=== PATIENT | female | born 1950 | race Caucasian/White ===

== ENCOUNTER → 2018-03-30 08:50 | Outpatient (CLI) | payer MEDICARE, OTHER, SELFPAY ==
[2018-03-30 10:02] LABS: Alanine Aminotransferase 45 IU/L (9-52); Albumin 4.5 g/dL (3.5-5.0); Albumin Globulin Ratio 1.7 (1.0-2.8); Alkaline Phosphatase 70 U/L (38-126); Aspartate Aminotransferase 44 IU/L (14-36); BUN Creatinine Ratio 21.7 (6-22); Bilirubin Total 0.9 mg/dL (0.2-1.3); Blood Urea Nitrogen 13 mg/dL (7-17); Calcium 9.4 mg/dL (8.4-10.2); Carbon Dioxide 34 mmol/L (22-32); Chloride 98 mmol/L (98-107); Cholesterol 147 mg/dL (140-199); Estimated Glomerular Filt Rate > 60.0 mL/min (>60); Globulin 2.7 g/dL (1.7-4.1); Glucose 91 mg/dL (80-110); HDL Cholesterol 64 mg/dL (40-60); HEMOLYSIS < 15 (0-50); LDL Cholesterol Calculated 66 mg/dL (<100); Potassium 4.3 mmol/L (3.4-5.1); Sodium 140 mmol/L (137-145); Total Protein 7.2 g/dL (6.3-8.2); Triglycerides 85 mg/dL (35-150)
[2018-03-30 10:35] LABS: TSH w/ Reflex to FT4 1.98 uIU/mL (0.47-4.68)
== END ==
PROVIDERS: PCP Family Medicine; Visit Provider Family Medicine
DX: E78.5 Hyperlipidemia, unspecified (principal); I10 Essential (primary) hypertension; R41.3 Other amnesia
CPT/HCPCS: 36415; 80053; 80061; 84443

== ENCOUNTER → 2018-05-10 11:33 | Outpatient (CLI) | payer MEDICARE, OTHER, SELFPAY ==
[2018-05-10 17:51] LABS: Bilirubin Urine UA NEGATIVE (NEGATIVE); Color Urine UA RED; Glucose Urine UA NEGATIVE (Normal); Ketones Urine UA NEGATIVE (NEGATIVE); Leukocyte Esterase Urine UA 3+ (NEGATIVE); Nitrite Urine UA NEGATIVE (Negative); Occult Blood Urine UA 3+ (Negative); Protein Urine UA 1+ (Negative); Specific Gravity Urine UA 1.015 (1.000-1.035); Urobilinogen Urine UA 0.2 E.U./dL (0.2)
[2018-05-10 17:52] LABS: Appearance Urine UA OTHER
[2018-05-10 18:17] LABS: Amorphous Sediment Urine 2+; RBC Urine >100/HPF (0-5/HPF); Squamous Epithelial Cell Urine 0-1 /HPF; WBC Urine 10-30/HPF (0-5/HPF)
[2018-05-10 18:18] LABS: Bacteria Urine Few (2-10); Culture Indicated Urine Specimen Cultured; Mucus Urine 1+ (Negative)
== END ==
PROVIDERS: PCP Family Medicine; Visit Provider Registered Nurse
DX: N39.0 Urinary tract infection, site not specified (principal)
CPT/HCPCS: 81001; 87077; 87086; 87186

== ENCOUNTER → 2018-05-21 13:36 | Outpatient (CLI) | payer MEDICARE, OTHER, SELFPAY ==
--- NOTE | 2018-05-21 13:38 | DI.MG.S_ITS ---
BILATERAL DIGITAL SCREENING MAMMOGRAM 3D/2D WITH CAD: 05/21/2018 CLINICAL: Routine screening. Family history of breast cancer. Comparison is made to exams dated: 05/17/2017 mammogram, 05/16/2016 mammogram, and 05/13/2015 mammogram - [facility]. The tissue of both breasts is extremely dense, which lowers the sensitivity of mammography. Current study was also evaluated with a Computer Aided Detection (CAD) system. There are mole markers on the right breast. No significant masses, calcifications, or other findings are seen in either breast. There has been no significant interval change. IMPRESSION: NEGATIVE There is no mammographic evidence of malignancy. A 1 year screening mammogram is recommended. This exam was interpreted at Station ID: [id number]. NOTE: For mammograms, a report in lay terms will be sent to the patient. Approximately 15% of breast malignancies will not be visualized mammographically. In the management of a palpable breast mass, a negative mammogram must not discourage biopsy of a clinically suspicious lesion. Electronically Signed By: Mohan mcqueen/bartolo:05/21/2018 20:28:23 letter sent: Normal Exam ACR BI-RADS Category 1: Negative 3341F
== END ==
PROVIDERS: PCP Family Medicine; Visit Provider Family Medicine
DX: Z12.31 Encounter for screening mammogram for malignant neoplasm of breast (principal); Z80.3 Family history of malignant neoplasm of breast
CPT/HCPCS: 77063; 77067

== ENCOUNTER → 2018-09-24 12:29 | Outpatient (CLI) | payer MEDICARE, OTHER, SELFPAY ==
[2018-09-24 12:57] LABS: Add Manual Diff / Slide Review NO; Basophils Absolute Auto 200 /uL (0-100); Basophils Percent Auto 2.7 % (0-2); Eosinophils Absolute Auto 300 /uL (0-450); Eosinophils Percent Auto 3.3 % (2-4); Hematocrit 41.6 % (36-46); Hemoglobin 13.9 g/dL (12.0-16.0); Lymphocytes Absolute Auto 2200 /uL (1100-4500); Lymphocytes Percent Auto 27.5 % (25-40); Mean Corpuscular HGB Conc 33.5 % (30-36); Mean Corpuscular Hemoglobin 30.3 PG (26-34); Mean Corpuscular Volume 90.5 fL (80-100); Monocytes Absolute Auto 500 /uL (0-900); Monocytes Percent Auto 6.8 % (3-14); Neutrophils Absolute Auto 4800 /uL (1500-7000); Neutrophils Percent Auto 59.7 % (50-75); Platelet Count 475 X10^3/uL (150-400); Red Cell Distribution Width 13.3 % (11.6-14.8); White Blood Cell Count 8.1 X10^3/uL (4.5-11.0)
[2018-09-24 13:54] LABS: Alanine Aminotransferase 36 IU/L (9-52); Albumin 4.7 g/dL (3.5-5.0); Albumin Globulin Ratio 1.9 (1.0-2.8); Alkaline Phosphatase 58 U/L (38-126); Aspartate Aminotransferase 35 IU/L (14-36); Bilirubin Total 0.5 mg/dL (0.2-1.3); Blood Urea Nitrogen 12 mg/dL (7-17); Calcium 9.9 mg/dL (8.4-10.2); Carbon Dioxide 29 mmol/L (22-32); Chloride 93 mmol/L (98-107); Estimated Glomerular Filt Rate > 60.0 mL/min (>60); Globulin 2.5 g/dL (1.7-4.1); Glucose 78 mg/dL (80-110); HEMOLYSIS < 15 (0-50); Sodium 133 mmol/L (137-145); Total Protein 7.2 g/dL (6.3-8.2)
== END ==
PROVIDERS: PCP Family Medicine; Visit Provider Family Medicine
DX: D47.3 Essential (hemorrhagic) thrombocythemia (principal); R94.5 Abnormal results of liver function studies
CPT/HCPCS: 36415; 80053; 85025

== ENCOUNTER → 2018-11-26 10:07 | Outpatient (CLI) | payer MEDICARE, OTHER, SELFPAY ==
[2018-11-26 11:06] LABS: Cholesterol 161 mg/dL (140-199); HDL Cholesterol 62 mg/dL (40-60); LDL Cholesterol Calculated 82 mg/dL (<100); Triglycerides 86 mg/dL (35-150)
== END ==
PROVIDERS: PCP Family Medicine; Visit Provider Family Medicine
DX: E78.5 Hyperlipidemia, unspecified (principal); E78.2 Mixed hyperlipidemia
CPT/HCPCS: 36415; 80061

== ENCOUNTER 2019-03-18 09:35 | Day surgery (SDC) | payer MEDICARE, OTHER, SELFPAY ==
--- NOTE | 2019-03-18 08:46 | PM.HP.1 ---
History of Present Illness History of Present Illness Date Patient Seen: 03/18/19 Time Patient Seen: 08:46 Chief complaint: [id number] Narrative: Patient presents for colorectal screening. They had a previous screening 5 years ago demonstrated a tubular adenoma polyp. On further history denies any recent gastrointestinal symptoms. No nausea, vomiting, abdominal pain, loss of appetite, unexplained weight loss, change in bowel habits, diarrhea, constipation, melena, hematochezia, or bright red blood per rectum. Patient History Medical History (Updated 03/18/19 @ 08:47 by Shakeel Christianson MD) Allergic rhinitis (Chronic) Cataract (Chronic 2013) Chicken pox (Resolved) Concussion (Resolved) Finger fracture, left (Resolved 2007) Foot pain (Chronic 2009) Hayfever (Chronic) Hearing loss (Chronic 2012) Hyperlipidemia (Chronic 12/16/14) Measles (Resolved) Meniere's disease (Chronic 12/16/14) Meniere's disease (Chronic 1993) Tinnitus (Chronic 1993) Tubular adenoma of colon (Resolved) Vertigo (Chronic 1993) Surgical History Anesthesia complication (Resolved) History of orthopedic surgery (Resolved 2007) Status post hysterectomy (Resolved 1986) Family History (Updated 02/04/18 @ 21:23 by Alida Rodriguez DO) Father Colon cancer Brain tumor Pneumonia Mother Hypertension Stroke Sister Breast cancer Brother Alcoholism Alcoholic liver disease Social History household members: spouse Smoking Status: Never smoker Family & Social History Family History (Updated 02/04/18 @ 21:23 by Alida Rodriguez DO) Father Colon cancer Brain tumor Pneumonia Mother Hypertension Stroke Sister Breast cancer Brother Alcoholism Alcoholic liver disease Tobacco & Substance use: Smoking Status Never smoker Meds Home Medications and Allergies Home Medications Medication Instructions Recorded Confirmed Type cetirizine 10 mg PO QDAY #0 04/27/12 12/28/18 History meclizine 25 mg PO TIDP PRN #0 06/10/17 12/28/18 History atorvastatin 20 mg tablet 10 mg PO HS #90 tab 09/26/18 12/28/18 Rx diazepam 2 mg tablet 2 mg PO Q4-6H PRN #20 tab 09/26/18 12/28/18 Rx hydrochlorothiazide 25 mg tablet 12.5 mg PO QAM #45 tab 10/01/18 12/28/18 Rx ondansetron 4 mg disintegrating 4 mg PO Q6-8H PRN #20 tab 10/19/18 12/28/18 Rx tablet mupirocin 2 % topical ointment 1 applictn TOP BID #15 gram 12/28/18 Rx gabapentin 100 mg capsule See Rx Instructions PO BEDTIME PRN 03/13/19 Rx #30 cap Allergies Allergy/AdvReac Type Severity Reaction Status Date / Time amoxicillin [AMOXICILLIN] Allergy Mild Verified 01/18/19 13:25 azithromycin [AZITHROMYCIN] Allergy Mild Verified 01/18/19 13:25 clavulanic acid Allergy Mild Verified 01/18/19 13:25 [CLAVULANIC ACID] codeine [CODEINE] Allergy Mild Verified 01/18/19 13:25 erythromycin base Allergy Mild Verified 01/18/19 13:25 [ERYTHROMYCIN BASE] Penicillins [PENICILLINS] Allergy Mild Verified 01/18/19 13:25 Review of Systems Review of Systems ROS Unobtainable: All systems reviewed & are unremarkable except as noted in HPI and below Exam Narrative Exam Narrative: General-adult female no acute distress, well nourished HEENT-moist mucous membranes, no scleral icterus Neck-supple with full range of motion, no lymphadenopathy Chest- no labored respirations, clear to auscultation bilaterally Cardiac-regular rate and rhythm Abdomen-soft, nontender, non distended Extremities-no edema, warm well perfused Neurological-alert and oriented x 3. No focal deficits Skin-normal temperature and turgor, no rashes or ulcers Assessment & Plan Assessment and plan (1) Screening for colon cancer: Current visit: No Status: Acute Assessment & Plan narrative: Patient is requiring colorectal screening. Colonoscopy is recommended. Technical details were discussed. Risks, benefits, alternatives explained. Risks including but not limited to sedation, aspiration, bleeding, pain, missed lesion, incomplete examination, need for further radiographic studies, colonic perforation, need for major abdominal surgery, and all attendant risks major surgery were discussed at length. All questions were answered to their satisfaction, and they voiced understanding.
[2019-03-18] MEDS: SODIUM CHLORIDE 0.9% 1,000 ML 200 ML IV (09:50)
[2019-03-18 09:59] VITALS: BP 146/71; PULSE 93; RESP 20; TEMP 36.4; O2SAT 98; BMI 21.1
[2019-03-18] MEDS: GLUCAGON,HUMAN RECOMBINANT 1 MG/ML VIAL IV (10:31)
[2019-03-18] MEDS: MIDAZOLAM 5 MG/5 ML VIAL IV (10:51)
[2019-03-18] MEDS: fentaNYL 250 MCG/5 ML INJ IV (10:52)
--- NOTE | 2019-03-18 10:54 | PM.OP.ENDO ---
Operative Date/Time/Diagnoses Date of procedure: 03/18/19 Time of procedure: 10:54 Pre-op diagnosis: Screening colonoscopy Post-op diagnosis: same Procedure & Clinicians Study performed: Colonoscopy Same procedure as scheduled: Yes Indications: 69-year-old female with prior endoscopy 5 years ago demonstrated a tubular adenoma polyp which was removed. Presents today for routine screening Surgeon: Shakeel Christianson Procedure Notes SCOAP/Timeout: Performed Procedure in detail: Digital rectal exam was performed that demonstrated external hemorrhoids no internal masses. This scope was carefully inserted into the rectum and advanced through the colon. The ileocecal valve was reached this was the extent of the colonoscopy. The scope was then to carefully withdrawn. Colon was notable only for diverticulosis. There were no masses polyps. Scope withdrawal time: 7 Sedation minutes: 22 Findings: diverticulosis Specimen(s): none sent Complications: none Impression: Diverticulosis Post-procedure Recommendations: Colonscopy in 10 years Disposition: same day surgery
[2019-03-18 10:56] VITALS: BP 126/58; PULSE 86; RESP 15; TEMP 36.6; O2SAT 97
[2019-03-18 11:01] VITALS: BP 117/55; PULSE 82; RESP 14; O2SAT 98
[2019-03-18 11:06] VITALS: BP 115/56; PULSE 81; RESP 14; O2SAT 98
[2019-03-18 11:11] VITALS: BP 117/59; PULSE 82; RESP 15; TEMP 36.2; O2SAT 95
[2019-03-18 11:16] VITALS: BP 111/61; PULSE 74; RESP 15; TEMP 36.5; O2SAT 99
== END 2019-03-18 11:30 | disposition home or self-care (01) ==
PROVIDERS: PCP Family Medicine; Visit Provider Surgery
PROC: 0DJD8ZZ Inspection of Lower Intestinal Tract, Via Natural or Artificial Opening Endoscopic (ICD-10-PCS; CPT 45378; principal; 2019-03-18 10:45)
DX: Z86.010 Personal history of colon polyps (principal); K57.30 Diverticulosis of large intestine without perforation or abscess without bleeding
CPT/HCPCS: G0105; 99152; J1610; J2250; J3010

== ENCOUNTER → 2019-03-22 11:22 | Outpatient (CLI) | payer MEDICARE, OTHER, SELFPAY ==
[2019-03-22 12:48] LABS: Add Manual Diff / Slide Review NO; Basophils Absolute Auto 100 /uL (0-100); Basophils Percent Auto 1.4 % (0-2); Eosinophils Absolute Auto 200 /uL (0-450); Hematocrit 40.4 % (36-46); Hemoglobin 13.9 g/dL (12.0-16.0); Lymphocytes Absolute Auto 1700 /uL (1100-4500); Lymphocytes Percent Auto 27.6 % (25-40); Mean Corpuscular HGB Conc 34.5 % (30-36); Mean Corpuscular Hemoglobin 31.1 PG (26-34); Monocytes Absolute Auto 400 /uL (0-900); Monocytes Percent Auto 6.2 % (3-14); Neutrophils Absolute Auto 3900 /uL (1500-7000); Neutrophils Percent Auto 61.8 % (50-75); Platelet Count 474 X10^3/uL (150-400); Red Blood Cell Count 4.48 X10^6/uL (4.0-5.2); Red Cell Distribution Width 13.7 % (11.6-14.8); White Blood Cell Count 6.3 X10^3/uL (4.5-11.0)
[2019-03-22 12:49] LABS: HEMOLYSIS < 15 (0-50); Iron 121 ug/dL (37-170)
[2019-03-22 13:00] LABS: Percent Iron Saturation 41 % (15-50); Total Iron Binding Capacity 294 ug/dL (265-497); Transferrin 246 mg/dL (206-381)
[2019-03-22 13:45] LABS: Vitamin B12 769 pg/mL (239-931)
[2019-03-22 13:48] LABS: Ferritin 75.2 ng/mL (11.1-264)
[2019-03-27 12:24] LABS: Homocysteine 7.1 umol/L (< 10.4)
[2019-03-27 21:24] LABS: Methylmalonic Acid 157 nmol/L (87-318)
== END ==
PROVIDERS: PCP Family Medicine; Visit Provider Family Medicine
DX: D47.3 Essential (hemorrhagic) thrombocythemia (principal); G47.9 Sleep disorder, unspecified; L29.9 Pruritus, unspecified; I10 Essential (primary) hypertension
CPT/HCPCS: 36415; 82607; 82728; 83090; 83540; 83550; 83921; 85025

== ENCOUNTER → 2019-05-27 10:43 | Outpatient (CLI) | payer MEDICARE, OTHER, SELFPAY ==
--- NOTE | 2019-05-27 | DI.MG.S_ITS ---
BILATERAL DIGITAL SCREENING MAMMOGRAM 3D/2D WITH CAD: 05/27/2019 CLINICAL: Routine screening. Family history of breast cancer. Comparison is made to exams dated: 05/21/2018 mammogram, 05/17/2017 mammogram, 05/16/2016 mammogram, 05/13/2015 mammogram, 04/15/2013 mammogram, and 04/16/2014 mammogram - [facility]. The tissue of both breasts is extremely dense, which lowers the sensitivity of mammography. Current study was also evaluated with a Computer Aided Detection (CAD) system. No significant masses, calcifications, or other findings are seen in either breast. There has been no significant interval change. IMPRESSION: NEGATIVE There is no mammographic evidence of malignancy. A 1 year screening mammogram is recommended. This exam was interpreted at Station ID: [id number]. NOTE: For mammograms, a report in lay terms will be sent to the patient. Approximately 15% of breast malignancies will not be visualized mammographically. In the management of a palpable breast mass, a negative mammogram must not discourage biopsy of a clinically suspicious lesion. Electronically Signed By: Vaibhav cifuentes/bartolo:05/27/2019 17:31:34 letter sent: Normal Exam ACR BI-RADS Category 1: Negative 3341F
--- NOTE | 2019-05-27 10:45 | DI.RAD.S_ITS ---
PROCEDURE: XR ELBOW LT MIN 3V INDICATIONS: injury TECHNIQUE: 3 views of the elbow were acquired. COMPARISON: None. FINDINGS: Bones: No fractures or dislocations. No suspicious bony lesions. Soft tissues: No elbow joint effusion. No suspicious soft tissue calcifications. IMPRESSION: No trauma the elbow is found. Dictated by: Se Velasco M.D. on 05/27/2019 at 11:38 Approved by: Se Velasco M.D. on 05/27/2019 at 11:38
== END ==
PROVIDERS: PCP Family Medicine; Visit Provider Family Medicine
DX: Z12.31 Encounter for screening mammogram for malignant neoplasm of breast (principal); Z80.3 Family history of malignant neoplasm of breast; S59.902A Unspecified injury of left elbow, initial encounter; X58.XXXA Exposure to other specified factors, initial encounter
CPT/HCPCS: 73080; 77063; 77067

== ENCOUNTER → 2019-06-11 11:27 | Outpatient (CLI) | payer MEDICARE, OTHER, SELFPAY ==
[2019-06-11 12:24] LABS: Appearance Urine UA CLEAR; Bilirubin Urine UA NEGATIVE (NEGATIVE); Color Urine UA YELLOW; Glucose Urine UA NEGATIVE (Negative); Ketones Urine UA NEGATIVE (NEGATIVE); Leukocyte Esterase Urine UA 1+ (NEGATIVE); Nitrite Urine UA NEGATIVE (Negative); Occult Blood Urine UA 2+ (Negative); Protein Urine UA NEGATIVE (Negative); Specific Gravity Urine UA <=1.005 (1.000-1.035); Urobilinogen Urine UA 0.2 E.U./dL (0.2)
[2019-06-11 12:33] LABS: RBC Urine 1-5/HPF (0-5/HPF); WBC Urine 1-5/HPF (0-5/HPF)
[2019-06-11 12:34] LABS: Bacteria Urine Occasional (0-1); Culture Indicated Urine Specimen Cultured
== END ==
PROVIDERS: PCP Family Medicine; Visit Provider Family Medicine
DX: R30.0 Dysuria (principal)
CPT/HCPCS: 81001; 87077; 87086; 87185; 87186

== ENCOUNTER → 2019-06-17 14:38 | Outpatient (CLI) | payer MEDICARE, OTHER, SELFPAY ==
--- NOTE | 2019-06-17 14:39 | DI.US.S_ITS ---
PROCEDURE: US ABDOMEN LIMITED INDICATIONS: ESSENTIAL THROBOCYTOSIS TECHNIQUE: Real-time focused scanning was performed of the abdomen, with image documentation. COMPARISON: None. FINDINGS: Limited evaluation of the abdomen was performed to evaluate the spleen. The spleen is normal in size and measures up to approximately 9.8 cm in length. No focal splenic lesions are evident. No perisplenic fluid collections are seen. No free fluid is evident within the left upper quadrant. Please note that the other solid organs of the abdomen were not evaluated. The splenic vein is patent and otherwise unremarkable. IMPRESSION: Unremarkable spleen. Dictated by: Simon Cee M.D. on 06/17/2019 at 14:17 Approved by: Simon Cee M.D. on 06/17/2019 at 14:19
== END ==
PROVIDERS: PCP Family Medicine; Visit Provider Internal Medicine Hematology & Oncology
DX: D47.3 Essential (hemorrhagic) thrombocythemia (principal)
CPT/HCPCS: 76705

== ENCOUNTER → 2020-06-02 10:06 | Outpatient (CLI) | payer MEDICARE, OTHER, SELFPAY ==
--- NOTE | 2020-06-02 | DI.MG.S_ITS ---
BILATERAL DIGITAL SCREENING MAMMOGRAM 3D/2D WITH CAD: 06/02/2020 CLINICAL: Routine screening. Family history of breast cancer. Comparison is made to exams dated: 05/27/2019 mammogram, 05/21/2018 mammogram, and 05/17/2017 mammogram - [facility]. The tissue of both breasts is heterogeneously dense. This may lower the sensitivity of mammography. Current study was also evaluated with a Computer Aided Detection (CAD) system. No significant masses, calcifications, or other findings are seen in either breast. There has been no significant interval change. IMPRESSION: NEGATIVE There is no mammographic evidence of malignancy. A 1 year screening mammogram is recommended. This exam was interpreted at Station ID: [id number]. NOTE: For mammograms, a report in lay terms will be sent to the patient. Approximately 15% of breast malignancies will not be visualized mammographically. In the management of a palpable breast mass, a negative mammogram must not discourage biopsy of a clinically suspicious lesion. Electronically Signed By: Alcides reynolds/bartolo:06/02/2020 14:15:03 letter sent: Normal Exam ACR BI-RADS Category 1: Negative 3341F
== END ==
PROVIDERS: PCP Family Medicine; Referring Provider Family Medicine; Visit Provider Family Medicine
DX: Z12.31 Encounter for screening mammogram for malignant neoplasm of breast (principal); Z80.3 Family history of malignant neoplasm of breast
CPT/HCPCS: 77063; 77067

== ENCOUNTER → 2020-07-08 09:57 | Outpatient (CLI) | payer MEDICARE, OTHER, SELFPAY ==
[2020-07-08 12:18] LABS: COVID19 -Nasal RAPID Negative (Negative)
== END ==
PROVIDERS: PCP Family Medicine; Visit Provider Family Medicine
DX: R05 Cough (principal); Z20.822 Contact with and (suspected) exposure to COVID-19
CPT/HCPCS: 87635

== ENCOUNTER → 2020-08-06 09:56 | Outpatient (CLI) | payer MEDICARE, OTHER, SELFPAY ==
--- NOTE | 2020-08-06 10:02 | DI.RAD.S_ITS ---
PROCEDURE: XR CERVICAL SPINE 2V OR 3V INDICATIONS: CERVICALGIA TECHNIQUE: 3 view(s) of the cervical spine were acquired. COMPARISON: None. FINDINGS: Bones: No fractures or dislocations to the T1 level. The lateral masses of C1 appear intact on the odontoid view. No suspicious bony lesions. Moderately severe cervical spondylitic change. Multilevel facet arthropathy. Uncovertebral joint hypertrophy at C5-C6 and C6-C7. Soft tissues: No prevertebral soft tissue swelling. Dense carotid bifurcation region calcifications on the right IMPRESSION: 1. Cervical spondylosis. 2. No evidence acute cervical fracture or dislocation. 3. ASCVD. Dictated by: Sukhjinder Bryan M.D. on 08/06/2020 at 11:17 Approved by: Sukhjinder Bryan M.D. on 08/06/2020 at 11:27
== END ==
PROVIDERS: PCP Family Medicine; Referring Provider Chiropractor; Visit Provider Chiropractor
DX: M47.812 Spondylosis without myelopathy or radiculopathy, cervical region (principal)
CPT/HCPCS: 72040

== ENCOUNTER → 2020-08-26 12:00 | Outpatient (CLI) | payer MEDICARE, OTHER, SELFPAY ==
[2020-08-26 12:52] LABS: Alanine Aminotransferase 24 IU/L (<35); Albumin 4.8 g/dL (3.5-5.0); Albumin Globulin Ratio 1.7 (1.0-2.8); Alkaline Phosphatase 62 U/L (38-126); Aspartate Aminotransferase 39 IU/L (14-36); BUN Creatinine Ratio 23.3 (6-22); Bilirubin Total 0.6 mg/dL (0.2-1.3); Blood Urea Nitrogen 14 mg/dL (7-17); Carbon Dioxide 31 mmol/L (22-32); Chloride 95 mmol/L (98-107); Cholesterol 187 mg/dL (140-199); Estimated Glomerular Filt Rate > 60.0 mL/min (>60); Globulin 2.9 g/dL (1.7-4.1); Glucose 96 mg/dL (80-110); HDL Cholesterol 67 mg/dL (40-60); HEMOLYSIS < 15 (0-50); LDL Cholesterol Calculated 95 mg/dL (<100); Potassium 4.4 mmol/L (3.4-5.1); Sodium 134 mmol/L (137-145); Total Protein 7.7 g/dL (6.3-8.2); Triglycerides 124 mg/dL (35-150)
[2020-08-26 13:30] LABS: TSH w/ Reflex to FT4 2.22 uIU/mL (0.47-4.68)
== END ==
PROVIDERS: PCP Family Medicine; Referring Provider Family Medicine; Visit Provider Family Medicine
DX: D47.3 Essential (hemorrhagic) thrombocythemia (principal); I10 Essential (primary) hypertension; Z13.220 Encounter for screening for lipoid disorders; Z13.29 Encounter for screening for other suspected endocrine disorder
CPT/HCPCS: 36415; 80053; 80061; 84443

== ENCOUNTER → 2020-09-04 11:03 | Outpatient (CLI) | payer MEDICARE, OTHER, SELFPAY ==
--- NOTE | 2020-09-04 11:04 | DI.US.S_ITS ---
PROCEDURE: US CAROTID DOPPLER BI INDICATIONS: Carotid Arthersclerosis TECHNIQUE: Color and pulse Doppler interrogation was performed of both carotid systems, with image documentation and velocity measurements. COMPARISON: None. FINDINGS: Stenosis calculations are based on SRU (Society of Radiologists in Ultrasound) criteria. Right side: Brachial blood pressure: 157/75 mm Hg. Common carotid artery peak systolic velocity: 73 cm/sec. Internal carotid artery peak systolic velocity: 88 cm/sec. Internal carotid artery end diastolic velocity: 25 cm/sec. External carotid artery peak systolic velocity: 94 cm/sec. ICA/CCA peak systolic ratio: 1.2 . Talavera scale imaging description: Minimal plaque Percent internal carotid artery stenosis: Less than 50% . Vertebral artery: Flow direction is antegrade. Left side: Brachial blood pressure: 159/75 mm Hg. Common carotid artery peak systolic velocity: 69 cm/sec. Internal carotid artery peak systolic velocity: 61 cm/sec. Internal carotid artery end diastolic velocity: 21 cm/sec. External carotid artery peak systolic velocity: 69 cm/sec. ICA/CCA peak systolic ratio: 0.9 . Talavera scale imaging description: Mild scattered plaque. Percent internal carotid artery stenosis: Less than 50% . Vertebral artery: Flow direction is antegrade. IMPRESSION: Less than 50% bilateral internal carotid artery stenosis. Dictated by: Derek Saez [facility] Interpreted: Anju Mendez MD on 09/04/2020 at 13:51 Approved by: Anju Mendez M.D. on 09/04/2020 at 14:06
== END ==
PROVIDERS: PCP Family Medicine; Referring Provider Family Medicine; Visit Provider Family Medicine
DX: I65.23 Occlusion and stenosis of bilateral carotid arteries (principal)
CPT/HCPCS: 93880

== ENCOUNTER → 2020-09-16 13:39 | Outpatient (CLI) | payer MEDICARE, OTHER, SELFPAY ==
--- NOTE | 2020-09-16 13:40 | DI.MRI.S_ITS ---
PROCEDURE: MR CERVICAL SPINE WO CON INDICATIONS: neck spondylosis and impingment TECHNIQUE: Noncontrast sagittal T1 spin echo and T2 fast spin echo, sagittal STIR, foraminal oblique sagittal T2 fast spin echo, and axial gradient echo or T2 fast spin echo through the cervical spine. COMPARISON: [facility], CR, XR CERVICAL SPINE 2V OR 3V, 08/06/2020, 10:03. FINDINGS: Image quality: Excellent. Alignment and Curvature: There is normal bony alignment. Bone Marrow: Marrow demonstrates normal overall signal. Spinal Cord: Visualized spinal cord has normal size and signal. No cerebellar tonsillar herniation. Paraspinous Soft Tissues: No paravertebral masses. Prevertebral soft tissues are normal in thickness. C2-C3: Loss of disc signal. No central stenosis. No neural foraminal narrowing. No neural compression. C3-C4: Loss of disc signal. Mild, diffuse disc bulge. Mild bilateral facet hypertrophy. No central stenosis. Mild bilateral neural foraminal narrowing. No neural compression. C4-C5: Loss of disc signal. Mild to moderate diffuse disc bulge. Mild right and moderate left facet hypertrophy. Mild right uncovertebral joint hypertrophy. Mild narrowing of the central canal. Mild right and moderate left neural foraminal narrowing. No neural compression. C5-C6: Loss of disc signal and height. Mild, diffuse disc bulge. Large right central disc protrusion. Severe narrowing of the central canal with slight compression of the cervical spinal cord. Mild bilateral facet hypertrophy. Mild right uncovertebral joint hypertrophy. Mild bilateral neural foraminal narrowing. C6-C7: Loss of disc signal and height. Mild, diffuse disc bulge. Mild bilateral facet hypertrophy. Moderate left uncovertebral joint hypertrophy. Moderate narrowing of the central canal. Moderate right and severe left neural foraminal narrowing with compression of the exiting left C7 nerve root. C7-T1: Normal appearance. IMPRESSION: 1. Multilevel degenerative disc disease. 2. Multilevel facet and uncovertebral arthropathy. 3. Severe C5-C6 central canal narrowing with slight compression of the cervical spinal cord. 4. Severe left C6-C7 neural foraminal narrowing with compression of the exiting left C7 nerve root. Dictated by: Meera Askew MD, PhD on 09/16/2020 at 17:08 Approved by: Meera Askew MD, PhD on 09/16/2020 at 17:15
== END ==
PROVIDERS: PCP Family Medicine; Referring Provider Family Medicine; Visit Provider Family Medicine
DX: M50.31 Other cervical disc degeneration, high cervical region (principal); M50.322 Other cervical disc degeneration at C5-C6 level; M50.323 Other cervical disc degeneration at C6-C7 level; R42 Dizziness and giddiness
CPT/HCPCS: 72141

== ENCOUNTER → 2021-03-31 11:52 | Outpatient (CLI) | payer MEDICARE, OTHER, SELFPAY ==
--- NOTE | 2021-03-31 | DI.CT.S_ITS ---
PROCEDURE: CT SINUS SCREEN WO CON INDICATIONS: Other specified disorders of nose and nasal sinuses TECHNIQUE: Noncontrast 3.0 mm axial images acquired from the frontal sinuses to the mid-sella, with coronal and sagittal reformats. For radiation dose reduction, the following was used: automated exposure control, adjustment of mA and/or kV according to patient size. COMPARISON: None. FINDINGS: Image quality: Excellent. Maxillary Sinuses: Bony changes in the maxillary sinuses indicative of chronic/recurrent sinusitis, including thickening with sclerosis and osteitis. There is moderate mucosal thickening in the bilateral maxillary sinuses measuring up to 13 millimeters on the right and 7 millimeters on the left. Maxillary sinus outflow tracts are narrowed bilaterally, right greater than left (series 4, images 21 and 20). Ethmoid Air Cells: Mild anterior ethmoid air cell mucosal thickening. Sphenoid Sinuses: Mild mucosal thickening in the right sphenoid sinus with bony features of chronicity/recurrent sinusitis. Narrowing of the right sphenoid ethmoid recess. Left sphenoid sinus is clear. Frontal Sinuses: Clear. No bony remodeling or destruction. Miscellaneous: Pneumatized superior nasal turbinates. Middle and inferior nasal turbinates are non pneumatized. There is soft tissue density in the right posterior nasal cavity (series 4, image 26) between the middle and inferior nasal turbinates which may represent polyp, mass, or mucosal thickening. IMPRESSION: Findings of a chronic/recurrent right sphenoid and bilateral maxillary sinusitis. Narrowing of the bilateral maxillary sinus outflow tracts due to mucosal thickening, along with the right sphenoid ethmoid recess. Moderate mucosal thickening in the bilateral maxillary sinuses and mild mucosal thickening in the right sphenoid sinuses as well as the bilateral ethmoid air cells. Soft tissue density in the right posterior nasal cavity which may represent mass, polyp, or mucosal thickening. Dictated by: Yassine Moon M.D. on 03/31/2021 at 13:37 Approved by: Yassine Moon M.D. on 03/31/2021 at 13:52
== END ==
PROVIDERS: PCP Family Medicine; Referring Provider Otolaryngology; Visit Provider Otolaryngology
DX: J34.89 Other specified disorders of nose and nasal sinuses (principal); J01.41 Acute recurrent pansinusitis; J32.0 Chronic maxillary sinusitis
CPT/HCPCS: 70486

== ENCOUNTER → 2021-05-14 11:15 | Outpatient (CLI) | payer MEDICARE, OTHER, SELFPAY ==
[2021-05-14] MEDS: COVID-19 VACC #3, MRNA(MOD) 50 MCG/0.25 ML VIAL IM (11:21)
== END ==
PROVIDERS: PCP Family Medicine; Visit Provider Internal Medicine
DX: Z23 Encounter for immunization (principal)
CPT/HCPCS: 0013A; 91301

== ENCOUNTER → 2021-06-03 10:39 | Outpatient (CLI) | payer MEDICARE, OTHER, SELFPAY ==
--- NOTE | 2021-06-03 | DI.MG.S_ITS ---
BILATERAL DIGITAL SCREENING MAMMOGRAM 3D/2D WITH CAD: 06/03/2021 CLINICAL: Routine screening. Family history of breast cancer. Comparison is made to exams dated: 06/02/2020 mammogram, 05/27/2019 mammogram, and 05/21/2018 mammogram - [facility]. The tissue of both breasts is heterogeneously dense. This may lower the sensitivity of mammography. Current study was also evaluated with a Computer Aided Detection (CAD) system. There are benign calcifications in the left breast. No significant masses, calcifications, or other findings are seen in either breast. There has been no significant interval change. IMPRESSION: BENIGN There is no mammographic evidence of malignancy. A 1 year screening mammogram is recommended. This exam was interpreted at Station ID: [id number]. NOTE: For mammograms, a report in lay terms will be sent to the patient. Approximately 15% of breast malignancies will not be visualized mammographically. In the management of a palpable breast mass, a negative mammogram must not discourage biopsy of a clinically suspicious lesion. Electronically Signed By: Keyla clark/bartolo:06/03/2021 11:51:37 letter sent: Normal Exam ACR BI-RADS Category 2: Benign Finding(s) 3342F
== END ==
PROVIDERS: PCP Family Medicine; Referring Provider Family Medicine; Visit Provider Family Medicine
DX: Z12.31 Encounter for screening mammogram for malignant neoplasm of breast (principal); Z80.3 Family history of malignant neoplasm of breast
CPT/HCPCS: 77063; 77067

== ENCOUNTER → 2021-07-30 12:12 | Outpatient (CLI) | payer MEDICARE, OTHER, SELFPAY | PROVIDERS: PCP Family Medicine; Visit Provider Family Medicine | DX: R30.0 Dysuria (principal) | CPT/HCPCS: 87086 ==

== ENCOUNTER → 2021-08-13 08:13 | Outpatient (CLI) | payer MEDICARE, OTHER, SELFPAY ==
[2021-08-13 10:14] LABS: Add Manual Diff / Slide Review NO; Basophils Absolute Auto 100 /uL (0-100); Basophils Percent Auto 1.3 % (0-2); Eosinophils Absolute Auto 200 /uL (0-450); Eosinophils Percent Auto 3.5 % (2-4); Hematocrit 41.5 % (36-46); Hemoglobin 14.2 g/dL (12.0-16.0); Lymphocytes Absolute Auto 1500 /uL (1100-4500); Lymphocytes Percent Auto 25.6 % (25-40); Mean Corpuscular HGB Conc 34.3 % (30-36); Mean Corpuscular Hemoglobin 30.4 PG (26-34); Mean Corpuscular Volume 88.7 fL (80-100); Monocytes Absolute Auto 300 /uL (0-900); Monocytes Percent Auto 5.7 % (3-14); Neutrophils Absolute Auto 3900 /uL (1500-7000); Neutrophils Percent Auto 63.9 % (50-75); Platelet Count 524 X10^3/uL (150-400); Red Blood Cell Count 4.68 X10^6/uL (4.0-5.2); Red Cell Distribution Width 13.8 % (11.6-14.8); White Blood Cell Count 6.1 X10^3/uL (4.5-11.0)
[2021-08-13 10:22] LABS: Alanine Aminotransferase 23 IU/L (<35); Albumin 4.6 g/dL (3.5-5.0); Albumin Globulin Ratio 1.6 (1.0-2.8); Alkaline Phosphatase 53 U/L (38-126); Aspartate Aminotransferase 36 IU/L (14-36); BUN Creatinine Ratio 22.1 (6-22); Bilirubin Total 0.8 mg/dL (0.2-1.3); Blood Urea Nitrogen 15 mg/dL (7-17); Calcium 9.4 mg/dL (8.4-10.2); Carbon Dioxide 33 mmol/L (22-32); Chloride 96 mmol/L (98-107); Cholesterol 194 mg/dL (140-199); Estimated Glomerular Filt Rate > 60.0 mL/min (>60); Globulin 2.8 g/dL (1.7-4.1); Glucose 88 mg/dL (80-110); HDL Cholesterol 62 mg/dL (40-60); HEMOLYSIS < 15 (0-50); LDL Cholesterol Calculated 105 mg/dL (<100); Potassium 4.3 mmol/L (3.4-5.1); Sodium 134 mmol/L (137-145); Total Protein 7.4 g/dL (6.3-8.2); Triglycerides 133 mg/dL (35-150)
== END ==
PROVIDERS: PCP Family Medicine; Referring Provider Family Medicine; Visit Provider Family Medicine
DX: E78.5 Hyperlipidemia, unspecified (principal); E78.2 Mixed hyperlipidemia; D47.3 Essential (hemorrhagic) thrombocythemia; G47.9 Sleep disorder, unspecified; M18.0 Bilateral primary osteoarthritis of first carpometacarpal joints; R25.2 Cramp and spasm
CPT/HCPCS: 36415; 80053; 80061; 84443; 85025

== ENCOUNTER → 2021-08-26 16:35 | Outpatient (CLI) | payer MEDICARE, OTHER, SELFPAY ==
--- NOTE | 2021-08-26 | DI.MRI.S_ITS ---
PROCEDURE: MR LUMBAR SPINE WO CON INDICATIONS: spinal stenosis TECHNIQUE: Noncontrast sagittal T1 spin echo and T2 fast echo, sagittal STIR, axial T1 and T2 fast spin echo through the lumbar spine. In cases with scoliosis, additional coronal T2 fast spin echo may be performed. COMPARISON: [facility], MR, L-SPINE WITHOUT CONTRAST, 03/04/2016, 7:33. FINDINGS: Image quality: Excellent. Alignment and Curvature: There is normal bony alignment. Bone Marrow: Marrow is of normal overall signal. No acute vertebral body compression fractures. Spinal Cord: Conus medullaris terminates at the L1 level. Visualized cord demonstrates normal signal and size. Paraspinous Soft Tissues: No paravertebral masses. At L4-5, there is mild disc space narrowing with circumferential disc bulge and high-intensity zone in the posterior annulus reflecting annular fissure or tear. Mild central stenosis with mild bilateral foraminal stenosis present. At the remaining levels, no central or foraminal stenosis present. IMPRESSION: 1. Mild degenerative changes at L4-5 without significant stenosis. Approved by: Rosalio Henley M.D. on 08/27/2021 at 11:00
== END ==
PROVIDERS: PCP Family Medicine; Referring Provider Physical Medicine & Rehabilitation Pain Medicine; Visit Provider Physical Medicine & Rehabilitation Pain Medicine
DX: M48.062 Spinal stenosis, lumbar region with neurogenic claudication (principal); M47.816 Spondylosis without myelopathy or radiculopathy, lumbar region
CPT/HCPCS: 72148

== ENCOUNTER → 2022-01-07 08:19 | Outpatient (CLI) | payer MEDICARE, OTHER, SELFPAY ==
[2022-01-07 08:45] LABS: Add Manual Diff / Slide Review NO; Basophils Absolute Auto 100 /uL (0-100); Basophils Percent Auto 2.3 % (0-2); Eosinophils Absolute Auto 200 /uL (0-450); Eosinophils Percent Auto 3.6 % (2-4); Hematocrit 39.1 % (36-46); Hemoglobin 13.8 g/dL (12.0-16.0); Lymphocytes Absolute Auto 1700 /uL (1100-4500); Lymphocytes Percent Auto 29.4 % (25-40); Mean Corpuscular HGB Conc 35.2 % (30-36); Mean Corpuscular Hemoglobin 30.9 PG (26-34); Mean Corpuscular Volume 87.8 fL (80-100); Monocytes Absolute Auto 300 /uL (0-900); Monocytes Percent Auto 5.6 % (3-14); Neutrophils Absolute Auto 3300 /uL (1500-7000); Neutrophils Percent Auto 59.1 % (50-75); Platelet Count 518 X10^3/uL (150-400); Red Blood Cell Count 4.45 X10^6/uL (4.0-5.2); Red Cell Distribution Width 13.7 % (11.6-14.8); White Blood Cell Count 5.6 X10^3/uL (4.5-11.0)
[2022-01-07 09:22] LABS: Alanine Aminotransferase 25 IU/L (<35); Albumin 4.5 g/dL (3.5-5.0); Albumin Globulin Ratio 1.8 (1.0-2.8); Alkaline Phosphatase 60 U/L (38-126); Aspartate Aminotransferase 38 IU/L (14-36); BUN Creatinine Ratio 21.4 (6-22); Bilirubin Total 0.7 mg/dL (0.2-1.3); Blood Urea Nitrogen 15 mg/dL (7-17); Calcium 9.1 mg/dL (8.4-10.2); Carbon Dioxide 31 mmol/L (22-32); Chloride 92 mmol/L (98-107); Cholesterol 155 mg/dL (140-199); Estimated Glomerular Filt Rate > 60 mL/min (>60); Globulin 2.5 g/dL (1.7-4.1); Glucose 85 mg/dL (80-110); HDL Cholesterol 65 mg/dL (40-60); HEMOLYSIS < 15 (0-50); LDL Cholesterol Calculated 70 mg/dL (<100); Potassium 4.6 mmol/L (3.4-5.1); Sodium 128 mmol/L (137-145); Triglycerides 101 mg/dL (35-150)
[2022-01-07 12:36] LABS: Appearance Urine UA CLEAR; Bilirubin Urine UA NEGATIVE (NEGATIVE); Color Urine UA YELLOW; Glucose Urine UA NEGATIVE (Negative); Ketones Urine UA NEGATIVE (NEGATIVE); Leukocyte Esterase Urine UA TRACE (NEGATIVE); Nitrite Urine UA NEGATIVE (Negative); Occult Blood Urine UA TRACE-LYSED (Negative); Protein Urine UA NEGATIVE (Negative); Specific Gravity Urine UA <=1.005 (1.000-1.035); Urobilinogen Urine UA 0.2 E.U./dL (0.2)
[2022-01-07 12:46] LABS: Bacteria Urine None Seen; RBC Urine 0-1/HPF (0-5/HPF); Squamous Epithelial Cell Urine 0-1 /HPF (0-5/HPF); WBC Urine 0-1/HPF (0-5/HPF)
[2022-01-07 12:47] LABS: Culture Indicated Urine Specimen Cultured
[2022-01-07 14:47] LABS: Creatinine Urine Random 60.7 mg/dL
[2022-01-07 14:48] LABS: Microalbumi Creatinin Ratio Ur 14.8 ug/mg CR (<30); Microalbumin Urine Random 0.9 mg/dL (0-1.6)
[2022-01-08 19:17] LABS: Sodium Urine Random 15 mmol/L (30-90)
[2022-01-10 17:49] LABS: Osmolality, Serum 265 mOsmol/kg (280-301)
[2022-01-11 12:11] LABS: Osmolality Urine 263 mOsmol/kg (.)
== END ==
PROVIDERS: PCP Pediatrics; Referring Provider Otolaryngology; Visit Provider Otolaryngology
DX: H93.A2 Pulsatile tinnitus, left ear (principal); E78.2 Mixed hyperlipidemia; D47.3 Essential (hemorrhagic) thrombocythemia; E78.5 Hyperlipidemia, unspecified; H81.09 Meniere's disease, unspecified ear; R30.0 Dysuria; Z13.820 Encounter for screening for osteoporosis; Z78.0 Asymptomatic menopausal state; E87.1 Hypo-osmolality and hyponatremia
CPT/HCPCS: 36415; 80053; 80061; 81001; 82043; 82570; 83930; 83935; 84300; 85025; 87086

== ENCOUNTER → 2022-01-27 10:35 | Outpatient (CLI) | payer MEDICARE, OTHER, SELFPAY ==
[2022-01-27 12:57] LABS: Alanine Aminotransferase 24 IU/L (<35); Albumin 4.4 g/dL (3.5-5.0); Albumin Globulin Ratio 1.5 (1.0-2.8); Alkaline Phosphatase 71 U/L (38-126); Aspartate Aminotransferase 38 IU/L (14-36); BUN Creatinine Ratio 19.2 (6-22); Bilirubin Total 0.7 mg/dL (0.2-1.3); Blood Urea Nitrogen 14 mg/dL (7-17); Calcium 9.4 mg/dL (8.4-10.2); Carbon Dioxide 32 mmol/L (22-32); Chloride 100 mmol/L (98-107); Estimated Glomerular Filt Rate > 60 mL/min (>60); Glucose 84 mg/dL (80-110); HEMOLYSIS < 15 (0-50); Potassium 4.4 mmol/L (3.4-5.1); Sodium 137 mmol/L (137-145); Total Protein 7.4 g/dL (6.3-8.2)
== END ==
PROVIDERS: PCP Pediatrics; Referring Provider Pediatrics; Visit Provider Pediatrics
DX: E87.1 Hypo-osmolality and hyponatremia (principal)
CPT/HCPCS: 36415; 80053

== ENCOUNTER → 2022-02-13 12:27 | Outpatient (CLI) | payer MEDICARE, OTHER, SELFPAY | PROVIDERS: PCP Pediatrics; Visit Provider Nurse Practitioner Family | DX: N34.3 Urethral syndrome, unspecified (principal) | CPT/HCPCS: 87077; 87086; 87186 ==

== ENCOUNTER → 2022-02-14 15:42 | Outpatient (CLI) | payer MEDICARE, OTHER, SELFPAY ==
[2022-02-14 16:19] LABS: Add Manual Diff / Slide Review NO; Basophils Absolute Auto 100 /uL (0-100); Basophils Percent Auto 1.1 % (0-2); Eosinophils Absolute Auto 500 /uL (0-450); Eosinophils Percent Auto 5.9 % (2-4); Hematocrit 37.4 % (36-46); Hemoglobin 12.9 g/dL (12.0-16.0); Lymphocytes Absolute Auto 1600 /uL (1100-4500); Lymphocytes Percent Auto 20.1 % (25-40); Mean Corpuscular HGB Conc 34.5 % (30-36); Mean Corpuscular Hemoglobin 30.7 PG (26-34); Monocytes Absolute Auto 500 /uL (0-900); Monocytes Percent Auto 6.3 % (3-14); Neutrophils Absolute Auto 5400 /uL (1500-7000); Neutrophils Percent Auto 66.6 % (50-75); Platelet Count 560 X10^3/uL (150-400); Red Cell Distribution Width 13.8 % (11.6-14.8); White Blood Cell Count 8.1 X10^3/uL (4.5-11.0)
[2022-02-14 16:41] LABS: Alanine Aminotransferase 30 IU/L (<35); Albumin Globulin Ratio 1.4 (1.0-2.8); Alkaline Phosphatase 92 U/L (38-126); Aspartate Aminotransferase 38 IU/L (14-36); Bilirubin Total 0.4 mg/dL (0.2-1.3); Blood Urea Nitrogen 17 mg/dL (7-17); Carbon Dioxide 31 mmol/L (22-32); Chloride 97 mmol/L (98-107); Estimated Glomerular Filt Rate > 60 mL/min (>60); Globulin 2.9 g/dL (1.7-4.1); Glucose 88 mg/dL (80-110); HEMOLYSIS < 15 (0-50); Lactate Dehydrogenase 460 U/L (313-618); Potassium 4.3 mmol/L (3.4-5.1); Sodium 134 mmol/L (137-145); Total Protein 6.9 g/dL (6.3-8.2)
[2022-02-16 05:04] LABS: Beta-2-Microglobulin 2.1 mg/L (0.6-2.4)
== END ==
PROVIDERS: Internal Medicine Hematology & Oncology; PCP Pediatrics; Referring Provider Pediatrics; Visit Provider Pediatrics
DX: H81.09 Meniere's disease, unspecified ear (principal); D47.3 Essential (hemorrhagic) thrombocythemia; Z15.89 Genetic susceptibility to other disease
CPT/HCPCS: 36415; 80053; 82232; 83615; 85025

== ENCOUNTER → 2022-02-19 08:45 | Outpatient (CLI) | payer MEDICARE, OTHER, SELFPAY ==
[2022-02-19 09:35] LABS: Cholesterol 220 mg/dL (140-199); HDL Cholesterol 58 mg/dL (40-60); LDL Cholesterol Calculated 136 mg/dL (<100); Triglycerides 130 mg/dL (35-150)
== END ==
PROVIDERS: PCP Pediatrics; Referring Provider Pediatrics; Visit Provider Pediatrics
DX: E78.2 Mixed hyperlipidemia (principal)
CPT/HCPCS: 36415; 80061

== ENCOUNTER → 2022-02-24 10:32 | Outpatient (CLI) | payer MEDICARE, OTHER, SELFPAY ==
[2022-02-24 11:37] LABS: Appearance Urine UA CLEAR; Bilirubin Urine UA NEGATIVE (NEGATIVE); Color Urine UA YELLOW; Glucose Urine UA NEGATIVE (Negative); Ketones Urine UA NEGATIVE (NEGATIVE); Leukocyte Esterase Urine UA 1+ (NEGATIVE); Nitrite Urine UA NEGATIVE (Negative); Occult Blood Urine UA NEGATIVE (Negative); Protein Urine UA NEGATIVE (Negative); Urobilinogen Urine UA 0.2 E.U./dL (0.2)
[2022-02-24 12:05] LABS: pH Urine UA 7.5 (4.5-8.0)
[2022-02-24 12:10] LABS: Bacteria Urine None Seen; Culture Indicated Urine Specimen Cultured; RBC Urine None Seen (0-5/HPF); WBC Urine 1-5/HPF (0-5/HPF)
== END ==
PROVIDERS: PCP Pediatrics; Referring Provider Pediatrics; Visit Provider Pediatrics
DX: R30.0 Dysuria (principal)
CPT/HCPCS: 81001; 87086

== ENCOUNTER → 2022-02-28 10:14 | Outpatient (CLI) | payer MEDICARE, OTHER, SELFPAY | PROVIDERS: PCP Pediatrics; Visit Provider Nurse Practitioner Family | DX: R30.0 Dysuria (principal) | CPT/HCPCS: 87086 ==

== ENCOUNTER → 2022-03-03 14:59 | Outpatient (CLI) | payer MEDICARE, OTHER, SELFPAY ==
[2022-03-03 15:13] LABS: Appearance Urine UA CLEAR; Bilirubin Urine UA NEGATIVE (NEGATIVE); Color Urine UA YELLOW; Glucose Urine UA NEGATIVE (Negative); Ketones Urine UA NEGATIVE (NEGATIVE); Leukocyte Esterase Urine UA NEGATIVE (NEGATIVE); Nitrite Urine UA NEGATIVE (Negative); Occult Blood Urine UA TRACE-LYSED (Negative); Protein Urine UA NEGATIVE (Negative); Urobilinogen Urine UA 0.2 E.U./dL (0.2)
[2022-03-03 15:15] LABS: pH Urine UA 5.5 (4.5-8.0)
[2022-03-03 15:18] LABS: Bacteria Urine None Seen; RBC Urine 0-1/HPF (0-5/HPF); WBC Urine None Seen (0-5/HPF)
[2022-03-03 15:19] LABS: Culture Indicated Urine Cult Not Indicated
== END ==
PROVIDERS: PCP Pediatrics; Referring Provider Pediatrics; Visit Provider Pediatrics
DX: R30.0 Dysuria (principal)
CPT/HCPCS: 81001

== ENCOUNTER → 2022-03-17 11:26 | Outpatient (CLI) | payer MEDICARE, OTHER, SELFPAY ==
[2022-03-17 13:16] LABS: Appearance Urine UA CLEAR; Bilirubin Urine UA NEGATIVE (NEGATIVE); Color Urine UA YELLOW; Glucose Urine UA NEGATIVE (Negative); Ketones Urine UA NEGATIVE (NEGATIVE); Leukocyte Esterase Urine UA TRACE (NEGATIVE); Nitrite Urine UA NEGATIVE (Negative); Occult Blood Urine UA TRACE-INTACT (Negative); Protein Urine UA NEGATIVE (Negative); Specific Gravity Urine UA <=1.005 (1.000-1.035); Urobilinogen Urine UA 0.2 E.U./dL (0.2)
[2022-03-17 13:22] LABS: pH Urine UA 5.5 (4.5-8.0)
[2022-03-17 13:24] LABS: Bacteria Urine None Seen; Culture Indicated Urine Specimen Cultured; RBC Urine 0-1/HPF (0-5/HPF); WBC Urine 1-5/HPF (0-5/HPF)
== END ==
PROVIDERS: PCP Family Medicine; Referring Provider Family Medicine; Visit Provider Family Medicine
DX: R30.0 Dysuria (principal)
CPT/HCPCS: 81001; 87086

== ENCOUNTER → 2022-04-06 08:58 | Outpatient (CLI) | payer MEDICARE, OTHER, SELFPAY ==
[2022-04-06 10:22] LABS: Blood Urea Nitrogen 14 mg/dL (7-17); Calcium 9.5 mg/dL (8.4-10.2); Carbon Dioxide 28 mmol/L (22-32); Chloride 98 mmol/L (98-107); Cholesterol 269 mg/dL (140-199); Estimated Glomerular Filt Rate > 60 mL/min (>60); Glucose 93 mg/dL (80-110); HDL Cholesterol 64 mg/dL (40-60); HEMOLYSIS < 15 (0-50); LDL Cholesterol Calculated 172 mg/dL (<100); Potassium 4.9 mmol/L (3.4-5.1); Sodium 134 mmol/L (137-145); Triglycerides 166 mg/dL (35-150)
== END ==
PROVIDERS: PCP Family Medicine; Referring Provider Pediatrics; Visit Provider Pediatrics
DX: E78.2 Mixed hyperlipidemia (principal); E87.1 Hypo-osmolality and hyponatremia; H81.09 Meniere's disease, unspecified ear
CPT/HCPCS: 36415; 80048; 80061

== ENCOUNTER → 2022-04-28 08:17 | Outpatient (CLI) | payer MEDICARE, OTHER, SELFPAY ==
[2022-04-28 10:11] LABS: Alanine Aminotransferase 19 IU/L (<35); Albumin 4.1 g/dL (3.5-5.0); Albumin Globulin Ratio 1.7 (1.0-2.8); Alkaline Phosphatase 53 U/L (38-126); Aspartate Aminotransferase 22 IU/L (14-36); Bilirubin Total 0.5 mg/dL (0.2-1.3); Bilirubin Unconjugated 0.5 mg/dL (0.0-1.1); Globulin 2.4 g/dL (1.7-4.1); HEMOLYSIS < 15 (0-50); Total Protein 6.5 g/dL (6.3-8.2)
[2022-05-01 04:42] LABS: Immunoglobulin E 55 IU/mL (6-495)
== END ==
PROVIDERS: PCP Family Medicine; Referring Provider Internal Medicine; Visit Provider Internal Medicine
DX: L29.8 Other pruritus (principal); D47.3 Essential (hemorrhagic) thrombocythemia
CPT/HCPCS: 36415; 80076; 82785

== ENCOUNTER → 2022-06-04 10:54 | Outpatient (CLI) | payer MEDICARE, OTHER, SELFPAY ==
--- NOTE | 2022-06-04 10:55 | DI.MG.S_ITS ---
BILATERAL DIGITAL SCREENING MAMMOGRAM 3D/2D WITH CAD: 06/04/2022 CLINICAL: Routine screening. Family history of breast cancer. Comparison is made to exams dated: 06/03/2021 mammogram, 05/27/2019 mammogram, and 06/02/2020 mammogram - [facility]. Both breasts are heterogeneously dense, which may obscure small masses (category c / 51-75% glandular tissue). Current study was also evaluated with a Computer Aided Detection (CAD) system. There are benign calcifications in the left breast. No significant masses, calcifications, or other findings are seen in either breast. There has been no significant interval change. IMPRESSION: BENIGN There is no mammographic evidence of malignancy. A 1 year screening mammogram is recommended. Based on the Tyrer Cuzick model (a risk assessment model) the patient's lifetime risk is 9.2% and her 10 year risk is 8.3%. According to the ACR, ACS, and NCCN guidelines, an annual breast MRI exam along with mammogram is recommended if the patient's lifetime risk is 20% or greater. This exam was interpreted at Station ID: [id number]. NOTE: For mammograms, a report in lay terms will be sent to the patient. Approximately 15% of breast malignancies will not be visualized mammographically. In the management of a palpable breast mass, a negative mammogram must not discourage biopsy of a clinically suspicious lesion. Electronically Signed By: Alcides reynolds/bartolo:06/06/2022 02:16:32 letter sent: Normal Exam ACR BI-RADS Category 2: Benign Finding(s) 3342F
== END ==
PROVIDERS: PCP Family Medicine; Referring Provider Family Medicine; Visit Provider Family Medicine
DX: Z12.31 Encounter for screening mammogram for malignant neoplasm of breast (principal); Z80.3 Family history of malignant neoplasm of breast
CPT/HCPCS: 77063; 77067

== ENCOUNTER → 2022-07-12 12:04 | Outpatient (CLI) | payer MEDICARE, OTHER, SELFPAY ==
--- NOTE | 2022-07-12 12:08 | DI.RAD.S_ITS ---
PROCEDURE: XR LUMBAR SPINE MIN 4V INDICATIONS: Low back pain TECHNIQUE: 5 views of the lumbar spine were acquired, including bilateral oblique views. COMPARISON: [facility], MR, MR LUMBAR SPINE WO CON, 08/26/2021, 16:57. FINDINGS: Bones: 5 nonrib-bearing vertebrae are present. Very mild dextro centered at T12. No vertebral body compression fractures. No suspicious bony lesions. Soft tissues: Overlying bowel gas pattern is normal. No suspicious soft tissue calcifications. Oblique images: No pars defects. IMPRESSION: No evidence acute bony abnormality of the lumbar spine. Dictated by: Sukhjinder Bryan M.D. on 07/12/2022 at 15:37 Approved by: Sukhjinder Bryan M.D. on 07/12/2022 at 15:38
== END ==
PROVIDERS: PCP Family Medicine; Referring Provider Anesthesiology; Visit Provider Anesthesiology
DX: M54.17 Radiculopathy, lumbosacral region (principal); M54.41 Lumbago with sciatica, right side; G89.29 Other chronic pain
CPT/HCPCS: 72110; 99204; 99214

== ENCOUNTER → 2022-07-20 10:27 | Outpatient (CLI) | payer MEDICARE, OTHER, SELFPAY | PROVIDERS: PCP Family Medicine; Referring Provider Family Medicine; Visit Provider Family Medicine | DX: Z13.820 Encounter for screening for osteoporosis; M85.851 Other specified disorders of bone density and structure, right thigh; Z78.0 Asymptomatic menopausal state; M06.9 Rheumatoid arthritis, unspecified; H81.09 Meniere's disease, unspecified ear; D47.3 Essential (hemorrhagic) thrombocythemia; E78.5 Hyperlipidemia, unspecified; R30.0 Dysuria; Z92.23 Personal history of estrogen therapy; Z90.710 Acquired absence of both cervix and uterus | CPT/HCPCS: 77080 ==

== ENCOUNTER 2022-07-21 15:30 | Outpatient (CLI) | payer MEDICARE, OTHER, SELFPAY ==
--- NOTE | 2022-07-21 | DI.RAD.S_ITS ---
PROCEDURE: PAIN L INTERLAMINAR/CAUDAL INJ INDICATIONS: L4-5 ILESI - right directed COMPARISON: [facility], CR, XR LUMBAR SPINE MIN 4V, 07/12/2022, 12:22. FINDINGS: Fluoroscopic spot filming was performed to verify placement of spinal needles at the L4-5 level(s), as labeled on the films. Appropriate location(s) of the needle tip(s) was confirmed by injection of iodinated contrast. IMPRESSION: Spinal needle tip seen at the L4-5 level. Approved by: Raffy Miller M.D. on 07/22/2022 at 14:54
[2022-07-21 15:40] VITALS: BP 154/73; PULSE 70; RESP 20; TEMP 36.4; O2SAT 99
[2022-07-21 16:00] VITALS: BP 178/73; PULSE 71; RESP 18; O2SAT 100
[2022-07-21] MEDS: IOPAMIDOL 15 ML VIAL 3 ML INJ (16:04)
[2022-07-21 16:05] VITALS: BP 176/72; PULSE 65; RESP 15; O2SAT 100
[2022-07-21] MEDS: BUPIVACAINE 0.25% (PF) VIAL 5 ML INJ (16:05)
[2022-07-21 16:10] VITALS: BP 176/78; PULSE 64; RESP 14; O2SAT 100
[2022-07-21 16:15] VITALS: BP 185/77; PULSE 71; RESP 18; O2SAT 99
[2022-07-21 16:20] VITALS: BP 155/70; PULSE 63; RESP 16; O2SAT 99
--- NOTE | 2022-07-21 16:31 | P.PCN_ITS ---
Date/Time/Diagnoses Date of procedure: 07/21/22 Time of procedure: 16:00 Procedure Notes Physician: Jarod Reddy Total Fluoroscopy time (seconds): 16 Total sedation minutes: 0 Procedure in detail & Post-procedure care: L4-5 Interlaminar Epidural Steroid Injection Indications: Christina is referred by Dr. Prado for treatment of lumbar rad iculopathy with low back and leg pain. Preoperative diagnosis: Right lumbar radiculopathy Postoperative diagnosis: Same Focused Examination: Ax3 Mood and affect are normal Vital Signs: VSS ASA: 2 Consent: Following review of allergies and potential side effects/complications, including, but not necessarily limited to, infection, allergic reaction, local tissue breakdown, stroke, temporary or permanent nerve injury, paralysis, and possible , the patient indicated that they understood and agreed to proceed.? An informed consent document was signed by the patient, witnessed by a nurse and placed in the patient's chart.? Additionally, other treatment options including medications and physical therapy were reviewed with the patient. All questions were answered. Site was then marked. Anesthesia: Local Position: Prone Monitoring: NIBP, Pulse oximetry, 3 lead EKG Needle used: 18 G 3.5? Tuohy Contrast: Isovue 300M Injectate: Depo-Medrol 80 mg with 0.25% Bupivacaine 1 mL Technique: The skin was prepped with chloraprep and then draped in a sterile fashion. Time out was performed as per protocol. Oxygen applied via NC. Skin and subcutaneous structures of the needle entry site was then infiltrated with 3 mL of lidocaine 1%. Under AP, lateral and contralateral oblique fluoroscopic control, the Tuohy needle was guided into the L4-5 epidural space. The space was accessed with loss of resistance technique. Isovue 300M was then injected and the spread was consistent with the epidural space. There was no evidence for intravascular or intrathecal uptake. After negative aspiration, the above- mentioned injectate was then slowly administered and the needle withdrawn. The patient expressed no unusual discomfort or paresthesias during the injection. Band-Aids applied to injection sites. EBL: less than 1 ml Complications: None Post Procedure: Patient was taken to the recovery and monitored. The patient was provided a Pain Log to continue to record the patient's response to the target- specific procedure prior to the patient's follow-up visit with the referring physician. Patient was stable upon discharge. Detailed post procedure instructions were provided. Patient was asked to call in the event of worsening pain, fever, weakness, numbness or bladder or bowel incontinence.
== END 2022-07-21 16:29 | disposition home or self-care (01) ==
PROVIDERS: PCP Family Medicine; Referring Provider Anesthesiology; Visit Provider Anesthesiology
DX: M54.16 Radiculopathy, lumbar region (principal)
CPT/HCPCS: 62323; J1030; J1040; J2920; J3490

== ENCOUNTER → 2022-07-24 10:01 | Outpatient (CLI) | payer MEDICARE, OTHER, SELFPAY ==
[2022-07-24 10:52] LABS: Influenza A - CEPHEID Flu A NEGATIVE (NEGATIVE); Influenza B - CEPHEID Flu B NEGATIVE (NEGATIVE); Respiratory Syncytial Virus Negative (Negative)
[2022-07-24 10:59] LABS: COVID-19 CEPHEID 4-PLEX PCR Negative (Negative)
== END ==
PROVIDERS: PCP Family Medicine; Visit Provider Student in an Organized Health Care Education/Training Program
DX: R50.9 Fever, unspecified (principal)
CPT/HCPCS: 0241U; 87086

== ENCOUNTER → 2022-07-27 12:16 | Outpatient (CLI) | payer MEDICARE, OTHER, SELFPAY ==
[2022-07-27 14:04] LABS: Add Manual Diff / Slide Review NO; Basophils Absolute Auto 0 /uL (0-100); Basophils Percent Auto 0.6 % (0-2); Eosinophils Absolute Auto 0 /uL (0-450); Eosinophils Percent Auto 0.1 % (2-4); Hematocrit 38.2 % (36-46); Hemoglobin 13.2 g/dL (12.0-16.0); Lymphocytes Absolute Auto 900 /uL (1100-4500); Lymphocytes Percent Auto 12.3 % (25-40); Mean Corpuscular HGB Conc 34.5 % (30-36); Mean Corpuscular Hemoglobin 30.8 PG (26-34); Mean Corpuscular Volume 89.5 fL (80-100); Monocytes Absolute Auto 400 /uL (0-900); Monocytes Percent Auto 4.7 % (3-14); Neutrophils Absolute Auto 6100 /uL (1500-7000); Neutrophils Percent Auto 82.3 % (50-75); Platelet Count 275 X10^3/uL (150-400); Red Blood Cell Count 4.27 X10^6/uL (4.0-5.2); Red Cell Distribution Width 15.5 % (11.6-14.8); White Blood Cell Count 7.4 X10^3/uL (4.5-11.0)
[2022-07-27 14:20] LABS: Erythrocyte Sedimentation Rate 16 MM/HR (0-20)
[2022-07-27 14:35] LABS: Alanine Aminotransferase 43 IU/L (<35); Albumin 3.6 g/dL (3.5-5.0); Albumin Globulin Ratio 1.3 (1.0-2.8); Alkaline Phosphatase 127 U/L (38-126); Aspartate Aminotransferase 53 IU/L (14-36); BUN Creatinine Ratio 14.5 (6-22); Bilirubin Total 0.8 mg/dL (0.2-1.3); Blood Urea Nitrogen 9 mg/dL (7-17); C-Reactive Protein Quant 4.9 mg/dL (<1.0); Calcium 8.5 mg/dL (8.4-10.2); Carbon Dioxide 27 mmol/L (22-32); Chloride 93 mmol/L (98-107); Estimated Glomerular Filt Rate > 60 mL/min (>60); Globulin 2.7 g/dL (1.7-4.1); Glucose 94 mg/dL (80-110); HEMOLYSIS < 15 (0-50); Sodium 129 mmol/L (137-145); Total Protein 6.3 g/dL (6.3-8.2)
== END ==
PROVIDERS: PCP Family Medicine; Referring Provider Anesthesiology; Visit Provider Anesthesiology
DX: R30.0 Dysuria (principal)
CPT/HCPCS: 36415; 80053; 85025; 85651; 86140

== ENCOUNTER → 2022-08-10 10:17 | Outpatient (CLI) | payer MEDICARE, OTHER, SELFPAY | PROVIDERS: PCP Family Medicine; Visit Provider Nurse Practitioner Family | DX: L03.019 Cellulitis of unspecified finger (principal) | CPT/HCPCS: 87070; 87075; 87077; 87147; 87186; 87205 ==

== ENCOUNTER 2022-08-16 09:56 | Emergency (ER) | payer MEDICARE, OTHER, SELFPAY ==
[2022-08-16] VITALS (9 sets, daily range): BP systolic 125–172; BP diastolic 59–87; PULSE 70–101; RESP 14–42; TEMP 36.4; O2SAT 96–100; BMI 20.9
--- NOTE | 2022-08-16 10:05 | DI.RAD.S_ITS ---
PROCEDURE: XR CHEST 1V INDICATIONS: weak, shakey TECHNIQUE: One view of the chest was acquired. COMPARISON: [facility], , CHEST 2 VIEW, 05/18/2015, 14:52. FINDINGS: Surgical changes and devices: None. Lungs and pleura: Lungs are clear. No pleural effusions or pneumothorax. Mediastinum: Mediastinal contours appear normal. Heart size is normal. Bones and chest wall: No suspicious bony lesions. Overlying soft tissues appear unremarkable. IMPRESSION: No evidence acute pulmonary process. Dictated by: Sukhjinder Bryan M.D. on 08/16/2022 at 10:27 Approved by: Sukhjinder Bryan M.D. on 08/16/2022 at 10:27
[2022-08-16 10:26] LABS: Add Manual Diff / Slide Review NO; Basophils Absolute Auto 0 /uL (0-100); Basophils Percent Auto 0.6 % (0-2); Eosinophils Absolute Auto 200 /uL (0-450); Eosinophils Percent Auto 4.1 % (2-4); Hematocrit 38.8 % (36-46); Hemoglobin 13.2 g/dL (12.0-16.0); Lymphocytes Absolute Auto 2000 /uL (1100-4500); Lymphocytes Percent Auto 35.4 % (25-40); Mean Corpuscular Hemoglobin 30.7 PG (26-34); Mean Corpuscular Volume 90.4 fL (80-100); Monocytes Absolute Auto 500 /uL (0-900); Monocytes Percent Auto 9.5 % (3-14); Neutrophils Absolute Auto 2800 /uL (1500-7000); Neutrophils Percent Auto 50.4 % (50-75); Platelet Count 524 X10^3/uL (150-400); Red Blood Cell Count 4.29 X10^6/uL (4.0-5.2); Red Cell Distribution Width 17.2 % (11.6-14.8); White Blood Cell Count 5.6 X10^3/uL (4.5-11.0)
[2022-08-16 10:40] LABS: Alanine Aminotransferase 37 IU/L (<35); Albumin 4.3 g/dL (3.5-5.0); Albumin Globulin Ratio 1.4 (1.0-2.8); Alkaline Phosphatase 169 U/L (38-126); Aspartate Aminotransferase 38 IU/L (14-36); BUN Creatinine Ratio 12.5 (6-22); Bilirubin Total 0.5 mg/dL (0.2-1.3); Blood Urea Nitrogen 11 mg/dL (7-17); Calcium 8.9 mg/dL (8.4-10.2); Carbon Dioxide 24 mmol/L (22-32); Chloride 96 mmol/L (98-107); Creatine Kinase 94 U/L (30-135); Estimated Glomerular Filt Rate > 60 mL/min (>60); Globulin 3.1 g/dL (1.7-4.1); Glucose 79 mg/dL (80-110); HEMOLYSIS < 15 (0-50); Lactate (Lactic Acid) 1.3 mmol/L (0.7-2.1); Lipase 96 U/L (23-300); Potassium 3.9 mmol/L (3.4-5.1); Sodium 132 mmol/L (137-145); Total Protein 7.4 g/dL (6.3-8.2)
--- NOTE | 2022-08-16 10:45 | ED_ITS ---
HPI - Weakness General Chief complaint: Weakness Stated complaint: shaking/fuzzy headed/Low BP/can't walk unaided Time Seen by Provider: 08/16/22 10:04 Source: patient Mode of arrival: Ambulatory History of Present Illness HPI Narrative: 72-year-old female nonsmoker with history of lumbar radiculopathy, thrombocytopenia, insomnia, hyponatremia, leg cramps presents with her significant other and a chief complaint of feeling shaky and weak over the course of the night. She denies any recent trauma or injury. She is had no fever or chills and denies nausea, vomiting or diarrhea. She denies chest pain or shortness of breath. She has no abdominal pain and denies dysuria, frequency or urgency. She states that she took her blood pressure at home and saw that it was 50. Initially she denies any recent medication or dietary change but does state that she had been on amitriptyline for about a week and decided it was not working for her so last night was the 1st night she did not take it. She denies blurred vision or trouble with speech. She is had no runny nose, sore throat or cough Related Data Home Medications Medication Instructions Recorded Confirmed cetirizine 10 mg tablet 10 mg PO PRN PRN Allergy Symptoms 04/27/12 08/10/22 ##0 multivitamin 1 tab PO DAILY 08/30/21 08/10/22 naproxen sodium 220 mg tablet 220 mg PO BID 08/30/21 08/10/22 (Aleve) calcium carbonate [Calcium 600] 1,200 mg PO DAILY 01/06/22 08/10/22 cholecalciferol (vitamin D3) 50 50 mcg PO DAILY 01/06/22 08/10/22 mcg (2,000 unit) capsule aspirin 81 mg capsule 81 mg PO DAILY 06/30/22 08/10/22 omeprazole magnesium 20 mg 40 mg PO DAILY GERD 07/12/22 08/10/22 tablet,delayed release (Prilosec OTC) sertraline 50 mg tablet 50 mg PO DAILY 07/12/22 08/10/22 Previous Rx's Medication Instructions Recorded furosemide 20 mg tablet 20 mg PO DAILY #90 tabs 05/10/22 atorvastatin 20 mg tablet 20 mg PO BEDTIME #90 tabs 06/28/22 gabapentin 100 mg capsule See Rx Instructions .Route 06/28/22 .COMPLEX #270 caps pantoprazole 40 mg tablet,delayed 40 mg PO DAILY #30 tabs 06/28/22 release (Protonix) ondansetron 4 mg disintegrating 4 mg PO Q6-8H PRN nausea and 07/05/22 tablet vomiting #20 tabs diazepam 2 mg tablet 2 mg PO Q4-6H PRN vertigo per 07/11/22 records #20 tabs hydroxyurea 500 mg capsule 500 mg PO DAILY essential 07/25/22 thrombocytosis #30 caps potassium chloride 10 mEq 10 meq PO DAILY #30 caps 07/25/22 capsule,extended release ropinirole 0.25 mg tablet 0.25 mg PO BEDTIME #30 tabs 08/03/22 zolpidem 5 mg tablet 5 mg PO BEDTIME PRN insomnia #30 08/03/22 tabs amitriptyline 50 mg tablet 50 mg PO BEDTIME #30 tabs 08/06/22 gabapentin 600 mg tablet 600 mg PO .COMPLEX #60 tabs 08/06/22 sulfamethoxazole 800 1 tab PO BID 10 days #20 tabs 08/12/22 mg-trimethoprim 160 mg tablet (Bactrim DS) Allergies Allergy/AdvReac Type Severity Reaction Status Date / Time cephalexin Allergy Intermediate Rash Verified 08/16/22 09:59 sertraline [From Zoloft] Allergy Intermediate Rash Verified 08/16/22 09:59 amoxicillin [AMOXICILLIN] Allergy Mild Verified 08/16/22 09:59 azithromycin [AZITHROMYCIN] Allergy Mild Verified 08/16/22 09:59 clavulanic acid Allergy Mild Verified 08/16/22 09:59 [CLAVULANIC ACID] codeine [CODEINE] Allergy Mild Verified 08/16/22 09:59 erythromycin base Allergy Mild Verified 08/16/22 09:59 [ERYTHROMYCIN BASE] Penicillins [PENICILLINS] Allergy Mild Verified 08/16/22 09:59 Review of Systems Review of Systems Narrative: GENERAL: See HPI HEENT: Denies sinus pain, ear pain, sore throat, difficulty swallowing, dizziness. RESPIRATORY: Denies dyspnea, cough, wheezing, hemoptysis, sputum. CARDIOVASCULAR: Denies chest pain, palpitations, orthopnea, edema, GASTROINTESTINAL: Denies nausea, vomiting, abdominal pain, diarrhea, constipation, melena. : Denies dysuria, frequency, incontinence, hematuria, urinary retention. MUSCULOSKELETAL: See HPI SKIN: Denies rash, skin lesions, or other NEUROLOGIC: See HPI PSYCHIATRIC: No concerning psychosocial issues. 12 point review of systems is negative except for those stated above Patient History Medical History (Updated 08/16/22 @ 12:44 by Oli Tristan DO) Allergic rhinitis Anxiety Cataract (2013) Chicken pox Concussion COVID Depressive disorder Diverticulosis Dizziness Essential thrombocythemia Finger fracture, left (2007) Foot pain (2009) Hayfever Hearing loss (2012) Hyperlipidemia (12/16/14) Hypertension Hyponatremia EDUAR-2 gene mutation Low back pain Measles Meniere's disease (12/16/14) Meniere's disease (1993) Radiculopathy, lumbosacral region Tinnitus (1993) Tubular adenoma of colon Vertigo (1993) Surgical History Anesthesia complication History of orthopedic surgery (2007) Status post hysterectomy (1986) Family History Father Colon cancer Brain tumor Pneumonia Mother Hypertension Stroke Sister Breast cancer Brother Alcoholism Alcoholic liver disease Social History household members: spouse Smoking Status: Never smoker alcohol intake: never substance use type: does not use Smoking Status: Never smoker alcohol intake frequency: holidays/special occasions only Substance Use Type: does not use Exam Narrative Exam Narrative: GENERAL: [72] year old patient appears stated age. Well-developed patient, in mild distress. HEAD: Atraumatic. Normocephalic. EYES: Pupils equal round and reactive. Extraocular motions intact. No scleral icterus. No injection or drainage. ENT: Nose without bleeding, purulent drainage. Throat without erythema, tonsillar hypertrophy or exudate. Airway patent. NECK: Trachea midline. Non tender CARDIOVASCULAR: Regular rate and rhythm without murmurs, gallops, or rubs. RESPIRATORY: Clear to auscultation. Breath sounds equal bilaterally. No wheezes, rales, or rhonchi. GASTROINTESTINAL: Abdomen soft, non-tender, nondistended. EXTREMITIES: No edema or joint tenderness. BACK: Nontender without deformity or crepitance. No flank tenderness. NEURO: AOx3. Cranial nerves 2-12 grossly intact SKIN: No rash or erythema of visible areas Initial Vital Signs Initial Vital Signs: Vital Signs Temperature 97.6 F 08/16/22 09:58 Pulse Rate 92 H 08/16/22 09:58 Respiratory Rate 18 08/16/22 09:58 Blood Pressure 172/81 H 08/16/22 09:58 Pulse Oximetry 97 08/16/22 09:58 Oxygen Delivery Method 08/16/22 09:58 Course Orders Ordered: Discontinued Medications Sodium Chloride (Normal Saline 0.9%) 1,000 mls @ 150 mls/hr IV CONT RUDY Last Infusion: 08/16/22 12:32 Dose: 0 mls/hr Documented By: Admin: 08/16/22 11:40 Dose: 1,000 mls/hr Documented By: FARNAZ Vital Signs Vital signs: Vital Signs - 8 hr 08/16/22 09:58 08/16/22 10:03 08/16/22 10:03 Temperature 97.6 F Pulse Rate 92 H 101 H Respiratory Rate 18 Blood Pressure 172/81 H 172/81 H Pulse Oximetry 97 98 Oxygen Delivery Method Room Air 08/16/22 10:10 08/16/22 10:10 08/16/22 10:30 Temperature Pulse Rate 83 Respiratory Rate 22 Blood Pressure 168/75 H 141/66 H Pulse Oximetry 99 Oxygen Delivery Method 08/16/22 10:30 08/16/22 11:00 08/16/22 11:00 Temperature Pulse Rate 76 82 Respiratory Rate 42 H 26 H Blood Pressure 140/87 Pulse Oximetry 96 98 Oxygen Delivery Method 08/16/22 11:30 08/16/22 11:30 08/16/22 12:00 Temperature Pulse Rate 71 Respiratory Rate 18 Blood Pressure 137/64 125/59 L Pulse Oximetry 98 Oxygen Delivery Method 08/16/22 12:00 08/16/22 12:22 08/16/22 12:22 Temperature Pulse Rate 71 76 Respiratory Rate 22 16 Blood Pressure 164/70 H Pulse Oximetry 96 100 Oxygen Delivery Method 08/16/22 12:30 08/16/22 12:30 Temperature Pulse Rate 70 Respiratory Rate 14 Blood Pressure 150/67 H Pulse Oximetry 100 Oxygen Delivery Method MDM - Weakness Lab Data 08/16/22 10:10 08/16/22 10:10 Labs: Lab Results 08/16/22 08/16/22 08/16/22 Range/Units 10:10 10:10 10:10 WBC 5.6 (4.5-11.0) X10^3/uL RBC 4.29 (4.0-5.2) X10^6/uL Hgb 13.2 (12.0-16.0) g/dL Hct 38.8 (36-46) % MCV 90.4 (80-100) fL MCH 30.7 (26-34) PG MCHC 34.0 (30-36) % RDW 17.2 H (11.6-14.8) % Plt Count 524 H (150-400) X10^3/uL Neut % (Auto) 50.4 (50-75) % Lymph % (Auto) 35.4 (25-40) % [place] % (Auto) 9.5 (3-14) % Eos % (Auto) 4.1 H (2-4) % Baso % (Auto) 0.6 (0-2) % Neut # (Auto) 2800 (1936-7263) /uL Lymph # (Auto) 2000 (7366-1646) /uL [place] # (Auto) 500 (0-900) /uL Eos # (Auto) 200 (0-450) /uL Baso # (Auto) 0 (0-100) /uL Sodium 132 L (137-145) mmol/L Potassium 3.9 (3.4-5.1) mmol/L Chloride 96 L (98-107) mmol/L Carbon Dioxide 24 (22-32) mmol/L BUN 11 (7-17) mg/dL Creatinine 0.88 (0.52-1.04) mg/dL Estimated GFR > 60 (>60) mL/min BUN/Creatinine Ratio 12.5 (6-22) Glucose 79 L (80-110) mg/dL Lactate 1.3 (0.7-2.1) mmol/L Calcium 8.9 (8.4-10.2) mg/dL Total Bilirubin 0.5 (0.2-1.3) mg/dL AST 38 H (14-36) IU/L ALT 37 H (<35) IU/L Alkaline Phosphatase 169 H (38-126) U/L Total Creatine Kinase 94 (30-135) U/L CK-MB (CK-2) TNP CK-MB (CK-2) Rel Index TNP Troponin I < 0.012 (0.01-0.034) ng/mL NT-Pro-B Natriuret Pep 87 (<125) pg/mL Total Protein 7.4 (6.3-8.2) g/dL Albumin 4.3 (3.5-5.0) g/dL Globulin 3.1 (1.7-4.1) g/dL Albumin/Globulin Ratio 1.4 (1.0-2.8) Lipase 96 (23-300) U/L Procalcitonin 0.04 (<0.5) ng/mL Urine Dip Bedside Urine Glucose Negative Bedside Urine Bilirubin - Negative Bedside Urine Ketone - Negative Urine Specific [place] 1.010 Bedside Urine Occult Blood - Negative Bedside Urine pH 7.0 Bedside Urine Protein - Negative Bedside Urine Urobilinogen - Negative Bedside Urine Nitrite - Negative Bedside Urine Leukocytes - Negative Esterase ECG Data Interpretation: [1013] EKG is normal sinus rhythm rate [80] and free of any signs of ischemia or ectopy. No ST segmental elevation or depression. No T wave inversions MDM Narrative Medical decision making narrative: CC: 72-year-old female feeling shaky and weak since last night. Complicating co-morbidities: Age, thrombocytopenia, prior electrolyte abnormalities Data collected from: Patient Medical records reviewed: Multiple prior notes valuable for evaluation Differential considered, but not limited to: Hyponatremia, other electrolyte abnormality, discontinuation of medications, urine infection versus other Exam documented above, pertinent findings include: No significant abnormal findings Lab Test results independently reviewed as above. Pertinent findings: Independently reviewed EKG as above Imaging studies independently reviewed: NAP Treatments: Patient be feeling better after fluids Re-evaluations: See above Discussion: Patient felt shaky and weak and found herself to have low blood pressure this morning after standing. It resolved before she got here. No ongoing symptoms. No focal findings. No evidence of infection or electrolyte abnormality. Feeling much better after fluids as stated. No significant fi ndings on EKG. There is some question about whether not her recent tapering cessation of amitriptyline maybe playing a role, but in the end she is a reassuring history, physical exam and workup under the appropriate for discharge Disposition: see below, along with detailed discharge instructions that have been reviewed with patient as well as indications for ED re-evaluation and additional outpatient follow up Discharge Plan Departure Patient Disposition: Home Clinical Impression: Orthostatic hypotension Instructions: DI for Hypotension Activity Restrictions/Additional Instructions: *You have been diagnosed with [dizziness and shakiness likely due to a combination of orthostatic hypotension and possibly the cessation of your amitriptyline. Otherwise, as stated your labs, urine, x-ray as well as remainder of history and physical exam are very reassuring] *What to do: *Please continue to take your regular medications as directed. *Please follow up with your primary care provider in 2-3 days, call for an appointment. Let them know you were seen in the Emergency Department and that we ask that you be seen in follow up. We will electronically transmit a record of today's note if your PCP is in our system *Return to Emergency Department if you should have any new, worsening or concerning symptoms, such as [fever greater than 101 F, shaking chills, worsening pain, persistent vomiting or other bothersome symptoms] Prescriptions: No Action cetirizine 10 MG tablet 10 mg PO PRN PRN (Reason: Allergy Symptoms) Qty: 0 furosemide 20 mg tablet 20 mg PO DAILY Qty: 90 1RF atorvastatin 20 mg tablet 20 mg PO BEDTIME Qty: 90 1RF gabapentin 100 mg capsule See Rx Instructions .ROUTE .COMPLEX Qty: 270 0RF Hold Instructions: Dose change Dose Instruction: TAKE 1-3 CAPSULES BY MOUTH AT BEDTIME AT BEDTIME NEEDED FOR ITCHING Rx Instructions: TAKE 1-3 CAPSULES BY MOUTH AT BEDTIME AT BEDTIME NEEDED FOR ITCHING ondansetron 4 mg tablet,disintegrating 4 mg PO Q6-8H PRN (Reason: nausea and vomiting) Qty: 20 3RF diazepam 2 mg tablet 2 mg PO Q4-6H PRN (Reason: vertigo per records) Qty: 20 0RF Rx Instructions: Call if/when refill needed potassium chloride 10 mEq capsule, extended release 10 meq PO DAILY Qty: 30 3RF Rx Instructions: Take one each morning with furosemide. Try to limit meclizine, if possible, while on potassium supplement to decrease interaction potential. gabapentin 600 mg tablet 600 mg PO .COMPLEX Qty: 60 0RF Rx Instructions: 300 morning, 300 noon, 600 night; amitriptyline 50 mg tablet 50 mg PO BEDTIME Qty: 30 0RF sulfamethoxazole-trimethoprim [Bactrim DS] 800-160 mg tablet 1 tab PO BID 10 Days Qty: 20 0RF calcium carbonate [Calcium 600] 1,200 mg PO DAILY cholecalciferol (vitamin D3) 50 mcg (2,000 unit) capsule 50 mcg PO DAILY ropinirole 0.25 mg tablet 0.25 mg PO BEDTIME Qty: 30 0RF zolpidem 5 mg tablet 5 mg PO BEDTIME PRN (Reason: insomnia) Qty: 30 0RF pantoprazole [Protonix] 40 mg tablet,delayed release (DR/EC) 40 mg PO DAILY Qty: 30 2RF multivitamin Tablet 1 tab PO DAILY naproxen sodium [Aleve] 220 mg Tablet 220 mg PO BID aspirin 81 mg Capsule 81 mg PO DAILY hydroxyurea 500 mg Capsule 500 mg PO DAILY Qty: 30 2RF sertraline 50 mg tablet 50 mg PO DAILY omeprazole magnesium [Prilosec OTC] 20 mg tablet,delayed release (DR/EC) 40 mg PO DAILY Label Comments: Restarted . Referrals: Kristyn Prado DO [Primary Care Provider] - Stand Alone Forms: Patient Portal/API
[2022-08-16 10:51] LABS: NT-proBNP (BNP-Adult 18+) 87 pg/mL (<125); Troponin I < 0.012 ng/mL (0.01-0.034)
[2022-08-16 10:55] LABS: Procalcitonin 0.04 ng/mL (<0.5)
[2022-08-16] MEDS: SODIUM CHLORIDE 0.9% 1,000 ML 1000 ML IV (11:40)
== END 2022-08-16 13:04 | disposition home or self-care (01) ==
PROVIDERS: Emergency Provider Emergency Medicine; PCP Family Medicine
DX: I95.1 Orthostatic hypotension (principal); Z79.899 Other long term (current) drug therapy
CPT/HCPCS: 36415; 71045; 80053; 81003; 82550; 83605; 83690; 83880; 84145; 84484; 85025; 87040; 93005; 96360; 99284

== ENCOUNTER 2022-09-02 10:23 | Day surgery (SDC) | payer MEDICARE, OTHER, SELFPAY ==
--- NOTE | 2022-09-02 | PATH_ITS ---
[facility] Accession Number: [id number] No. of containers..04 Tissue . 01 Material submitted: . PART A: gastrointestinal site - GASTRIC POLYPS PART B: pyloric antrum - PYLORIC BIOPSY PART C: esophagus, E-G Junction - GE JUNCTION PART D: esophagus - ESOPHAGUS BIOPSY . 01 Clinical history: . B: RULE OUT H.PYLORI . 01 Diagnosis: A. Stomach, Polyps, Biopsies: Gastric hyperplastic polyps. No evidence of Helicobacter organisms on H/E stain. Negative for intestinal metaplasia. Negative for dysplasia and malignancy. . B. Stomach, Pyloric, Biopsy: Antral type mucosa with mild chronic inflammation. No evidence of Helicobacter organisms on H/E stain. Negative for intestinal metaplasia. Negative for dysplasia and malignancy. . C. Gastroesophageal Junction, Biopsy: Squamocolumnar junctional mucosa with no diagnostic abnormality. Negative for intestinal metaplasia. Negative for dysplasia and malignancy. . D. Esophagus, Biopsy: Squamous mucosa with heterotopic sebaceous gland. Intraepithelial eosinophils are not increased. Negative for dysplasia and malignancy. [facility] 09/07/2022 1142 Local . 01 Electronically signed: . Shabnam Zelaya MD, Pathologist NPI- [id number] . 01 Gross description: . Part A: GASTRIC POLYPS: Received in formalin are multiple fragment(s) of bell, soft tissue measuring 2.0 x 0.4 x 0.1 cm in aggregate submitted entirely in 1 cassette(s) Part B: PYLORIC BIOPSY: Received in formalin is 1 fragment(s) of bell, soft tissue measuring 0.3 x 0.2 x 0.1 cm submitted entirely in 1 cassette(s) Part C: GE JUNCTION: Received in formalin is 1 fragment(s) of bell, soft tissue measuring 0.2 x 0.1 x 0.1 cm submitted entirely in 1 cassette(s) Part D: ESOPHAGUS BIOPSY: Received in formalin are 2 fragment(s) of bell, soft tissue measuring 0.3 x 0.2 x 0.1 cm to 0.3 x 0.2 x 0.1 cm submitted entirely in 1 cassette(s) /CPE 09/03/2022 0749 Local . 01 Pathologist provided ICD-10: R10.13, K31.7 . 01 CPT . 309457, 044524, 994583, 328138 Specimen Comment: A courtesy copy of this report has been sent to [facility] Pathology Performed at: 01 [facility] Cytology [address], [place], [place] [id number] MD Alcides Billingsley MD Phone: [phone]
[2022-09-02] MEDS: LACTATED RINGERS 1,000 ML 42 ML IV (10:37)
[2022-09-02 10:55] VITALS: BP 158/76; PULSE 94; RESP 16; TEMP 36.9; O2SAT 99; BMI 20.5
--- NOTE | 2022-09-02 13:58 | PM.PREOP ---
Pre-operative Note Interval Note History & Physical reviewed/Exam performed by Physician: Yes Changes to H&P: No
[2022-09-02 14:35] VITALS: BP 137/64; PULSE 78; RESP 17; TEMP 36.6; O2SAT 96
[2022-09-02 14:39] VITALS: BP 117/58; PULSE 78; RESP 18; O2SAT 96
--- NOTE | 2022-09-02 14:39 | P.OP.EGD_ITS ---
Operative Date/Time/Diagnoses Date of procedure: 09/02/22 Pre-op diagnosis: Gastritis, epigastric pain Post-op diagnosis: same Procedure & Clinicians Study performed: EGD and biopsies Same procedure as scheduled: Yes Surgeon: Abbey Ramirez Procedure Notes Procedure in detail: Patient was taken to the endoscopy suite she was supine on the gurney. A time- out was performed. Conscious sedation with the help of anesthesiologist was induced. The EGD scope was advanced into the mouth and into the esophagus without much difficulty. The esophagus did have some small little white lesions that were photographed on the way out and biopsied. The scope was then advanced through to the stomach. There were some scattered small gastric polyps no large polyps. Several samples of the small polyps were biopsied and sent for pathology. As the scope was advanced towards the pylorus there appeared to be some possible irritation of the pyloric mucosa. The pyloric mucosa was also biopsied and sent for Helicobacter analysis. The scope was then introduced through the pyloric opening and into the duodenum. Photograph was obtained of the duodenum and it looked normal. The scope was then withdrawn and retroflexed to see the GE junction a photograph was obtained. I did not appreciate a hiatal hernia. The scope was then withdrawn again into the esophagus and a biopsy of the GE junction was obtained. Upon withdrawal as previously noted the lesions were photographed and biopsied. Otherwise the esophagus had relatively normal looking mucosa. The scope was then fully withdrawn. The patient tolerated the procedure well and went in good condition to the postoperative care unit. Findings: gastritis and other findings Specimen(s): other (1. Gastric polyps 2. Pyloric biopsy 3. GE junction 4. Esophageal biopsy) Complications: none
[2022-09-02 14:44] VITALS: BP 112/58; PULSE 76; RESP 14; TEMP 36.6; O2SAT 98
== END 2022-09-02 14:50 | disposition home or self-care (01) ==
PROVIDERS: PCP Family Medicine; Referring Provider Surgery; Visit Provider Surgery
PROC: 0DJ08ZZ Inspection of Upper Intestinal Tract, Via Natural or Artificial Opening Endoscopic (ICD-10-PCS; CPT 43235; principal; 2022-09-02 11:30)
DX: R10.13 Epigastric pain (principal); K31.7 Polyp of stomach and duodenum; K29.50 Unspecified chronic gastritis without bleeding
CPT/HCPCS: 43239; J2250

== ENCOUNTER → 2022-09-06 12:49 | Outpatient (CLI) | payer MEDICARE, OTHER, SELFPAY ==
[2022-09-06 13:53] LABS: Add Manual Diff / Slide Review NO; Basophils Absolute Auto 100 /uL (0-100); Basophils Percent Auto 1.5 % (0-2); Eosinophils Absolute Auto 100 /uL (0-450); Hematocrit 37.9 % (36-46); Hemoglobin 13.3 g/dL (12.0-16.0); Lymphocytes Absolute Auto 1400 /uL (1100-4500); Lymphocytes Percent Auto 21.9 % (25-40); Mean Corpuscular HGB Conc 35.1 % (30-36); Mean Corpuscular Hemoglobin 31.8 PG (26-34); Mean Corpuscular Volume 90.8 fL (80-100); Monocytes Absolute Auto 300 /uL (0-900); Monocytes Percent Auto 4.6 % (3-14); Neutrophils Absolute Auto 4600 /uL (1500-7000); Platelet Count 585 X10^3/uL (150-400); Red Blood Cell Count 4.17 X10^6/uL (4.0-5.2); Red Cell Distribution Width 15.7 % (11.6-14.8); White Blood Cell Count 6.5 X10^3/uL (4.5-11.0)
[2022-09-06 14:26] LABS: Alanine Aminotransferase 26 IU/L (<35); Albumin 4.5 g/dL (3.5-5.0); Albumin Globulin Ratio 1.6 (1.0-2.8); Alkaline Phosphatase 99 U/L (38-126); Aspartate Aminotransferase 37 IU/L (14-36); BUN Creatinine Ratio 17.6 (6-22); Bilirubin Total 0.7 mg/dL (0.2-1.3); Blood Urea Nitrogen 12 mg/dL (7-17); Carbon Dioxide 29 mmol/L (22-32); Chloride 95 mmol/L (98-107); Estimated Glomerular Filt Rate > 60 mL/min (>60); Globulin 2.8 g/dL (1.7-4.1); Glucose 118 mg/dL (80-110); HEMOLYSIS < 15 (0-50); Potassium 3.8 mmol/L (3.4-5.1); Sodium 133 mmol/L (137-145); Total Protein 7.3 g/dL (6.3-8.2)
[2022-09-06 16:42] LABS: Thyroid Stimulating Hormone 1.69 uIU/mL (0.47-4.68)
== END ==
PROVIDERS: Family Medicine; PCP Family Medicine; Referring Provider Surgery; Visit Provider Surgery
DX: D69.3 Immune thrombocytopenic purpura (principal); R20.9 Unspecified disturbances of skin sensation
CPT/HCPCS: 36415; 80053; 84443; 85025

== ENCOUNTER → 2022-09-07 13:41 | Outpatient (CLI) | payer MEDICARE, OTHER, SELFPAY ==
--- NOTE | 2022-09-07 13:42 | DI.RAD.S_ITS ---
PROCEDURE: FL BARIUM SWALLOW INDICATIONS: dysphagia, epigastric pain EGD on 09/02/22 COMPARISON: [facility], , BARIUM SWALLOW, 05/25/2015, 13:05. FINDINGS: Function: There is weakened esophageal peristalsis, without tertiary contractions. Trace elicited gastroesophageal reflux. There is normal transit of a calibrated barium tablet through the esophagus into the stomach. Morphology: Single contrast views show no esophageal strictures, extrinsic mass effects, or diverticula. Limited images of the stomach demonstrate normal appearance. IMPRESSION: 1. Mild esophageal dysmotility for age. 2. Trace gastroesophageal reflux. Dictated by: Maurice Goins M.D. on 09/07/2022 at 16:18 Approved by: Maurice Goins M.D. on 09/07/2022 at 16:20
--- NOTE | 2022-09-08 10:08 | P.CALLCOV_ITS ---
Call Coverage Note Note Date of Patient Contact: 09/08/22 Time of Patient Contact: 10:09 Narrative of Care Provided: I called Ms. Jacobo to discuss her swallow study results and pathology results. She is still having significant difficulty. She has other sources of chronic pain but this reflux/epigastric pain is continuing as well. She is starting to feel confused and frazzled because she is not able to sleep at night. She is tearful on the phone. These symptoms have really been causing her significant distress. She has to eat small amounts more frequently. She is keeping a journal of her intake and her symptoms to bring with her to the gastroenterologi st. We discussed that the lesions in the esophagus the heterotopic sebaceous glands are benign and usually considered asymptomatic and no further screening is required for those. However the swallow evaluation did show some esophageal dysmotility as well as some reflux. The antral biopsies showed chronic inflammation of the antrum. Therefore I have recommended that she continue Protonix once daily in the morning and in addition I added a famotidine 20 mg once in the evening. She is scheduled to see a [facility] in the [facility] office in [place]. I have spoken with their nurse coordinator and she will give her a call. If they have a cancellation or availability before her scheduled appointment on September 27, she will be seen sooner.
== END ==
PROVIDERS: PCP Family Medicine; Referring Provider Surgery; Visit Provider Surgery
DX: K22.4 Dyskinesia of esophagus (principal); R10.13 Epigastric pain
CPT/HCPCS: 74220

== ENCOUNTER → 2022-09-12 06:57 | Outpatient (CLI) | payer MEDICARE, OTHER, SELFPAY ==
[2022-09-12 07:39] LABS: Add Manual Diff / Slide Review NO; Basophils Absolute Auto 100 /uL (0-100); Basophils Percent Auto 2.1 % (0-2); Eosinophils Absolute Auto 200 /uL (0-450); Eosinophils Percent Auto 3.7 % (2-4); Hematocrit 37.3 % (36-46); Hemoglobin 12.8 g/dL (12.0-16.0); Lymphocytes Absolute Auto 1600 /uL (1100-4500); Lymphocytes Percent Auto 27.6 % (25-40); Mean Corpuscular HGB Conc 34.2 % (30-36); Mean Corpuscular Volume 90.6 fL (80-100); Monocytes Absolute Auto 300 /uL (0-900); Monocytes Percent Auto 5.4 % (3-14); Neutrophils Absolute Auto 3600 /uL (1500-7000); Neutrophils Percent Auto 61.2 % (50-75); Platelet Count 579 X10^3/uL (150-400); Red Blood Cell Count 4.12 X10^6/uL (4.0-5.2); Red Cell Distribution Width 15.8 % (11.6-14.8); White Blood Cell Count 5.9 X10^3/uL (4.5-11.0)
[2022-09-12 07:42] LABS: Alanine Aminotransferase 25 IU/L (<35); Albumin 4.1 g/dL (3.5-5.0); Albumin Globulin Ratio 1.5 (1.0-2.8); Alkaline Phosphatase 76 U/L (38-126); Aspartate Aminotransferase 32 IU/L (14-36); BUN Creatinine Ratio 15.4 (6-22); Bilirubin Total 0.7 mg/dL (0.2-1.3); Blood Urea Nitrogen 10 mg/dL (7-17); Calcium 8.8 mg/dL (8.4-10.2); Carbon Dioxide 30 mmol/L (22-32); Chloride 93 mmol/L (98-107); Estimated Glomerular Filt Rate > 60 mL/min (>60); Globulin 2.7 g/dL (1.7-4.1); Glucose 120 mg/dL (80-110); HEMOLYSIS < 15 (0-50); Potassium 3.6 mmol/L (3.4-5.1); Sodium 130 mmol/L (137-145); Total Protein 6.8 g/dL (6.3-8.2)
== END ==
PROVIDERS: PCP Family Medicine; Referring Provider Surgery; Visit Provider Surgery
DX: Z15.89 Genetic susceptibility to other disease (principal)
CPT/HCPCS: 36415; 80053; 85025

== ENCOUNTER → 2022-09-15 14:09 | Outpatient (CLI) | payer MEDICARE, OTHER, SELFPAY ==
--- NOTE | 2022-09-15 14:12 | DI.RAD.S_ITS ---
PROCEDURE: XR CERVICAL SPINE 4V OR 5V INDICATIONS: Bilateral neck pain TECHNIQUE: 5 views of the cervical spine acquired. COMPARISON: [facility], MR, MR CERVICAL SPINE WO [facility], 09/16/2020, 13:47. FINDINGS: Bones: No fractures or dislocations to the T1 level. Grade 1 anterolisthesis of C7 on T1 Mild degenerative disease at C5-C6. Bilateral facet arthropathy, most pronounced at C4-C5 and C5-C6 on the left. Oblique images demonstrate mild bony foraminal stenoses at C3-C4, C4-C5 and C6-C7 on the left. Soft tissues: No prevertebral soft tissue swelling. IMPRESSION: 1. Degenerative disc and facet disease in cervical spine. 2. Mild foraminal stenosis at C3-C4, C4-C5 and C6-C7 on the left. Dictated by: Louie Anne M.D. on 09/15/2022 at 15:28 Approved by: Louie Anne M.D. on 09/15/2022 at 15:32
== END ==
PROVIDERS: PCP Family Medicine; Referring Provider Anesthesiology; Visit Provider Anesthesiology
DX: M50.30 Other cervical disc degeneration, unspecified cervical region (principal); M48.02 Spinal stenosis, cervical region
CPT/HCPCS: 72050

== ENCOUNTER → 2022-09-30 13:34 | Outpatient (CLI) | payer MEDICARE, OTHER, SELFPAY ==
--- NOTE | 2022-09-30 | DI.US.S_ITS ---
PROCEDURE: US ABDOMEN LIMITED INDICATIONS: Epigastric pain Constipation, unspecified TECHNIQUE: Real-time focused scanning was performed of the abdomen, with image documentation. COMPARISON: [facility], , US ABDOMEN LIMITED, 06/17/2019, 14:44. FINDINGS: The liver is normal in size and demonstrates no focal lesions. The main portal vein demonstrates normal size and demonstrates normal appearing, hepatopetal flow. No findings of gallstones or sludge are seen. The gallbladder wall is not thickened, measuring 3 mm or less. No specific pericholecystic fluid is seen. The sonographic Bennett sign is negative. There is no biliary dilatation, the common bile duct measures 1-2 mm. No significant pancreatic abnormality is seen on these images. IMPRESSION: The gallbladder demonstrates a normal sonographic appearance. No biliary dilatation is seen. Dictated by: Harvey Williamson M.D. on 09/30/2022 at 13:53 Approved by: Harvey Williamson M.D. on 09/30/2022 at 13:54
== END ==
PROVIDERS: PCP Family Medicine; Referring Provider Internal Medicine Gastroenterology; Visit Provider Internal Medicine Gastroenterology
DX: R10.13 Epigastric pain (principal); K59.00 Constipation, unspecified; R63.4 Abnormal weight loss
CPT/HCPCS: 76705

== ENCOUNTER 2022-10-13 14:57 | Outpatient (CLI) | payer MEDICARE, OTHER, SELFPAY ==
--- NOTE | 2022-10-13 14:58 | DI.RAD.S_ITS ---
PROCEDURE: PAIN L/S TRANSFORAMINAL INJECT INDICATIONS: SPONDYLOSIS COMPARISON: [facility], MR, MR LUMBAR SPINE WO CON, 08/26/2021, 16:57. [facility], CR, XR LUMBAR SPINE MIN 4V, 07/12/2022, 12:22. FINDINGS: Fluoroscopic spot filming was performed to verify placement of spinal needles at the right L4-L5 level(s), as labeled on the films. Appropriate location(s) of the needle tip(s) was confirmed by injection of iodinated contrast. IMPRESSION: Fluoroscopy for pain management. Dictated by: Louie Anne M.D. on 10/13/2022 at 16:31 Approved by: Louie Anne M.D. on 10/13/2022 at 16:32
[2022-10-13 15:00] VITALS: BP 135/72; PULSE 70; RESP 16; TEMP 36.9; O2SAT 100
[2022-10-13 15:42] VITALS: BP 167/74; PULSE 72; RESP 11; O2SAT 100
[2022-10-13] MEDS: DEXAMETHASONE 10 MG/ML VIAL INJ (15:42)
[2022-10-13] MEDS: IOPAMIDOL 15 ML VIAL 3 ML INJ (15:43)
[2022-10-13 15:47] VITALS: BP 165/78; PULSE 72; RESP 11; O2SAT 100
[2022-10-13 15:52] VITALS: BP 147/63; PULSE 70; RESP 18; O2SAT 100
--- NOTE | 2022-10-13 17:03 | P.PCN_ITS ---
Date/Time/Diagnoses Date of procedure: 10/13/22 Time of procedure: 15:30 Procedure Notes Physician: Jarod Reddy Total Fluoroscopy time (seconds): 13 Total sedation minutes: 0 Procedure in detail & Post-procedure care: Right L4-5 Transforaminal Epidural Steroid Injection Indications: Christina is presenting for treatment of lumbar radiculopathy with low back and leg pain. Preoperative diagnosis: Right lumbar radiculopathy Postoperative diagnosis: Same Focused Examination: Ax3 Mood and affect are normal Vital Signs: VSS ASA: 2 Consent: Following review of allergies and potential side effects/complications, including, but not necessarily limited to, infection, allergic reaction, local tissue breakdown, stroke, temporary or permanent nerve injury, paralysis, and possible , the patient indicated that they understood and agreed to proceed.? An informed consent document was signed by the patient, witnessed by a nurse and placed in the patient's chart.? Additionally, other treatment options including medications and physical therapy were reviewed with the patient. All questions were answered. Site was then marked. Anesthesia: Local Position: Prone Monitoring: NIBP, Pulse oximetry, 3 lead EKG Needle used: 22G 3.5 inch spinal needle Contrast: Isovue 300M Injectate: 10 mg Dexamethasone mixed with 1% lidocaine 2ml Technique: The skin was prepped with chloraprep and draped in a sterile fashion. Time out was performed as per protocol. Oxygen applied via NC. Skin and subcutaneous structures of the needle entry site were infiltrated with 3mL of lidocaine 1%. Under fluoroscopic guidance, using an ipsilateral oblique view,?a 22 gauge 3.5 inch needle was advanced to the base of the L4?pedicle.? The needle was advanced to the superio-posterior aspect of the neural foramen under lateral view.? Oblique and AP views were rechecked. No paresthesias noted by the patient during needle placement. In AP view and utilizing real-time digital subtraction fluoroscopy, 1 ml contrast was slowly injected. Epidural spread was observed without evidence for intravascular nor intrathecal uptake. Contrast spread was seen craniocaudally. The above injectate was then administered, and the needle was subsequently withdrawn. Band-Aids applied to injection sites. EBL: less than 1 ml Complications: None Post Procedure: Patient was taken to the recovery and monitored. The patient was provided a Pain Log to continue to record the patient's response to the target- specific procedure prior to the patient's follow-up visit with the referring physician. Patient was stable upon discharge. Detailed post procedure instructions were provided. Patient was asked to call in the event of worsening pain, fever, weakness, numbness or bladder or bowel incontinence.
== END 2022-10-13 15:57 | disposition home or self-care (01) ==
PROVIDERS: PCP Family Medicine; Referring Provider Anesthesiology; Visit Provider Anesthesiology
DX: M54.16 Radiculopathy, lumbar region (principal)
CPT/HCPCS: 64483; J1100

== ENCOUNTER → 2022-10-17 11:08 | Outpatient (CLI) | payer MEDICARE, OTHER, SELFPAY ==
--- NOTE | 2022-10-17 11:09 | DI.MRI.S_ITS ---
PROCEDURE: MR CERVICAL SPINE WO CON INDICATIONS: Cervical radiculopathy TECHNIQUE: Noncontrast sagittal T1 spin echo and T2 fast spin echo, sagittal STIR, foraminal oblique sagittal T2 fast spin echo, and axial gradient echo or T2 fast spin echo through the cervical spine. COMPARISON: [facility], CR, XR CERVICAL SPINE 4V OR 5V, 09/15/2022, 14:08. FINDINGS: Image quality: Excellent. Alignment and Curvature: There is loss of normal cervical lordosis. 2 mm of retrolisthesis of C5 on C6. Bone Marrow: Marrow demonstrates normal overall signal. Mild reactive signal throughout the endplates of the cervical and upper thoracic spine. Spinal Cord: Visualized spinal cord has normal size and signal. No cerebellar tonsillar herniation. Paraspinous Soft Tissues: No paravertebral masses. Prevertebral soft tissues are normal in thickness. C2-C3: Mild disc desiccation. Mild facet and uncovertebral hypertrophy bilaterally. No significant canal nor foraminal stenosis. C3-C4: Mild disc desiccation and diffuse disc bulge. Mild facet and uncovertebral hypertrophy bilaterally. Mild canal stenosis. Moderate bilateral foraminal stenosis. C4-C5: Mild disc desiccation and diffuse disc bulge. Mild facet and uncovertebral hypertrophy bilaterally. Increased, moderate to severe canal stenosis. Mild bilateral foraminal stenosis. C5-C6: Moderate disc desiccation. Mild diffuse disc bulge with small superimposed central protrusion. Mild facet and uncovertebral hypertrophy bilaterally. Severe canal stenosis with mild cord flattening. Moderate bilateral foraminal stenosis. C6-C7: Moderate disc desiccation. Mild diffuse disc bulge with superimposed left posterolateral protrusion. Mild facet and uncovertebral hypertrophy bilaterally. Moderate to severe canal stenosis. Moderate right and severe left foraminal stenosis. Left C7 nerve root compression. C7-T1: Mild disc desiccation and diffuse disc bulge. Mild facet and uncovertebral hypertrophy bilaterally. Mild canal stenosis. Mild bilateral foraminal stenosis. No significant change. IMPRESSION: 1. Multilevel degenerative disc and facet disease, as well as uncovertebral hypertrophy. 2. Multilevel canal stenoses, worst at C5-C6 where there is mild cord flattening. 3. Multilevel foraminal stenoses, worst at C6-C7 where there is associated intraforaminal nerve root compression. Recommend correlation with clinical symptoms to ascertain relevance of this finding. Dictated by: uLis Atkinson M.D. on 10/17/2022 at 14:16 Transcribed by: MARCIO owens 10/17/2022 at 14:35 Approved by: Luis Atkinson M.D. on 10/17/2022 at 16:50
== END ==
PROVIDERS: PCP Family Medicine; Referring Provider Anesthesiology; Visit Provider Anesthesiology
DX: M50.11 Cervical disc disorder with radiculopathy, high cervical region; M48.02 Spinal stenosis, cervical region
CPT/HCPCS: 72141

== ENCOUNTER → 2022-10-26 15:16 | Outpatient (CLI) | payer MEDICARE, OTHER, SELFPAY ==
[2022-10-26 17:17] LABS: BUN Creatinine Ratio 19.7 (6-22); Blood Urea Nitrogen 15 mg/dL (7-17); Estimated Glomerular Filt Rate > 60 mL/min (>60)
== END ==
PROVIDERS: PCP Family Medicine; Referring Provider Internal Medicine Gastroenterology; Visit Provider Internal Medicine Gastroenterology
DX: R10.13 Epigastric pain (principal); R63.4 Abnormal weight loss; K59.00 Constipation, unspecified
CPT/HCPCS: 36415; 82565; 84520

== ENCOUNTER → 2022-10-28 11:01 | Outpatient (CLI) | payer MEDICARE, OTHER, SELFPAY ==
--- NOTE | 2022-10-28 | DI.CT.S_ITS ---
PROCEDURE: CT ABDOMEN PELVIS W CON INDICATIONS: Epigastric pain TECHNIQUE: After the administration of oral and intravenous contrast, axial sections were acquired from the lung bases to the pubic symphysis. Coronal and sagittal reformats were performed. For radiation dose reduction, the following was used: automated exposure control, adjustment of mA and/or kV according to patient size. COMPARISON:[facility], , ABDOMEN LIMITED, 09/30/2022, 13:48. FINDINGS: Image quality: Excellent. Lung bases: Unremarkable. Heart: No significant findings. ABDOMEN: Liver: Unremarkable. Gallbladder: Unremarkable. Biliary ducts: Unremarkable. Pancreas: Unremarkable. Spleen: Unremarkable. Adrenal Glands: Unremarkable. Kidneys and Ureters: Unremarkable. Stomach and Bowel: Small bowel loops and colon are unremarkable. At the gastric cardia margin a hiatal hernia is not seen but then within the gastric cardia itself there is asymmetric prominence of the gastric wall measuring up to 1.7 cm. No adjacent adenopathy is seen within the periesophageal inferior mediastinum or at the gastrohepatic ligament. Dilatation of the esophagus is not associated. Peritoneum: No abnormal intraperitoneal fluid. No free air. Ventral Wall: No hernia. Abdominal Nodes: No retroperitoneal or mesenteric adenopathy by size criteria. Vessels: Aorta and inferior vena cava are normal in size. PELVIS: Pelvic Organs: Unremarkable. Bladder: Unremarkable. Pelvic Nodes: No enlarged lymph nodes. Miscellaneous: No inguinal hernias are seen. Bones: Unremarkable. IMPRESSION: Isolated finding of gastric cardia mural thickening up to 1.7 cm. As discussed this is not in the setting of a hiatal hernia and could represent an early manifestation of gastric malignancy. Please note that the stomach is not significantly distended and therefore this appearance conceivably could represent a manifestation of apposition of redundant folds within the gastric cardia. Endoscopic visualization may be warranted given this appearance and the clinical history provided. Elsewhere the study appears normal. Dictated by: Se Velasco M.D. on 10/28/2022 at 13:25 Approved by: Se Velasco M.D. on 10/28/2022 at 13:34
== END ==
PROVIDERS: PCP Family Medicine; Referring Provider Internal Medicine Gastroenterology; Visit Provider Internal Medicine Gastroenterology
DX: R10.13 Epigastric pain (principal); K59.00 Constipation, unspecified; R63.4 Abnormal weight loss
CPT/HCPCS: 74177; Q9967

== ENCOUNTER 2022-11-23 10:59 | Day surgery (SDC) | payer MEDICARE, OTHER, SELFPAY ==
--- NOTE | 2022-11-23 | PATH_ITS ---
[facility] Accession Number: [id number] No. of containers..04 Tissue . 01 Material submitted: . PART A: duodenum - DUODENUM BIOPSY PART B: stomach - ANTRUM BIOPSY PART C: gastrointestinal site - GASTRIC CARDIA BIOPSY PART D: esophagus - ESOPHAGUS BIOPSY . 01 Diagnosis: A. Duodenum, Biopsy: Duodenal mucosa with no diagnostic abnormality. Negative for active inflammation, features of sprue, dysplasia, or malignancy. . B. Antrum, Biopsy: Gastric mucosa with mild chronic inflammation. No Helicobacter pylori organisms identified on immunohistochemical evaluation. No intestinal metaplasia, dysplasia, or malignancy. . C. Gastric Cardia, Biopsy: Gastric mucosa with mild chronic inflammation. No Helicobacter pylori organisms identified on immunohistochemical evaluation. No intestinal metaplasia, dysplasia, or malignancy. . D. Esophagus, Biopsy: Esophageal squamous epithelium with no significant diagnostic alterations. No evidence of eosinophilic esophagitis. No fungal organisms identified on H/E slide. No dysplasia or malignancy. [facility] 11/29/2022 1205 Local . 01 Electronically signed: . Debo Reynaga MD, Pathologist NPI- [id number] . 01 Gross description: . Part A: DUODENUM BIOPSY: Received in formalin is 1 fragment(s) of bell, soft tissue measuring 0.3 x 0.3 x 0.3 cm submitted entirely in 1 cassette(s) Part B: ANTRUM BIOPSY: Received in formalin are 2 fragment(s) of bell, soft tissue measuring 0.1 x 0.1 x 0.1 cm to 0.3 x 0.3 x 0.3 cm submitted entirely in 1 cassette(s) Part C: GASTRIC CARDIA BIOPSY: Received in formalin are multiple fragment(s) of bell, soft tissue measuring 0.1 x 0.1 x 0.1 cm to 0.3 x 0.2 x 0.2 cm submitted entirely in 1 cassette(s) Part D: ESOPHAGUS BIOPSY: Received in formalin are 2 fragment(s) of bell, soft tissue measuring 0.1 x 0.1 x 0.1 cm to 0.3 x 0.2 x 0.2 cm submitted entirely in 1 cassette(s) /RENE 11/25/2022 1844 Local . 01 Microscopic: . B. An immunohistochemical stain was performed to evaluate for Helicobacter organisms and is negative. The control stain showed appropriate reactivity. . C. An immunohistochemical stain was performed to evaluate for Helicobacter organisms and is negative. The control stain showed appropriate reactivity. . . * This test was developed and its performance characteristics determined by [employer]. It has not been cleared or approved by the U.S. Food and Drug Administration. The FDA has determined that such clearance or approval is not necessary. This test is used for clinical purposes. It should not be regarded as investigational or for research. . 01 Pathologist provided ICD-10: K29.70 . 01 CPT . 929453, 386129, 787304, 802565, [id number] Specimen Comment: A courtesy copy of this report has been sent to [phone] Performed at: 01 [facility] [address] [place] [address], [place], [place] [id number] MD Alcides Billingsley MD Phone: [phone]
[2022-11-23 11:17] VITALS: BMI 19.7
[2022-11-23] MEDS: LACTATED RINGERS 1,000 ML 100 ML IV (11:42)
[2022-11-23 11:43] VITALS: BP 188/75; PULSE 75; RESP 17; TEMP 36.8; O2SAT 100
--- NOTE | 2022-11-23 12:38 | PM.HP.1 ---
History of Present Illness History of Present Illness Date Patient Seen: 11/23/22 Chief complaint: EGD Narrative: Nausea and abdominal discomfort with reflux 50% improved on anti secretories. Also cervical dysphagia somewhat improved. And CT scan showing increased wall thickness in the gastric cardia not associated with a hiatal hernia. [facility] Medical History (Updated 11/10/22 @ 11:26 by Jarod Reddy MD) Allergic rhinitis Anxiety Cataract (2013) Cervical radiculopathy Cervical spondylosis Cervical stenosis of spine Chicken pox Concussion COVID Depressive disorder Diverticulosis Dizziness Essential thrombocythemia Finger fracture, left (2007) Foot pain (2009) Hayfever Hearing loss (2012) Hyperlipidemia (12/16/14) Hypertension Hyponatremia EDUAR-2 gene mutation Low back pain Lumbar spondylosis Measles Meniere's disease (12/16/14) Meniere's disease (1993) Radiculopathy, lumbosacral region Sensation of cold in lower extremity Tinnitus (1993) Tubular adenoma of colon Vertigo (1993) Surgical History Anesthesia complication History of orthopedic surgery (2007) Status post hysterectomy (1986) Family History Father Colon cancer Brain tumor Pneumonia Mother Hypertension Stroke Sister Breast cancer Brother Alcoholism Alcoholic liver disease Social History household members: spouse Smoking Status: Never smoker alcohol intake: never substance use type: does not use Meds Home Medications and Allergies Home Medications Medication Instructions Recorded Confirmed Type cetirizine 10 mg tablet 10 mg PO PRN PRN Allergy Symptoms 04/27/12 11/23/22 History ##0 multivitamin 1 tab PO DAILY 08/30/21 11/23/22 History naproxen sodium 220 mg tablet 220 mg PO BID 08/30/21 11/23/22 History (Aleve) cholecalciferol (vitamin D3) 50 50 mcg PO DAILY 01/06/22 11/23/22 History mcg (2,000 unit) capsule atorvastatin 20 mg tablet 20 mg PO BEDTIME #90 tabs 06/28/22 11/23/22 Rx aspirin 81 mg capsule 81 mg PO DAILY 06/30/22 11/23/22 History diazepam 2 mg tablet 2 mg PO Q4-6H PRN vertigo per 08/23/22 11/23/22 Rx records #20 tabs furosemide 20 mg tablet 20 mg PO DAILY #90 tabs 08/23/22 11/23/22 Rx ondansetron 4 mg disintegrating 4 mg PO Q6-8H PRN nausea and 09/06/22 11/23/22 Rx tablet vomiting #10 tabs gabapentin 100 mg capsule 100 mg PO TID #270 caps 09/07/22 11/23/22 Rx Physical Therapy #1 ea 09/27/22 11/10/22 Rx pantoprazole 40 mg tablet,delayed 40 mg PO DAILY #30 tabs 09/27/22 11/23/22 Rx release (Protonix) zolpidem 5 mg tablet 5 mg PO BEDTIME PRN insomnia #30 09/27/22 11/23/22 Rx tabs famotidine 20 mg tablet 20 mg PO BEDTIME #30 tabs 10/04/22 11/23/22 Rx (Zantac-360 (famotidine)) gabapentin 600 mg tablet See Rx Instructions .Route 10/31/22 11/10/22 Rx .COMPLEX #60 tabs Allergies Allergy/AdvReac Type Severity Reaction Status Date / Time cephalexin Allergy Intermediate Rash Verified 11/23/22 11:13 sertraline [From Zoloft] Allergy Intermediate Rash Verified 11/23/22 11:13 amoxicillin [AMOXICILLIN] Allergy Mild Verified 11/23/22 11:13 azithromycin [AZITHROMYCIN] Allergy Mild Verified 11/23/22 11:13 clavulanic acid Allergy Mild Verified 11/23/22 11:13 [CLAVULANIC ACID] codeine [CODEINE] Allergy Mild Verified 11/23/22 11:13 erythromycin base Allergy Mild Verified 11/23/22 11:13 [ERYTHROMYCIN BASE] Penicillins [PENICILLINS] Allergy Mild Verified 11/23/22 11:13 Exam Vital Signs (past 8 hours): - 11/23/22 11:43 Temperature 98.3 F Pulse Rate 75 Respiratory Rate 17 Blood Pressure 188/75 H Pulse Oximetry 100 Oxygen Delivery Method Room Air Oxygen Delivery Method Room Air Narrative Exam Narrative: Oropharynx free of lesions Chest clear to auscultation percussion Cardiac exam reveals no S3 or murmur Assessment & Plan Assessment & Plan narrative: Improved nausea and epigastric pain on medications rule out residual inflammation or ulcer. Improved dysphagia but need to consider whether a mechanical lesion is causing residual symptoms. Finally, need for evaluation in the gastric cardia. Risks, benefits, alternatives have been explained. Further recommendations will follow-up results of the study
--- NOTE | 2022-11-23 12:41 | PM.OP.EGD ---
Operative Date/Time/Diagnoses Date of procedure: 11/23/22 Pre-op diagnosis: See indication and findings Procedure & Clinicians Study performed: EGD Indications: Improved epigastric pain and nausea though still present on medications. Also improved cervical dysphagia. Abnormal CT scan showing thickness in the gastric cardia Surgeon: Devin Thompson Procedure Notes Procedure in detail: After informed consent was obtained the patient was placed in left lateral decubitus position. The video upper scope placed into the oropharynx and with the patient's help swelled into the esophagus. The esophagus stomach and duodenum were carefully examined. On withdrawal retroflexed view the GE junction was performed. The scope was removed. The patient tolerated procedure well. Blood loss none Complications none Sedation mac Findings 1. Normal body of the esophagus the with very small yellowish white lesions, not exudate. Biopsies taken to diagnose and to rule out eosinophilic esophagitis 2. Normal squamocolumnar junction 3. Gastric cardia essentially normal though on close evaluation there was a small cluster of hyperplastic polyps 2-3 mm in size. Biopsies were taken in the cardia and of these polyps. 4. Normal distal stomach biopsies taken in the body and antrum to rule out Helicobacter 5. Normal duodenal bulb and sweep. Biopsies taken to rule out celiac given current symptoms This exam is generally good news for Christina. We will be in touch regarding the biopsies. She should stay on her current medications for the present time.
[2022-11-23 13:07] VITALS: BP 124/62; PULSE 66; RESP 16; TEMP 36.1; O2SAT 96
[2022-11-23 13:12] VITALS: BP 127/66; PULSE 67; RESP 16; O2SAT 96
[2022-11-23 13:17] VITALS: BP 113/78; PULSE 65; RESP 12; TEMP 36.1; O2SAT 99
[2022-11-23 13:22] VITALS: BP 141/66; PULSE 65; RESP 19; O2SAT 97
[2022-11-23 13:27] VITALS: BP 138/70; PULSE 65; RESP 13; TEMP 36.1; O2SAT 98
== END 2022-11-23 13:45 | disposition home or self-care (01) ==
PROVIDERS: PCP Family Medicine; Referring Provider Internal Medicine Gastroenterology; Visit Provider Internal Medicine Gastroenterology
PROC: 0DJ08ZZ Inspection of Upper Intestinal Tract, Via Natural or Artificial Opening Endoscopic (ICD-10-PCS; CPT 43235; principal; 2022-11-23 14:30)
DX: K29.50 Unspecified chronic gastritis without bleeding (principal)
CPT/HCPCS: 43239; J2704

== ENCOUNTER → 2022-11-28 15:42 | Outpatient (CLI) | payer MEDICARE, OTHER, SELFPAY ==
--- NOTE | 2022-11-28 15:44 | DI.RAD.S_ITS ---
PROCEDURE: XR WRIST RT MIN 3V INDICATIONS: Right wrist pain TECHNIQUE: 4 views of the wrist were acquired. COMPARISON: None. FINDINGS: Bones: Advanced degenerative changes at the STT. Mild 1st CMC and radiocarpal degenerative changes. Possible old deformity of the 5th metacarpal. Soft tissues: No suspicious calcifications. IMPRESSION: Advanced degenerative changes at the STT, and mild 1st CMC and radiocarpal degenerative changes. Possible old deformity of the 5th metacarpal bone. If there is high concern for further derangement, consider MRI evaluation. Dictated by: Leonardo Anderson M.D. on 11/28/2022 at 16:41 Approved by: Leonardo Anderson M.D. on 11/28/2022 at 16:44
== END ==
PROVIDERS: PCP Family Medicine; Referring Provider Anesthesiology; Visit Provider Anesthesiology
DX: M25.531 Pain in right wrist (principal)
CPT/HCPCS: 73110

== ENCOUNTER 2022-12-07 09:41 | Outpatient (CLI) | payer MEDICARE, OTHER, SELFPAY ==
--- NOTE | 2022-12-07 09:42 | DI.RAD.S_ITS ---
PROCEDURE: PAIN L/S FACET INJ/BLK 1ST CARA COMPARISON: None. INDICATIONS: SPONDYLOSIS FINDINGS: Low resolution fluoroscopic spot films were obtained intraoperatively and show bilateral needle placement at L3, L4 and L5 as labeled films, for medial branch block IMPRESSION: Fluoroscopic guidance Approved by: Rosalio Henley M.D. on 12/07/2022 at 13:23
[2022-12-07 09:50] VITALS: BP 119/59; PULSE 72; RESP 18; TEMP 37.1; O2SAT 99
[2022-12-07 10:07] VITALS: BP 174/79; PULSE 74; RESP 12; O2SAT 100
[2022-12-07 10:13] VITALS: BP 162/59; PULSE 72; RESP 22; O2SAT 100
[2022-12-07] MEDS: BUPIVACAINE 0.5% (PF) 10 ML VIAL 5 ML INJ (10:15)
[2022-12-07] MEDS: IOPAMIDOL 15 ML VIAL 3 ML INJ (10:16)
[2022-12-07 10:18] VITALS: BP 159/70; PULSE 73; RESP 16; O2SAT 100
[2022-12-07 10:22] VITALS: BP 156/79; PULSE 69; RESP 20; O2SAT 100
[2022-12-07 10:25] VITALS: BP 147/67; PULSE 65; RESP 16; O2SAT 100
--- NOTE | 2022-12-07 10:30 | P.PCN_ITS ---
Date/Time/Diagnoses Date of procedure: 12/07/22 Time of procedure: 10:00 Procedure Notes Physician: Jarod Reddy Total Fluoroscopy time (seconds): 19 Total sedation minutes: 0 Procedure in detail & Post-procedure care: Bilateral L3, 4, 5 Lumbar Medial Branch Blocks Indications: Christina is presenting for treatment of lumbar spondylosis with low back pain. Preoperative diagnosis: Bilateral lumbar spondylosis Postoperative diagnosis: Same Pre-procedure History: Patient demonstrates today moderate to severe non- radicular back pain without neurologic deficit aggravated by hyperextension yes Back pain greater than leg pain? yes Patient today has tenderness over the suspected joint(s) yes History of post-traumatic injury? no Hypertrophic arthropathy yes Back pain associated with suspected motion segment instability, hypermobility or pseudoarthrosis no F Pre-testing pain score (VAS): 5/10 Focused Examination: Ax3 Mood and affect are normal Vital Signs: VSS Consent: Following review of allergies and potential side effects/complications, including, but not necessarily limited to, infection, allergic reaction, local tissue breakdown, stroke, temporary or permanent nerve injury, paralysis, and possible , the patient indicated that they understood and agreed to proceed.? An informed consent document was signed by the patient, witnessed by a nurse and placed in the patient's chart.? Additionally, other treatment options including medications and physical therapy were reviewed with the patient. All questions were answered. Site was then marked. Anesthesia: Local Position: Prone Monitoring: NIBP, Pulse oximetry, 3 lead EKG Needle used: 25G 3.5 inch spinal needle Contrast: Isovue 300M Injectate: 0.5% bupivacaine 1 mL per site Procedure: The patient was brought into the procedure room and positioned into the prone position. Skin was prepped with a Chloraprep solution, allowed to air dry, and then draped in sterile fashion.? The right L4-5 and L5-S1 facet joints were visually identified with fluoroscopy. Lidocaine 1% was used to anesthetize the skin over each target destination with a 25ga needle. A 25 ga, 3.5 inch spinal needle was advanced to the location of the medial branch at the junction of the superior articular process and the transverse process at right L3, 4, 5 using intermittent fluoroscopy in the AP view. Isovue 300M contrast 0.2ml was injected at each level outlining the medial borders for each level and the base of the SAP of the sacrum in the AP and lateral views. There was no evidence of vascular or intrathecal uptake. The above injectate was slowly injected at each target destination. The left L4-5 and L5-S1 facet joints were visually identified with fluoroscopy. Lidocaine 1% was used to anesthetize the skin over each target destination with a 25ga needle. A 22 ga, 3.5 inch spinal needle was advanced to the location of the medial branch at the junction of the superior articular process and the transverse process at left L3, 4, 5 using intermittent fluoroscopy in the AP view. Isovue 300M contrast 0.2ml was injected at each level outlining the medial borders for each level and the base of the SAP of the sacrum in the AP and lateral views. There was no evidence of vascular or intrathecal uptake. The above injectate was slowly injected at each target destination. At the end of the procedure the needles were withdrawn and Band-Aids were applied for a dressing. At the end of the procedure the needles were withdrawn and Band-Aids were applied for a dressing. Post Procedure: Patient was taken to the recovery and monitored. The patient was provided a Pain Log to continue to record the patient's response to the target- specific procedure prior to the patient's follow-up visit with the referring physician. Patient was stable upon discharge. Detailed post procedure instructions were provided. Patient was asked to call in the event of worsening pain, fever, weakness, numbness or bladder or bowel incontinence. Postoperatively, today patient demonstrates the following changes with hyperextension and with tenderness over the suspected joint(s). Provacative testing using the Hopkins's facet loading test Right side Left side Directly before the block ?VAS (0-10) = 5/10 VAS (0-10) = 5/10 5 minutes after the block VAS (0-10) = 1/10 VAS (0-10) = 1/10 Percentage relief obtained with this diagnostic block 80 % 80 % Any improved physical functioning directly after the blocks? Range of motion Based on the medial branches blocked today, if the patient meets insurance criteria for radiofrequency, the treatment should result in the denervation of the bilateral L4-5 and L5-S1 facet joint nerves. We would expect to denervate a total of 4 facets during the radiofrequency ablation.
== END 2022-12-07 10:32 | disposition home or self-care (01) ==
LOC: RAD 09:41
PROVIDERS: PCP Family Medicine; Referring Provider Anesthesiology; Visit Provider Anesthesiology
DX: M47.816 Spondylosis without myelopathy or radiculopathy, lumbar region (principal)
CPT/HCPCS: 64493; 64494

== ENCOUNTER → 2022-12-22 12:33 | Outpatient (CLI) | payer MEDICARE, OTHER, SELFPAY ==
--- NOTE | 2022-12-22 12:34 | DI.RAD.S_ITS ---
PROCEDURE: XR HIP W PEL IF DONE CARA MIN 4V INDICATIONS: Hip pain TECHNIQUE: AP pelvis with lateral view(s) of the bilateral hip(s). COMPARISON: [facility], CR, [id number] W PEL IF PERFORMED, 02/16/2017, 10:59. FINDINGS: Bones: No fractures or dislocations. Pelvic ring appears intact. No suspicious bony lesions. Soft tissues: The visualized bowel gas pattern is normal. No suspicious soft tissue calcifications. Moderate fecal debris throughout the colon and rectum IMPRESSION: Moderate fecal debris throughout the colon and rectum. No obstruction Approved by: Rosalio Henley M.D. on 12/22/2022 at 19:19
--- NOTE | 2022-12-22 12:34 | DI.RAD.S_ITS ---
PROCEDURE: XR KNEE RT 3V INDICATIONS: Right knee pain TECHNIQUE: 3 views of the knee were acquired. COMPARISON: None. FINDINGS: Bones: No fractures or dislocations. No suspicious bony lesions. Generalized decreased osseous mineralization noted. Soft tissues: No joint effusion. No suspicious soft tissue calcifications. IMPRESSION: Osteopenia without fracture Approved by: Rosalio Henley M.D. on 12/22/2022 at 19:16
== END ==
PROVIDERS: PCP Family Medicine; Referring Provider Anesthesiology; Visit Provider Anesthesiology
DX: M85.861 Other specified disorders of bone density and structure, right lower leg (principal); M25.561 Pain in right knee; M25.559 Pain in unspecified hip
CPT/HCPCS: 73522; 73562

== ENCOUNTER → 2023-01-06 14:16 | Outpatient (CLI) | payer MEDICARE, OTHER, SELFPAY ==
[2023-01-06 14:56] LABS: BUN Creatinine Ratio 21.9 (6-22); Blood Urea Nitrogen 16 mg/dL (7-17); Carbon Dioxide 31 mmol/L (22-32); Chloride 92 mmol/L (98-107); Estimated Glomerular Filt Rate > 60 mL/min (>60); Glucose 100 mg/dL (80-110); HEMOLYSIS < 15 (0-50); Potassium 4.8 mmol/L (3.4-5.1); Sodium 129 mmol/L (137-145)
== END ==
PROVIDERS: PCP Family Medicine; Referring Provider Family Medicine; Visit Provider Family Medicine
DX: R25.2 Cramp and spasm (principal)
CPT/HCPCS: 36415; 80048

== ENCOUNTER → 2023-04-10 13:21 | Outpatient (CLI) | payer MEDICARE, OTHER, SELFPAY ==
--- NOTE | 2023-04-10 13:23 | DI.RAD.S_ITS ---
PROCEDURE: XR FOOT LT MIN 3V INDICATIONS: Left foot pain, ball of foot TECHNIQUE: 3 views of the foot were acquired. COMPARISON: None. FINDINGS: Bones: No fractures or dislocations. Osteoarthritic changes are noted throughout left foot. Mild osteopenia is seen. No suspicious bony lesions. Soft tissues: No tibiotalar joint effusion. Achilles tendon appears normal. IMPRESSION: No acute left foot fracture or dislocation. Mild left foot osteoarthritis and diffuse osteopenia. Dictated by: Rigo Herring M.D. on 04/10/2023 at 15:50 Approved by: Rigo Herring M.D. on 04/10/2023 at 15:50
== END ==
PROVIDERS: PCP Family Medicine; Referring Provider Physician Assistant; Visit Provider Physician Assistant
DX: M79.672 Pain in left foot (principal); M19.072 Primary osteoarthritis, left ankle and foot; M85.862 Other specified disorders of bone density and structure, left lower leg
CPT/HCPCS: 73630

== ENCOUNTER 2023-05-10 08:57 | Outpatient (CLI) | payer MEDICARE, OTHER, SELFPAY ==
[2023-05-10] VITALS (7 sets, daily range): BP systolic 146–212; BP diastolic 68–100; PULSE 62–72; RESP 13–20; TEMP 36.3; O2SAT 97–100
--- NOTE | 2023-05-10 08:58 | DI.RAD.S_ITS ---
PROCEDURE: PAIN L/S TRANSFORAMINAL INJECT INDICATIONS: Radiculopathy COMPARISON: [facility], , PAIN L/S TRANSFORAMINAL INJECT, 10/13/2022, 15:41. FINDINGS: Fluoroscopic spot filming was performed to verify placement of spinal needles at the L4 level(s), as labeled on the films. Appropriate location(s) of the needle tip(s) was confirmed by injection of iodinated contrast. IMPRESSION: Fluoro guidance was provided intraoperatively for right L4-L5 transforaminal epidural steroid injection performed by ordering physician. Dictated by: Erika Contreras M.D. on 05/10/2023 at 23:12 Approved by: Erika Contreras M.D. on 05/10/2023 at 23:14
[2023-05-10] MEDS: MIDAZOLAM 2 MG/2 ML VIAL 1 MG IV (09:43)
[2023-05-10] MEDS: DEXAMETHASONE 10 MG/ML VIAL INJ (09:47)
[2023-05-10] MEDS: iopamidoL 15 ML VIAL 3 ML INJ (09:47)
--- NOTE | 2023-05-10 10:09 | P.PCN_ITS ---
Date/Time/Diagnoses Date of procedure: 05/10/23 Time of procedure: 09:30 Procedure Notes Physician: Jarod Reddy Total Fluoroscopy time (seconds): 22 Total sedation minutes: 11 Procedure in detail & Post-procedure care: Right L4-5 Transforaminal Epidural Steroid Injection Indications: Christina is presenting for treatment of lumbar radiculopathy with low back and leg pain. Preoperative diagnosis: Lumbar radiculopathy Postoperative diagnosis: Same Focused Examination: Ax3 Mood and affect are normal Vital Signs: VSS ASA: 2 Consent: Following review of allergies and potential side effects/complications, including, but not necessarily limited to, infection, allergic reaction, local tissue breakdown, stroke, temporary or permanent nerve injury, paralysis, and possible , the patient indicated that they understood and agreed to proceed.? An informed consent document was signed by the patient, witnessed by a nurse and placed in the patient's chart.? Additionally, other treatment options including medications and physical therapy were reviewed with the patient. All questions were answered. Site was then marked. Anesthesia: After review of previous anesthetic history and IV conscious sedation, the patient was deemed safe to proceed with today's procedure with IV conscious sedation. IV sedation was accomplished with midazolam 1 mg administered by the RN after order by Dr. Reddy. Sedation was titrated to patient comfort during the course of the procedure. Patient remained responsive to all verbal commands. Position: Prone Monitoring: NIBP, Pulse oximetry, 3 lead EKG Needle used: 22G 3.5 inch spinal needle Contrast: Isovue 300M Injectate: 10 mg Dexamethasone mixed with 1% lidocaine 1 ml and normal saline 1 mL Technique: The skin was prepped with chloraprep and draped in a sterile fashion. Time out was performed as per protocol. Oxygen applied via NC. Skin and subcutaneous structures of the needle entry site were infiltrated with 3mL of lidocaine 1%. Under fluoroscopic guidance, using an ipsilateral oblique view,?a 22 gauge 3.5 inch needle was advanced to the base of the right L4?pedicle.? The needle was advanced to the superio-posterior aspect of the neural foramen under lateral view.? Oblique and AP views were rechecked. No paresthesias noted by the patient during needle placement. In AP view and utilizing real-time digital subtraction fluoroscopy, 2 ml contrast was slowly injected. Epidural spread was observed without evidence for intravascular nor intrathecal uptake. Contrast spread was seen craniocaudally. The above injectate was then administered without paresthesias and the needle was subsequently withdrawn. Band-Aids applied to injection sites. EBL: less than 1 ml Complications: None Post Procedure: Patient was taken to the recovery and monitored. The patient was provided a Pain Log to continue to record the patient's response to the target- specific procedure prior to the patient's follow-up visit with the referring physician. Patient was stable upon discharge. Detailed post procedure instructions were provided. Patient was asked to call in the event of worsening pain, fever, weakness, numbness or bladder or bowel incontinence.
== END 2023-05-10 10:14 | disposition home or self-care (01) ==
PROVIDERS: PCP Family Medicine; Referring Provider Anesthesiology; Visit Provider Anesthesiology
DX: M54.16 Radiculopathy, lumbar region (principal)
CPT/HCPCS: 64483; 99152; J1100; J2250

== ENCOUNTER → 2023-06-08 11:16 | Outpatient (CLI) | payer MEDICARE, OTHER, SELFPAY ==
--- NOTE | 2023-06-08 11:16 | DI.MG.S_ITS ---
BILATERAL DIGITAL SCREENING MAMMOGRAM 3D/2D WITH CAD: 06/08/2023 CLINICAL: Routine screening. Family history of breast cancer. Comparison is made to exams dated: 06/04/2022 mammogram, 06/03/2021 mammogram, and 06/02/2020 mammogram - [facility]. Both breasts are heterogeneously dense, which may obscure small masses (category c / 51-75% glandular tissue). Current study was also evaluated with a Computer Aided Detection (CAD) system. There are benign calcifications in the left breast. No significant masses, calcifications, or other findings are seen in either breast. There has been no significant interval change. IMPRESSION: BENIGN There is no mammographic evidence of malignancy. A 1 year screening mammogram is recommended. Based on the Tyrer Cuzick model (a risk assessment model) the patient's lifetime risk is 8.5% and her 10 year risk is 8.5%. According to the ACR, ACS, and NCCN guidelines, an annual breast MRI exam along with mammogram is recommended if the patient's lifetime risk is 20% or greater. This exam was interpreted at Station ID: [id number]. NOTE: For mammograms, a report in lay terms will be sent to the patient. Approximately 15% of breast malignancies will not be visualized mammographically. In the management of a palpable breast mass, a negative mammogram must not discourage biopsy of a clinically suspicious lesion. Electronically Signed By: Leonardo [email or web address]:06/08/2023 11:53:00 letter sent: Normal Exam ACR BI-RADS Category 2: Benign Finding(s) 3342F
== END ==
PROVIDERS: PCP Family Medicine; Referring Provider Family Medicine; Visit Provider Family Medicine
DX: Z12.31 Encounter for screening mammogram for malignant neoplasm of breast (principal); Z80.3 Family history of malignant neoplasm of breast
CPT/HCPCS: 77063; 77067

== ENCOUNTER → 2023-07-05 09:39 | Outpatient (CLI) | payer MEDICARE, OTHER, SELFPAY ==
[2023-07-05 10:39] LABS: Cholesterol 158 mg/dL (140-199); HDL Cholesterol 71 mg/dL (40-60); LDL Cholesterol Calculated 68 mg/dL (<100); Triglycerides 97 mg/dL (35-150)
[2023-07-05 17:02] LABS: Creatinine Urine Random 44.8 mg/dL
[2023-07-05 17:06] LABS: Microalbumi Creatinin Ratio Ur 26.7 ug/mg CR (<30); Microalbumin Urine Random 1.2 mg/dL (0-1.6)
== END ==
PROVIDERS: PCP Family Medicine; Referring Provider Family Medicine; Visit Provider Family Medicine
DX: I10 Essential (primary) hypertension (principal)
CPT/HCPCS: 36415; 80061; 82043; 82570

== ENCOUNTER → 2023-07-07 13:18 | Outpatient (CLI) | payer MEDICARE, OTHER, SELFPAY ==
[2023-07-07 16:23] LABS: BUN Creatinine Ratio 27.3 (6-22); Blood Urea Nitrogen 18 mg/dL (7-17); Estimated Glomerular Filt Rate > 60 mL/min (>60)
== END ==
LOC: LAB 13:19
PROVIDERS: PCP Family Medicine; Referring Provider Family Medicine; Visit Provider Family Medicine
DX: R42 Dizziness and giddiness (principal); Z79.899 Other long term (current) drug therapy; R26.89 Other abnormalities of gait and mobility
CPT/HCPCS: 36415; 82565; 84520

== ENCOUNTER → 2023-07-08 13:45 | Outpatient (CLI) | payer MEDICARE, OTHER, SELFPAY ==
--- NOTE | 2023-07-08 13:47 | DI.CT.S_ITS ---
PROCEDURE: CT HEAD/BRAIN WO/W CON INDICATIONS: rule out mass, hydrocephalus TECHNIQUE: 4.5 mm thick angled axial sections acquired from the foramen magnum to the vertex both before and after the administration of intravenous contrast, with coronal and sagittal reformats. For radiation dose reduction, the following was used: automated exposure control, adjustment of mA and/or kV according to patient size. COMPARISON: [facility], CT, HEAD WITHOUT CONTRAST, 05/13/2015, 16:15. FINDINGS: Image quality: Excellent. CSF spaces: Basal cisterns are patent. No extra-axial fluid collections. Ventricles are symmetric in size and shape. Brain: No midline shift. No intracranial bleeds or masses. No abnormal intracranial enhancement. There is cerebral volume loss for age. There is periventricular white matter chronic small vessel ischemic change. There is intracranial internal carotid artery atherosclerosis. Skull and face: Calvarium and visualized facial bones appear intact, without suspicious lesions. Sinuses: Visualized sinuses and mastoids are clear. IMPRESSION: Mild microvascular atherosclerotic change in the deep white matter of each hemisphere, expected for age. No mass or hydrocephalus present. Dictated by: Se Velasco M.D. on 07/08/2023 at 20:17 Approved by: Se Velasco M.D. on 07/08/2023 at 20:18
== END ==
PROVIDERS: PCP Family Medicine; Referring Provider Family Medicine; Visit Provider Family Medicine
DX: I65.29 Occlusion and stenosis of unspecified carotid artery (principal); R42 Dizziness and giddiness; R26.89 Other abnormalities of gait and mobility
CPT/HCPCS: 70470

== ENCOUNTER → 2023-12-27 08:52 | Outpatient (CLI) | payer MEDICARE, OTHER, SELFPAY ==
[2023-12-27 10:16] LABS: Appearance Urine UA SL CLOUDY; Bilirubin Urine UA NEGATIVE (NEGATIVE); Color Urine UA RED; Glucose Urine UA NEGATIVE (Negative); Ketones Urine UA NEGATIVE (NEGATIVE); Leukocyte Esterase Urine UA 3+ (NEGATIVE); Nitrite Urine UA NEGATIVE (Negative); Occult Blood Urine UA 3+ (Negative); Protein Urine UA 2+ (Negative)
[2023-12-27 10:25] LABS: Bacteria Urine Few (2-10); Culture Indicated Urine Specimen Cultured; RBC Urine 30-100/HPF (0-5/HPF); Squamous Epithelial Cell Urine 1-5 /HPF (0-5/HPF); Urine Volume 10mL (spun); WBC Urine 30-100/HPF (0-5/HPF)
== END ==
PROVIDERS: Family Provider Family Medicine; PCP Family Medicine; Referring Provider Family Medicine; Visit Provider Family Medicine
DX: R30.9 Painful micturition, unspecified (principal); R35.0 Frequency of micturition
CPT/HCPCS: 81001; 87077; 87086; 87186

== ENCOUNTER 2023-12-28 11:17 | Emergency (ER) | payer MEDICARE, OTHER, SELFPAY ==
[2023-12-28 11:18] VITALS: BP 138/63; PULSE 83; RESP 14; TEMP 36.4; O2SAT 97; BMI 21.6
--- NOTE | 2023-12-28 11:25 | DI.RAD.S_ITS ---
PROCEDURE: XR CHEST 1V INDICATIONS: chest pain TECHNIQUE: One view of the chest was acquired. COMPARISON: [facility], , XR CHEST 1V, 08/16/2022, 10:14. [facility], , CHEST 2 VIEW, 05/18/2015, 14:52. FINDINGS: Surgical changes and devices: None. Lungs and pleura: Lungs are clear. No pleural effusions or pneumothorax. Mediastinum: Mediastinal contours appear normal. Heart size is normal. Bones and chest wall: No suspicious bony lesions. Overlying soft tissues appear unremarkable. IMPRESSION: No acute cardiopulmonary abnormality is seen. Dictated by: Marco Griffin M.D. on 12/28/2023 at 10:45 Approved by: Marco Griffin M.D. on 12/28/2023 at 10:45
--- NOTE | 2023-12-28 11:29 | EKG_ITS ---
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
[2023-12-28] MEDS: SODIUM CHLORIDE 0.9% 1,000 ML 1000 ML IV (11:51)
[2023-12-28 11:52] LABS: Add Manual Diff / Slide Review NO; Basophils Absolute Auto 0 /uL (0-100); Eosinophils Absolute Auto 300 /uL (0-450); Hematocrit 34.8 % (36-46); Hemoglobin 12.1 g/dL (12.0-16.0); Lymphocytes Absolute Auto 100 /uL (1100-4500); Lymphocytes Percent Auto 0.9 % (25-40); Mean Corpuscular HGB Conc 34.7 % (30-36); Mean Corpuscular Hemoglobin 32.9 PG (26-34); Mean Corpuscular Volume 94.8 fL (80-100); Monocytes Absolute Auto 300 /uL (0-900); Monocytes Percent Auto 2.2 % (3-14); Neutrophils Absolute Auto 13800 /uL (1500-7000); Neutrophils Percent Auto 94.9 % (50-75); Platelet Count 371 X10^3/uL (150-400); Red Blood Cell Count 3.67 X10^6/uL (4.0-5.2); Red Cell Distribution Width 13.1 % (11.6-14.8); White Blood Cell Count 14.5 X10^3/uL (4.5-11.0)
[2023-12-28 11:59] LABS: PTT Partial Thromboplastin Tim 19 SECONDS (25.1-36.5)
--- NOTE | 2023-12-28 12:01 | PC.NURSE ---
Recently dx w/ UtI feeling weak. increased weakness since last night. amulated well;gcs 15. resp regular and unlabored
[2023-12-28 12:18] LABS: NT-proBNP (BNP-Adult 18+) 223 pg/mL (<450); Troponin I 0.016 ng/mL (0.01-0.034)
[2023-12-28 12:23] LABS: Alanine Aminotransferase 21 IU/L (<35); Albumin Globulin Ratio 1.7 (1.0-2.8); Alkaline Phosphatase 57 U/L (38-126); Aspartate Aminotransferase 35 IU/L (14-36); BUN Creatinine Ratio 18.2 (6-22); Bilirubin Total 0.9 mg/dL (0.2-1.3); Blood Urea Nitrogen 14 mg/dL (7-17); Calcium 8.5 mg/dL (8.4-10.2); Carbon Dioxide 26 mmol/L (22-32); Chloride 97 mmol/L (98-107); Creatine Kinase 112 U/L (30-135); Estimated Glomerular Filt Rate > 60 mL/min (>60); Globulin 2.4 g/dL (1.7-4.1); Glucose 152 mg/dL (80-110); HEMOLYSIS < 15 (0-50); Lipase 33 U/L (23-300); Magnesium 1.9 mg/dL (1.6-2.3); Potassium 3.8 mmol/L (3.4-5.1); Sodium 129 mmol/L (137-145); Total Protein 6.4 g/dL (6.3-8.2)
--- NOTE | 2023-12-28 12:57 | ED.DIZZY ---
HPI - Dizziness General Chief Complaint: Dizziness Stated Complaint: DEHYDRATED Time Seen by Provider: 12/28/23 11:31 Source: patient Mode of arrival: Ambulatory History of Present Illness HPI Narrative: 73-year-old female with history of dizziness was concerned that she was dehydrated at triage. Currently patient on oral Macrobid and Pyridium prescribed by her primary care physician from a virtual visit, her understanding is that a urine culture is pending from yesterday, 1st dose of antibiotic and Pyridium, her urinary symptoms are improved. However last night she did get up from bed and went over to the bathroom to urinate, on return to her bed she felt quite dizzy. She was able to sleep overnight, some dizziness this morning, no associated chest pain or palpitation or heart racing sensation. Some transient nausea. No headache or neck pain. No injury or trauma. She had a similar episode a few years ago that was felt to be dehydration, and felt that she might be dehydrated. No diarrhea, no black or red stools. She has not been vomiting. Related Data Home Medications Medication Instructions Recorded Confirmed cetirizine 10 mg tablet 10 mg PO PRN PRN Allergy Symptoms 04/27/12 10/24/23 ##0 multivitamin 1 tab PO DAILY 08/30/21 10/24/23 cholecalciferol (vitamin D3) 50 50 mcg PO DAILY 01/06/22 10/24/23 mcg (2,000 unit) capsule aspirin 81 mg capsule 81 mg PO DAILY 06/30/22 10/24/23 magnesium glycinate 100 mg PO BID 07/03/23 10/24/23 triamcinolone acetonide 0.1 % 1 applic topical itching 07/03/23 10/24/23 topical cream ruxolitinib 10 mg tablet (Jakafi) 10 mg PO BID 08/23/23 10/24/23 Previous Rx's Medication Instructions Recorded celecoxib 100 mg capsule 100 mg PO BID #60 caps 08/03/23 estradiol 0.01% (0.1 mg/gram) 1 g vaginal 2XW #42.5 grams 08/23/23 vaginal cream pantoprazole 40 mg tablet,delayed 40 mg PO DAILY #90 tabs 08/30/23 release gabapentin 100 mg capsule 100 mg PO BID #180 caps 08/31/23 atorvastatin 20 mg tablet 20 mg PO BEDTIME #90 tabs 03/26/24 irbesartan 75 mg tablet 75 mg PO DAILY for blood pressure 09/27/23 #180 tabs gabapentin 600 mg tablet See Rx Instructions PO BEDTIME 11/16/23 #180 tabs zolpidem 5 mg tablet 1.25 - 2.5 mg (0.25 - 0.5 x 5 mg) 12/13/23 PO BEDTIME PRN insomnia #45 tabs nitrofurantoin 100 mg PO BID 7 days #14 caps 12/27/23 monohydrate/macrocrystals 100 mg capsule (Macrobid) phenazopyridine 100 mg tablet 100 mg PO TID PRN pain 3 days #6 12/27/23 (Pyridium) tabs Allergies Allergy/AdvReac Type Severity Reaction Status Date / Time cephalexin Allergy Intermediate Rash Verified 12/28/23 11:26 sertraline [From Zoloft] Allergy Intermediate Rash Verified 12/28/23 11:26 amoxicillin [AMOXICILLIN] Allergy Mild Verified 12/28/23 11:26 azithromycin [AZITHROMYCIN] Allergy Mild Verified 12/28/23 11:26 clavulanic acid Allergy Mild Verified 12/28/23 11:26 [CLAVULANIC ACID] codeine [CODEINE] Allergy Mild Verified 12/28/23 11:26 erythromycin base Allergy Mild Verified 12/28/23 11:26 [ERYTHROMYCIN BASE] Penicillins [PENICILLINS] Allergy Mild Verified 12/28/23 11:26 Review of Systems Review of Systems Narrative: Per HPI Patient History Medical History Lumbar radiculopathy Bilateral primary osteoarthritis of knee Hip pain Knee pain Wrist arthritis Lumbar spondylosis Cervical spondylosis Cervical radiculopathy Cervical stenosis of spine Sensation of cold in lower extremity Low back pain Radiculopathy, lumbosacral region COVID Depressive disorder Anxiety Hyponatremia Dizziness Essential thrombocythemia EDUAR-2 gene mutation Hypertension Diverticulosis Meniere's disease (1993) Finger fracture, left (2007) Cataract (2013) Hearing loss (2012) Tinnitus (1993) Vertigo (1993) Chicken pox Foot pain (2009) Measles Hayfever Tubular adenoma of colon Hyperlipidemia (12/16/14) Meniere's disease (12/16/14) Allergic rhinitis Concussion Surgical History Anesthesia complication History of orthopedic surgery (2007) Status post hysterectomy (1986) Family History Father Colon cancer Brain tumor Pneumonia Mother Hypertension Stroke Sister Breast cancer Brother Alcoholism Alcoholic liver disease Social History household members: spouse Smoking Status: Never smoker alcohol intake: never substance use type: does not use Smoking Status: Never smoker alcohol intake frequency: holidays/special occasions only Substance Use Type: does not use Exam Narrative Exam Narrative: GENERAL: Well-developed patient, in mild distress. HEAD: Atraumatic. Normocephalic. EYES: Pupils equal round and reactive. Extraocular motions intact. No scleral icterus. No injection or drainage. ENT: Nose without bleeding, purulent drainage. Throat without erythema, tonsillar hypertrophy or exudate. Airway patent. NECK: Trachea midline. Non tender CARDIOVASCULAR: Regular rate and rhythm without murmurs, gallops, or rubs. RESPIRATORY: Clear to auscultation. Breath sounds equal bilaterally. No wheezes, rales, or rhonchi. GASTROINTESTINAL: Abdomen soft, non-tender, nondistended. EXTREMITIES: No edema or joint tenderness. BACK: Nontender without deformity or crepitance. No flank tenderness. NEURO: AOx3. SKIN: No rash or erythema of visible areas Initial Vital Signs Initial Vital Signs: Vital Signs Temperature 97.5 F L 12/28/23 11:18 Pulse Rate 83 12/28/23 11:18 Respiratory Rate 14 12/28/23 11:18 Blood Pressure 138/63 12/28/23 11:18 Pulse Oximetry 97 12/28/23 11:18 Oxygen Delivery Method Room Air 12/28/23 11:18 Course Orders Ordered: Discontinued Medications Sodium Chloride (Normal Saline 0.9%) 1,000 mls @ 1,000 mls/hr IV BOLUS ONE Stop: 12/28/23 12:48 Last Infusion: 12/28/23 12:49 Dose: Infused Documented By: Admin: 12/28/23 11:51 Dose: 1,000 mls/hr Documented By: DEEPA Vital Signs Vital signs: Vital Signs - 8 hr 12/28/23 11:18 12/28/23 13:10 12/28/23 13:30 Temperature 97.5 F L Pulse Rate 83 78 Respiratory Rate 14 19 Blood Pressure 138/63 134/62 Pulse Oximetry 97 99 Oxygen Delivery Method Room Air Room Air 12/28/23 13:30 12/28/23 14:00 12/28/23 14:15 Temperature Pulse Rate 74 74 Respiratory Rate 15 14 Blood Pressure 134/62 Pulse Oximetry 98 97 Oxygen Delivery Method Room Air 12/28/23 14:15 Temperature Pulse Rate 88 Respiratory Rate 17 Blood Pressure Pulse Oximetry 99 Oxygen Delivery Method MDM - Dizziness Lab Data Lab results narrative: White blood cell count 76200, in context of recent diagnosis UTI yesterday, sodium 129 but has been similar in the past, BUN creatinine unremarkable, glucose normal, hemoglobin 12.1 12/28/23 11:35 12/28/23 11:35 Labs: Lab Results 12/28/23 12/28/23 Range/Units 11:35 13:43 WBC 14.5 H (4.5-11.0) X10^3/uL RBC 3.67 L (4.0-5.2) X10^6/uL Hgb 12.1 (12.0-16.0) g/dL Hct 34.8 L (36-46) % MCV 94.8 (80-100) fL MCH 32.9 (26-34) PG MCHC 34.7 (30-36) % RDW 13.1 (11.6-14.8) % Plt Count 371 (150-400) X10^3/uL Neut % (Auto) 94.9 H (50-75) % Lymph % (Auto) 0.9 L (25-40) % [place] % (Auto) 2.2 L (3-14) % Eos % (Auto) 2.0 (2-4) % Baso % (Auto) 0.0 (0-2) % Neut # (Auto) 98487 H (3785-4390) /uL Lymph # (Auto) 100 L (1409-5536) /uL [place] # (Auto) 300 (0-900) /uL Eos # (Auto) 300 (0-450) /uL Baso # (Auto) 0 (0-100) /uL PT 12.0 (9.4-12.5) SECONDS INR 1.0 (0.9-1.3) APTT 19 L (25.1-36.5) SECONDS Sodium 129 L (137-145) mmol/L Potassium 3.8 (3.4-5.1) mmol/L Chloride 97 L (98-107) mmol/L Carbon Dioxide 26 (22-32) mmol/L BUN 14 (7-17) mg/dL Creatinine 0.77 (0.52-1.04) mg/dL Estimated GFR > 60 (>60) mL/min BUN/Creatinine Ratio 18.2 (6-22) Glucose 152 H (80-110) mg/dL Calcium 8.5 (8.4-10.2) mg/dL Magnesium 1.9 (1.6-2.3) mg/dL Total Bilirubin 0.9 (0.2-1.3) mg/dL AST 35 (14-36) IU/L ALT 21 (<35) IU/L Alkaline Phosphatase 57 (38-126) U/L Total Creatine Kinase 112 (30-135) U/L Troponin I 0.016 < 0.012 (0.01-0.034) ng/mL NT-Pro-B Natriuret Pep 223 (<450) pg/mL Total Protein 6.4 (6.3-8.2) g/dL Albumin 4.0 (3.5-5.0) g/dL Globulin 2.4 (1.7-4.1) g/dL Albumin/Globulin Ratio 1.7 (1.0-2.8) Lipase 33 (23-300) U/L ECG Data Attestation: I personally reviewed and interpreted this ECG as follows: Interpretation: Normal sinus rhythm with a rate of 78, no obvious ST segment elevation or depression changes. DC 156, QRS 84, QTC 433. MDM Narrative Medical decision making narrative: 73-year-old female with dizziness, first day on oral Macrobid/Pyridium treatment from virtual clinic visit yesterday with PCP, recent diagnosis UTI, dysuria symptoms improved, had dizziness symptoms last night and again earlier today, similar to previous episode where she felt dehydrated and was given IV fluids. She denies focal weakness to face arm or leg. Labs sent, white blood cell count 53532 noted, urinary tract infection noted. No CVA tenderness, no fever, normotensive, no tachycardia. EKG unremarkable, troponin negative. IV fluids given, patient felt better, symptoms resolved, able to walk around in the department without symptoms. We discussed further testing that might include CT head, declined. She is willing to stay for 2nd troponin evaluation. Currently asymptomatic after IV fluid hydration, anticipate discharge home if 2nd troponin not concerning. Encouraged to take oral fluids, and continue her course of Macrobid/Pyridium, and follow up early this week with her PCP for urine culture results and further workup as an outpatient Repeat troponin negative, also not measurable. Patient would like to go home, encouraged to continue her antibiotic regimen for UTI as above, and call to follow up with her primary care provider early next week. Return precautions discussed. Discharged home stable, improved Discharge Plan Departure Patient Disposition: Home Clinical Impression: Dizziness, Dehydration, Urinary tract infection Activity Restrictions/Additional Instructions: Episodic dizziness last night and again this morning, currently on new prescription Macrobid antibiotic for urinary tract infection, along with Pyridium to take away the sting, with improved urinary symptoms. Symptoms felt similar to an episode of dehydration, IV fluids given, symptoms did resolve. EKG and blood testing not suggestive of heart attack at this time. Sodium 129 low but has been similar range in the past. Other electrolytes and glucose and kidney function unremarkable. Hemoglobin unremarkable. No symptoms of bleeding. We did discussed CT head imaging to look for brain injury mass or stroke like or other acute changes, declined for now. Continue taking your Macrobid antibiotic and your Pyridium. Follow up with your regular doctor on Monday to discussed symptoms and further workup as an outpatient, or also to check the urine culture results in sure that Macrobid is the appropriate antibiotic free to be taking. It is too early to check urine culture at this time, less than 24 hours before starting antibiotics. Return earlier to this/nearest emergency department for any change worsening symptoms or any concerns prior Prescriptions: No Action cetirizine 10 MG tablet 10 mg PO PRN PRN (Reason: Allergy Symptoms) Qty: 0 celecoxib 100 mg capsule 100 mg PO BID Qty: 60 2RF pantoprazole 40 mg tablet,delayed release (DR/EC) 40 mg PO DAILY Qty: 90 0RF gabapentin 100 mg capsule 100 mg PO BID Qty: 180 0RF Rx Instructions: Take 1 cap with each meal and 1 cap QHS atorvastatin 20 mg tablet 20 mg PO BEDTIME Qty: 90 1RF irbesartan 75 mg tablet 75 mg PO DAILY Qty: 180 0RF gabapentin 600 mg tablet See Rx Instructions PO BEDTIME Qty: 180 1RF Rx Instructions: 1-2 tabs orally bedtime; cholecalciferol (vitamin D3) 50 mcg (2,000 unit) capsule 50 mcg PO DAILY triamcinolone acetonide 0.1 % cream 1 applic topical Patient Comments: both legs zolpidem 5 mg tablet 1.25 - 2.5 mg PO BEDTIME PRN (Reason: insomnia) Qty: 45 1RF nitrofurantoin monohyd/m-cryst [Macrobid] 100 mg capsule 100 mg PO BID 7 Days Qty: 14 0RF Rx Instructions: must administer with a meal/food phenazopyridine [Pyridium] 100 mg tablet 100 mg PO TID PRN (Reason: pain) 3 Days Qty: 6 0RF Jakafi 10 mg tablet 10 mg PO BID estradiol 0.01 % (0.1 mg/gram) cream 1 g vaginal 2XW Qty: 42.5 6RF multivitamin Tablet 1 tab PO DAILY aspirin 81 mg Capsule 81 mg PO DAILY magnesium glycinate 100 mg magnesium capsule 100 mg PO BID Referrals: Kristyn Prado DO [Primary Care Provider] - Stand Alone Forms: Patient Portal/API
[2023-12-28 13:10] VITALS: PULSE 78; RESP 19; O2SAT 99
[2023-12-28 13:30] VITALS: BP 134/62; PULSE 74; RESP 15; O2SAT 98
[2023-12-28 14:00] VITALS: PULSE 74; RESP 14; O2SAT 97
[2023-12-28 14:15] VITALS: BP 134/62; PULSE 88; RESP 17; O2SAT 99
[2023-12-28 14:18] LABS: Troponin I < 0.012 ng/mL (0.01-0.034)
== END 2023-12-28 14:36 | disposition home or self-care (01) ==
PROVIDERS: Emergency Provider Emergency Medicine; Family Provider Family Medicine; PCP Family Medicine
DX: R42 Dizziness and giddiness (principal); E86.0 Dehydration; N39.0 Urinary tract infection, site not specified
CPT/HCPCS: 71045; 80053; 82550; 83690; 83735; 83880; 84484; 85025; 85610; 85730; 93005; 96360; 99284

== ENCOUNTER → 2024-01-30 11:01 | Outpatient (CLI) | payer MEDICARE, OTHER, SELFPAY ==
--- NOTE | 2024-01-30 | DI.MRI.S_ITS ---
PROCEDURE: MR LUMBAR SPINE WO CON INDICATIONS: LOW BACK PAIN TECHNIQUE: Noncontrast sagittal T1 spin echo and T2 fast echo, sagittal STIR, and T2 fast spin echo through the lumbar spine. In cases with scoliosis, additional coronal T2 fast spin echo may be performed. COMPARISON: [facility], MR, MR LUMBAR SPINE WO CON, 08/26/2021, 16:57. FINDINGS: Image quality: Excellent. Alignment and Curvature: There is normal bony alignment. Bone Marrow: Marrow is of normal overall signal. No acute vertebral body compression fractures. Spinal Cord: Conus medullaris terminates at the L1-L2 level. Visualized cord demonstrates normal signal and size. Paraspinous Soft Tissues: No paravertebral masses. T12-L1: Normal appearance. L1-L2: Mild facet arthropathy. No central canal or neural foraminal stenosis. L2-L3: Disc desiccation and mild height loss. Mild diffuse disc bulge. Facet arthropathy and thickening of ligamentum flavum. No significant central canal stenosis. Mild narrowing of the right lateral recess. No significant neural foraminal stenosis. L3-L4: Disc desiccation and mild disc bulge. Facet arthropathy and thickening of ligamentum flavum. No significant central canal stenosis. Mild bilateral neural foraminal stenosis is similar to prior. L4-L5: Disc desiccation and mild diffuse disc bulge with posterior annular tear. Tiny superimposed disc protrusion. Facet arthropathy and thickening of ligamentum flavum. Stable mild central canal stenosis. Stable moderate right and mild left neural foraminal stenosis. L5-S1: Facet arthropathy. No central canal or neural foraminal stenosis. IMPRESSION: 1. Mild degenerative changes of the lumbar spine are stable in appearance compared to prior exam. 2. Mild central canal stenosis at L4-5. Moderate right neural foraminal stenosis at L4-5. Dictated by: Marco Griffin M.D. on 01/30/2024 at 11:59 Approved by: Marco Griffin M.D. on 01/30/2024 at 12:02
== END ==
PROVIDERS: Family Provider Family Medicine; PCP Family Medicine; Referring Provider Physical Medicine & Rehabilitation Pain Medicine; Visit Provider Physical Medicine & Rehabilitation Pain Medicine
DX: M47.816 Spondylosis without myelopathy or radiculopathy, lumbar region (principal); M47.817 Spondylosis without myelopathy or radiculopathy, lumbosacral region; M48.061 Spinal stenosis, lumbar region without neurogenic claudication; M54.50 Low back pain, unspecified
CPT/HCPCS: 72148

== ENCOUNTER → 2024-06-24 13:10 | Outpatient (CLI) | payer MEDICARE, OTHER, SELFPAY ==
--- NOTE | 2024-06-24 13:13 | DI.MG.S_ITS ---
BILATERAL DIGITAL SCREENING MAMMOGRAM 3D/2D WITH CAD: 06/24/2024 CLINICAL: Routine screening. Family history of breast cancer. Comparison is made to exams dated: 06/08/2023 mammogram, 06/04/2022 mammogram, and 06/03/2021 mammogram - [facility]. The breasts are heterogeneously dense, which may obscure small masses (category c / 51-75% glandular tissue). Current study was also evaluated with a Computer Aided Detection (CAD) system. There are benign calcifications in the left breast. No significant masses, calcifications, or other findings are seen in either breast. There has been no significant interval change. IMPRESSION: BENIGN There is no mammographic evidence of malignancy. A 1 year screening mammogram is recommended. Based on the Tyrer Cuzick model (a risk assessment model) the patient's lifetime risk is 7.8% and her 10 year risk is 0.0%. According to the ACR, ACS, and NCCN guidelines, an annual breast MRI exam along with mammogram is recommended if the patient's lifetime risk is 20% or greater. This exam was interpreted at Station ID: [id number]. NOTE: For mammograms, a report in lay terms will be sent to the patient. Approximately 15% of breast malignancies will not be visualized mammographically. In the management of a palpable breast mass, a negative mammogram must not discourage biopsy of a clinically suspicious lesion. Electronically Signed By: Keyla clark/bartolo:06/24/2024 14:43:38 letter sent: Normal Exam ACR BI-RADS Category 2: Benign
== END ==
PROVIDERS: Family Provider Family Medicine; PCP Family Medicine; Referring Provider Family Medicine; Visit Provider Family Medicine
DX: Z12.31 Encounter for screening mammogram for malignant neoplasm of breast (principal); Z80.3 Family history of malignant neoplasm of breast; R92.333 Mammographic heterogeneous density, bilateral breasts
CPT/HCPCS: 77063; 77067

== ENCOUNTER → 2024-08-15 07:33 | Outpatient (CLI) | payer MEDICARE, OTHER, SELFPAY ==
[2024-08-15 07:47] LABS: Appearance Urine UA CLEAR; Bilirubin Urine UA NEGATIVE (NEGATIVE); Color Urine UA YELLOW; Glucose Urine UA NEGATIVE (Negative); Ketones Urine UA NEGATIVE (NEGATIVE); Leukocyte Esterase Urine UA 2+ (NEGATIVE); Nitrite Urine UA NEGATIVE (Negative); Occult Blood Urine UA NEGATIVE (Negative); Protein Urine UA NEGATIVE (Negative); Urobilinogen Urine UA 0.2 E.U./dL (0.2)
[2024-08-15 07:48] LABS: Urine Volume 10mL (spun)
[2024-08-15 07:50] LABS: Bacteria Urine None Seen; Culture Indicated Urine Specimen Cultured; RBC Urine None Seen (0-5/HPF); Squamous Epithelial Cell Urine 1-5 /HPF (0-5/HPF); WBC Urine 1-5/HPF (0-5/HPF)
[2024-08-15 08:43] LABS: Cholesterol 204 mg/dL (140-199); HDL Cholesterol 89 mg/dL (40-60); LDL Cholesterol Calculated 79 mg/dL (<100); Triglycerides 181 mg/dL (35-150)
== END ==
PROVIDERS: Family Provider Family Medicine; PCP Family Medicine; Referring Provider Family Medicine; Visit Provider Family Medicine
DX: E78.5 Hyperlipidemia, unspecified (principal); R30.0 Dysuria; R39.15 Urgency of urination
CPT/HCPCS: 36415; 80061; 81001; 87086

== ENCOUNTER 2024-12-13 11:30 | Outpatient (RCR) | payer MEDICARE, OTHER, SELFPAY ==
--- NOTE | 2024-11-13 17:00 | PT.OIE ---
Current Diagnoses Other chronic pain (11/13/24) Spondylosis without myelopathy or radiculopathy, lumbar region (11/13/24) Radiculopathy, lumbar region (11/13/24) Radiculopathy, lumbosacral region (11/13/24) Sciatica, right side (11/13/24) Lumbago with sciatica, right side (11/13/24) Past Medical History (Last Reviewed 01/02/24 @ 15:03 by Jarod Reddy MD) Allergic rhinitis Anxiety Bilateral primary osteoarthritis of knee Cataract (2013) Cervical radiculopathy Cervical spondylosis Cervical stenosis of spine Chicken pox Concussion COVID Depressive disorder Diverticulosis Dizziness Essential thrombocythemia Finger fracture, left (2007) Foot pain (2009) Hayfever Hearing loss (2012) Hip pain Hyperlipidemia (12/16/14) Hypertension Hyponatremia EDUAR-2 gene mutation Knee pain Low back pain Lumbar radiculopathy Lumbar spondylosis Measles Meniere's disease (12/16/14) Meniere's disease (1993) Radiculopathy, lumbosacral region Sensation of cold in lower extremity Tinnitus (1993) Tubular adenoma of colon Vertigo (1993) Wrist arthritis Past Surgical History (Last Reviewed 01/02/24 @ 15:03 by Jaord Reddy MD) Anesthesia complication History of orthopedic surgery (2007) Status post hysterectomy (1986) Visit Care Team Role Provider Type Kristyn Prado DO Attending Provider Physician Family Provider Primary Care Provider Referring Provider Specialty: Medical Address: [address] [place] [address], [address], [place], [facility] Email: [email or web address] Physical Therapy Initial Evaluation PT-OP-A Visit Information Start: 11/14/24 07:54 Freq: Status: Active Protocol: Document 11/13/24 17:00 MATERIAL INSPECTOR (Rec: 11/14/24 09:10 MATERIAL INSPECTOR Laptop) Out-Patient Physical Therapy Visit Information Visit Information Visit Type Initial Evaluation Visit Start Time 11:35 Visit Stop Time 12:15 Visit Number 1 Number of UNION REPRESENTATIVE Visits 0 Evaluation Information Evaluation Date 11/13/24 Precautions Precautions N/A PT-OP-B Current Condition Start: 11/14/24 07:54 Freq: Status: Active Protocol: Document 11/13/24 17:00 MATERIAL INSPECTOR (Rec: 11/14/24 09:10 MATERIAL INSPECTOR Laptop) Current Condition History of Current Condition Onset Date Jun 2024 Current Complaints R lumbar pain radiating down RLE to foot History of Current Condition chronic back pain, getting injections for pain control Prior Treatments and Tests sees chiropractor, feels like last session 1 day ago made pain worse PT-OP-C Subjective Start: 11/14/24 07:54 Freq: Status: Active Protocol: Document 11/13/24 17:00 MATERIAL INSPECTOR (Rec: 11/14/24 09:10 MATERIAL INSPECTOR Laptop) Patient Questionnaires Oswestry Low Back Index Oswestry Score 28% OP-PT Pain Assessment Comments Pain Comments Constant 6-7/10 in R lumbar and post RLE down to top of foot. Aggravating: prolonged sitting or laying, laying on R side Relieving: Change of position, standing, walking, ice PT-OP-F Manual Assessment Start: 11/14/24 07:54 Freq: Status: Active Protocol: Document 11/13/24 17:00 MATERIAL INSPECTOR (Rec: 11/14/24 09:10 MATERIAL INSPECTOR Laptop) Manual Assessments Soft Tissue Assessment Soft Tissue Mobility Assessment Decreased soft tissue mobility to R paraspinals at L2-4, decreased soft tissue mobility and TTP to B piriformis with R impairment>L PT-OP-H Neuro Start: 11/14/24 09:11 Freq: Status: Active Protocol: Document 11/13/24 17:00 MATERIAL INSPECTOR (Rec: 11/14/24 09:15 MATERIAL INSPECTOR Laptop) Sensation Evaluation Comments Summary Comments 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 PT-OP-J Posture/Palpation/Skin Start: 11/14/24 09:11 Freq: Status: Active Protocol: Document 11/13/24 17:00 MATERIAL INSPECTOR (Rec: 11/14/24 09:15 MATERIAL INSPECTOR Laptop) Posture Evaluation Comments Posture Comments Sitting: increased cervical lordosis/forward head posture, L shoulder elevated Standing: Pelvic tilt to R with slight R knee flex, RLE slight out toeing PT-OP-K Range of Motion Start: 11/14/24 07:54 Freq: Status: Active Protocol: Document 11/13/24 17:00 MATERIAL INSPECTOR (Rec: 11/14/24 09:10 MATERIAL INSPECTOR Laptop) Hip Goniometric Range of Motion Hip B Comments Supine R hip flex active 115 without onset of pain, L hip flex active 110 active Supine B hip abd WNL Prone active quad length R 80 degrees, 90 degrees both limited by muscle tightness Prone active B hip ext mild muscle length limitation R>L PT-OP-L Special Tests Start: 11/14/24 07:54 Freq: Status: Active Protocol: Document 11/13/24 17:00 MATERIAL INSPECTOR (Rec: 11/14/24 09:10 MATERIAL INSPECTOR Laptop) Special Tests Neural Special Tests- Lower Body SLR Test Results Negative Comments Negative but with mild quad lag B PT-OP-M Strength Start: 11/14/24 07:54 Freq: Status: Active Protocol: Document 11/13/24 17:00 MATERIAL INSPECTOR (Rec: 11/14/24 09:10 MATERIAL INSPECTOR Laptop) Hip Strength Hip Manual Muscle Testing L Flexion (L2) 3+ Fair+ Extension (S1) 3- Fair- Abduction 4 Good External Rotation 3- Fair- R Flexion (L2) 3- Fair- Extension (S1) 2+ Poor+ Abduction 4- Good- External Rotation 3+ Fair+ Knee Strength Knee Manual Muscle Testing L Flexion (S2) 4+ Good+ Extension (L3) 4+ Good+ R Flexion (S2) 4+ Good+ Extension (L3) 4+ Good+ Ankle/Foot Strength Ankle and Foot Manual Muscle Testing L Dorsiflexion (L4) 5 Normal Plantarflexion (S1) 4 Good R Dorsiflexion (L4) 5 Normal Plantarflexion (S1) 4 Good PT-OP-Q Treatments Start: 11/14/24 07:54 Freq: Status: Active Protocol: Document 11/13/24 17:00 MATERIAL INSPECTOR (Rec: 11/14/24 09:10 MATERIAL INSPECTOR Laptop) Therapeutic Exercises Supine Exercises Stretch Supine Exercise Name 1. Single knee to chest 2. Single knee to opposite shoulder Side bilateral Reps/Minutes 30sx3 each B PPT Side bilateral Reps/Minutes 10 Comments post pelvic tilts in hooklying , VC to breath, edu to progress hold 0-5s PT-OP-T Assessment and Plan Start: 11/14/24 07:54 Freq: Status: Active Protocol: Document 11/13/24 17:00 MATERIAL INSPECTOR (Rec: 11/14/24 09:10 MATERIAL INSPECTOR Laptop) Physical Therapy Assessment Rehab Potential Rehabilitation Potential Good Evaluation Complexity Number of Personal Factors/Comorbidities 1-2 Number of Body Systems Impaired 1-2 Clinical Presentation at Evaluation Stable Impairments Impairments Activity Tolerance,Balance, Functional Activities, Functional Mobility,Pain, Posture,ROM,Sensation,Soft Tissue Mobility,Strength Goals 3 Short Term Goal (STG) Pt will demonstrate improved strength of B hip flexion and B hip ext by 1 point for improved function STG Duration 6 weeks Cyber Forensics Analyst Goal (LTG) Pt will demonstrate improved strength of B hip flexion and B hip ext by 2 points for improved function LTG Duration 12 weeks 2 Short Term Goal (STG) Pt will perform squats to low 14 chair x10 consecutive to progress towards goal of working in garden STG Duration 6 weeks Skilled Nursing Goal (LTG) Pt will report improved sitting tolerance in unsupported sitting to 20 mins in order to work in garden LTG Duration 12 weeks 1 Short Term Goal (STG) Pt will improve oswestry low back score from 28% to 25% to improve function STG Duration 6 weeks Skilled Nursing Goal (LTG) Pt will improve oswestry low back score from 28% to 20% to improve function LTG Duration 12 weeks Assessment Summary Assessment Pt presents with pain to R lumbar region and with radiation down RLE to top of foot with impaired activity tolerance of prolonged sitting and laying down to sleep through the night. Pt found to have impaired B hip strength, impaired posture in sitting and standing, soft tissue limitations to B piriformis, and decreased ROM to B quads and hip flexors. Pt will benefit from skilled PT intervention to address deficits and improve functional mobility. Physical Therapy Plan Frequency and Duration Frequency of Treatment 2-3x/wk Duration of treatment (weeks) 12 Plan of Care Start Date 11/13/24 Plan of Care End Date 02/05/25 Therapeutic Interventions Therapeutic Interventions Balance Training,Gait Training ,Home Exercise Program,Manual Therapy,Neuromuscular Re- education,Patient/Caregiver Education,Sensory Integration, Soft Tissue Mobilization, Taping,Therapeutic Activities, Therapeutic Exercises Modalities Cold Pack/Ice Massage,Electric Stimulation,Hot Packs, Traction- Mechanical, Ultrasound Next Visit Focus/Plan Next Note Type Treatment Note Next Visit Plan balance testing, create HEP handout, STM to R piriformis
--- NOTE | 2024-11-13 17:00 | PT.OPPOC ---
Physical, Occupational & Speech Therapy At [facility] Current Diagnoses Other chronic pain (11/13/24) Spondylosis without myelopathy or radiculopathy, lumbar region (11/13/24) Radiculopathy, lumbar region (11/13/24) Radiculopathy, lumbosacral region (11/13/24) Sciatica, right side (11/13/24) Lumbago with sciatica, right side (11/13/24) Visit Care Team Role Provider Type Kristyn Prado DO Attending Provider Physician Family Provider Primary Care Provider Referring Provider Specialty: Medical Address: [address] [place] [address], [address], [place], [address] Email: [email or web address] Plan Of Care PT-OP-B Current Condition Start: 11/14/24 07:54 Freq: Status: Active Protocol: Document 11/13/24 17:00 VP PRODUCT MANAGEMENT (Rec: 11/14/24 09:10 VP PRODUCT MANAGEMENT Laptop) Current Condition History of Current Condition Onset Date Jun 2024 Current Complaints R lumbar pain radiating down RLE to foot History of Current Condition chronic back pain, getting injections for pain control Prior Treatments and Tests sees chiropractor, feels like last session 1 day ago made pain worse PT-OP-T Assessment and Plan Start: 11/14/24 07:54 Freq: Status: Active Protocol: Document 11/13/24 17:00 VP PRODUCT MANAGEMENT (Rec: 11/14/24 09:10 VP PRODUCT MANAGEMENT Laptop) Physical Therapy Assessment Rehab Potential Rehabilitation Potential Good Evaluation Complexity Number of Personal Factors/Comorbidities 1-2 Number of Body Systems Impaired 1-2 Clinical Presentation at Evaluation Stable Impairments Impairments Activity Tolerance,Balance, Functional Activities, Functional Mobility,Pain, Posture,ROM,Sensation,Soft Tissue Mobility,Strength Goals 3 Short Term Goal (STG) Pt will demonstrate improved strength of B hip flexion and B hip ext by 1 point for improved function STG Duration 6 weeks Fur Plucker Goal (LTG) Pt will demonstrate improved strength of B hip flexion and B hip ext by 2 points for improved function LTG Duration 12 weeks 2 Short Term Goal (STG) Pt will perform squats to low 14 chair x10 consecutive to progress towards goal of working in garden STG Duration 6 weeks Assisted Goal (LTG) Pt will report improved sitting tolerance in unsupported sitting to 20 mins in order to work in garden LTG Duration 12 weeks 1 Short Term Goal (STG) Pt will improve oswestry low back score from 28% to 25% to improve function STG Duration 6 weeks Fur Plucker Goal (LTG) Pt will improve oswestry low back score from 28% to 20% to improve function LTG Duration 12 weeks Assessment Summary Assessment Pt presents with pain to R lumbar region and with radiation down RLE to top of foot with impaired activity tolerance of prolonged sitting and laying down to sleep through the night. Pt found to have impaired B hip strength, impaired posture in sitting and standing, soft tissue limitations to B piriformis, and decreased ROM to B quads and hip flexors. Pt will benefit from skilled PT intervention to address deficits and improve functional mobility. Physical Therapy Plan Frequency and Duration Frequency of Treatment 2-3x/wk Duration of treatment (weeks) 12 Plan of Care Start Date 11/13/24 Plan of Care End Date 02/05/25 Therapeutic Interventions Therapeutic Interventions Balance Training,Gait Training ,Home Exercise Program,Manual Therapy,Neuromuscular Re- education,Patient/Caregiver Education,Sensory Integration, Soft Tissue Mobilization, Taping,Therapeutic Activities, Therapeutic Exercises Modalities Cold Pack/Ice Massage,Electric Stimulation,Hot Packs, Traction- Mechanical, Ultrasound Next Visit Focus/Plan Next Note Type Treatment Note Next Visit Plan balance testing, create HEP handout, STM to R piriformis Plan of Care Dates Plan of Care Start Date 11/13/24 Plan of Care End Date 02/05/25 Electronically Signed by: Lynda Hollingsworth PT 11/14/24 3240 If you are in agreement with this Plan of Care, please return a signed and dated copy. I have reviewed this Plan of Care and certify that the skilled therapy services above are required to meet the patient?s needs. Physician Signature Date Printed Name and Credentials Clinical Instructor Signature Printed Name and Credentials
--- NOTE | 2024-11-15 15:44 | PT.OTN ---
Current Diagnoses Other chronic pain (11/15/24) Spondylosis without myelopathy or radiculopathy, lumbar region (11/15/24) Radiculopathy, lumbar region (11/15/24) Radiculopathy, lumbosacral region (11/15/24) Sciatica, right side (11/15/24) Lumbago with sciatica, right side (11/15/24) Physical Therapy Treatment Note PT-OP-A Visit Information Start: 11/14/24 07:54 Freq: Status: Active Protocol: Document 11/15/24 15:14 SECTION GANG (Rec: 11/15/24 15:44 SECTION GANG Laptop) Out-Patient Physical Therapy Visit Information Visit Information Visit Type Treatment Note Visit Start Time 11:35 Visit Stop Time 12:18 Visit Number 2 Number of MUSIC LIBRARY ASSISTANT Visits 0 Evaluation Information Evaluation Date 11/13/24 Precautions Precautions N/A PT-OP-B Current Condition Start: 11/14/24 07:54 Freq: Status: Active Protocol: Document 11/13/24 17:00 SECTION GANG (Rec: 11/14/24 09:10 SECTION GANG Laptop) Current Condition History of Current Condition Onset Date Jun 2024 Current Complaints R lumbar pain radiating down RLE to foot History of Current Condition chronic back pain, getting injections for pain control Prior Treatments and Tests sees chiropractor, feels like last session 1 day ago made pain worse PT-OP-C Subjective Start: 11/14/24 07:54 Freq: Status: Active Protocol: Document 11/15/24 15:14 SECTION GANG (Rec: 11/15/24 15:44 SECTION GANG Laptop) OP-PT Subjective Patient Comments Patient Comments Pt reports she has been able to sleep through the night d/t less pain the night of her PT eval and the night following after she performed her HEP and feels very hopeful. Current pain 4-5/10 in R glute Patient Reported Progress Improving PT-OP-F Manual Assessment Start: 11/14/24 07:54 Freq: Status: Active Protocol: Document 11/13/24 17:00 SECTION GANG (Rec: 11/14/24 09:10 SECTION GANG Laptop) Manual Assessments Soft Tissue Assessment Soft Tissue Mobility Assessment Decreased soft tissue mobility to R paraspinals at L2-4, decreased soft tissue mobility and TTP to B piriformis with R impairment>L PT-OP-H Neuro Start: 11/14/24 09:11 Freq: Status: Active Protocol: Document 11/13/24 17:00 SECTION GANG (Rec: 11/14/24 09:15 SECTION GANG Laptop) Sensation Evaluation Comments Summary Comments 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 PT-OP-J Posture/Palpation/Skin Start: 11/14/24 09:11 Freq: Status: Active Protocol: Document 11/13/24 17:00 SECTION GANG (Rec: 11/14/24 09:15 SECTION GANG Laptop) Posture Evaluation Comments Posture Comments Sitting: increased cervical lordosis/forward head posture, L shoulder elevated Standing: Pelvic tilt to R with slight R knee flex, RLE slight out toeing PT-OP-K Range of Motion Start: 11/14/24 07:54 Freq: Status: Active Protocol: Document 11/13/24 17:00 SECTION GANG (Rec: 11/14/24 09:10 SECTION GANG Laptop) Hip Goniometric Range of Motion Hip B Comments Supine R hip flex active 115 without onset of pain, L hip flex active 110 active Supine B hip abd WNL Prone active quad length R 80 degrees, 90 degrees both limited by muscle tightness Prone active B hip ext mild muscle length limitation R>L PT-OP-L Special Tests Start: 11/14/24 07:54 Freq: Status: Active Protocol: Document 11/13/24 17:00 SECTION GANG (Rec: 11/14/24 09:10 SECTION GANG Laptop) Special Tests Neural Special Tests- Lower Body SLR Test Results Negative Comments Negative but with mild quad lag B PT-OP-M Strength Start: 11/14/24 07:54 Freq: Status: Active Protocol: Document 11/13/24 17:00 SECTION GANG (Rec: 11/14/24 09:10 SECTION GANG Laptop) Hip Strength Hip Manual Muscle Testing L Flexion (L2) 3+ Fair+ Extension (S1) 3- Fair- Abduction 4 Good External Rotation 3- Fair- R Flexion (L2) 3- Fair- Extension (S1) 2+ Poor+ Abduction 4- Good- External Rotation 3+ Fair+ Knee Strength Knee Manual Muscle Testing L Flexion (S2) 4+ Good+ Extension (L3) 4+ Good+ R Flexion (S2) 4+ Good+ Extension (L3) 4+ Good+ Ankle/Foot Strength Ankle and Foot Manual Muscle Testing L Dorsiflexion (L4) 5 Normal Plantarflexion (S1) 4 Good R Dorsiflexion (L4) 5 Normal Plantarflexion (S1) 4 Good PT-OP-Q Treatments Start: 11/14/24 07:54 Freq: Status: Active Protocol: Document 11/15/24 15:14 SECTION GANG (Rec: 11/15/24 15:44 SECTION GANG Laptop) Therapeutic Exercises Supine Exercises Clamshells Supine Exercise Name Hooklying Side bilateral Resistance L2 TB Reps/Minutes 10x2 Comments added to HEP PPT Supine Exercise Name 1. PPT with 10s hold, 2. PPT with hooklying marching Side bilateral Reps/Minutes 1. x10, 2. x10 Comments 1. Able to maintain 10s hold VC for breathing, 2. Difficulty maintaining Sidelying Exercises Clamshells Side right Resistance gravity Reps/Minutes 10x2 Comments TC to post hip to prevent forward roll Standing Exercises Stretch Standing Exercise Name 1. HS, 2. Gastroc Side bilateral Equipment Used 4 stair with HR Reps/Minutes 30sx3 each side each stretch Comments HS stretch added to HEP Manual Therapy Treatment Consent Patient gave verbal consent for manual Yes treatment Soft Tissue Mobilization TFL/ITB Body Location R Mobilization Type Cross-Friction,Myofascial Release Intensity/Depth Superficial Body Position Sidelying Comments very light pressure d/t pain from tightness and trigger points Glute med Body Location R Mobilization Type Cross-Friction,Myofascial Release Intensity/Depth Moderate Body Position Sidelying Comments light to mod pressure d/t pain from tightness and trigger points Piriformis Body Location R Mobilization Type Cross-Friction,Trigger Point Release Intensity/Depth Moderate Body Position Sidelying Comments Light to mod pressure d/t pain from tightness and trigger points PT-OP-T Assessment and Plan Start: 11/14/24 07:54 Freq: Status: Active Protocol: Document 11/15/24 15:14 SECTION GANG (Rec: 11/15/24 15:44 SECTION GANG Laptop) Physical Therapy Assessment Impairments Impairments Activity Tolerance,Balance, Functional Activities, Functional Mobility,Pain, Posture,ROM,Sensation,Soft Tissue Mobility,Strength Goals 3 Short Term Goal (STG) Pt will demonstrate improved strength of B hip flexion and B hip ext by 1 point for improved function STG Duration 6 weeks Chef Instructor Goal (LTG) Pt will demonstrate improved strength of B hip flexion and B hip ext by 2 points for improved function LTG Duration 12 weeks 2 Short Term Goal (STG) Pt will perform squats to low 14 chair x10 consecutive to progress towards goal of working in garden STG Duration 6 weeks Alf Goal (LTG) Pt will report improved sitting tolerance in unsupported sitting to 20 mins in order to work in garden LTG Duration 12 weeks 1 Short Term Goal (STG) Pt will improve oswestry low back score from 28% to 25% to improve function STG Duration 6 weeks Chef Instructor Goal (LTG) Pt will improve oswestry low back score from 28% to 20% to improve function LTG Duration 12 weeks Assessment Summary Assessment Pt participated well with BLE stretching and strengthening, STM to R piriformis/glute med/ ITB with light pressure d/t pain on trigger points and significantly tight fascia, and demonstrated improved core strength and endurance during PPT holds. Physical Therapy Plan Frequency and Duration Frequency of Treatment 2-3x/wk Duration of treatment (weeks) 12 Plan of Care Start Date 11/13/24 Plan of Care End Date 02/05/25 Therapeutic Interventions Therapeutic Interventions Balance Training,Gait Training ,Home Exercise Program,Manual Therapy,Neuromuscular Re- education,Patient/Caregiver Education,Sensory Integration, Soft Tissue Mobilization, Taping,Therapeutic Activities, Therapeutic Exercises Modalities Cold Pack/Ice Massage,Electric Stimulation,Hot Packs, Traction- Mechanical, Ultrasound Next Visit Focus/Plan Next Note Type Treatment Note Next Visit Plan B hip strengthening/standing hip flex/abd/ext exercises, B adductor stretching, standing balance training
--- NOTE | 2024-11-20 13:49 | PT.OTN ---
Current Diagnoses Other chronic pain (11/20/24) Spondylosis without myelopathy or radiculopathy, lumbar region (11/20/24) Radiculopathy, lumbar region (11/20/24) Radiculopathy, lumbosacral region (11/20/24) Sciatica, right side (11/20/24) Lumbago with sciatica, right side (11/20/24) Physical Therapy Treatment Note PT-OP-A Visit Information Start: 11/14/24 07:54 Freq: Status: Active Protocol: Document 11/20/24 13:09 BLENDING SUPERVISOR (Rec: 11/20/24 13:49 BLENDING SUPERVISOR Laptop) Out-Patient Physical Therapy Visit Information Visit Information Visit Type Treatment Note Visit Start Time 13:02 Visit Number 3 Number of COMPRESSED GAS EQUIPMENT MECHANIC Visits 0 Evaluation Information Evaluation Date 11/13/24 Precautions Precautions N/A PT-OP-B Current Condition Start: 11/14/24 07:54 Freq: Status: Active Protocol: Document 11/13/24 17:00 BLENDING SUPERVISOR (Rec: 11/14/24 09:10 BLENDING SUPERVISOR Laptop) Current Condition History of Current Condition Onset Date Jun 2024 Current Complaints R lumbar pain radiating down RLE to foot History of Current Condition chronic back pain, getting injections for pain control Prior Treatments and Tests sees chiropractor, feels like last session 1 day ago made pain worse PT-OP-C Subjective Start: 11/14/24 07:54 Freq: Status: Active Protocol: Document 11/20/24 13:09 BLENDING SUPERVISOR (Rec: 11/20/24 13:49 BLENDING SUPERVISOR Laptop) OP-PT Subjective Patient Comments Patient Comments Pt amb into session reporting current 7/10 pain in R glute when weight bearing. She reports she had a lot of increased original pain after session on Monday and had difficulty sleeping that night d/t pain. 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 PT-OP-J Posture/Palpation/Skin Start: 11/14/24 09:11 Freq: Status: Active Protocol: Document 11/13/24 17:00 BLENDING SUPERVISOR (Rec: 11/14/24 09:15 BLENDING SUPERVISOR Laptop) Posture Evaluation Comments Posture Comments Sitting: increased cervical lordosis/forward head posture, L shoulder elevated Standing: Pelvic tilt to R with slight R knee flex, RLE slight out toeing PT-OP-K Range of Motion Start: 11/14/24 07:54 Freq: Status: Active Protocol: Document 11/13/24 17:00 BLENDING SUPERVISOR (Rec: 11/14/24 09:10 BLENDING SUPERVISOR Laptop) Hip Goniometric Range of Motion Hip B Comments Supine R hip flex active 115 without onset of pain, L hip flex active 110 active Supine B hip abd WNL Prone active quad length R 80 degrees, 90 degrees both limited by muscle tightness Prone active B hip ext mild muscle length limitation R>L PT-OP-L Special Tests Start: 11/14/24 07:54 Freq: Status: Active Protocol: Document 11/13/24 17:00 BLENDING SUPERVISOR (Rec: 11/14/24 09:10 BLENDING SUPERVISOR Laptop) Special Tests Neural Special Tests- Lower Body SLR Test Results Negative Comments Negative but with mild quad lag B PT-OP-M Strength Start: 11/14/24 07:54 Freq: Status: Active Protocol: Document 11/13/24 17:00 BLENDING SUPERVISOR (Rec: 11/14/24 09:10 BLENDING SUPERVISOR Laptop) Hip Strength Hip Manual Muscle Testing L Flexion (L2) 3+ Fair+ Extension (S1) 3- Fair- Abduction 4 Good External Rotation 3- Fair- R Flexion (L2) 3- Fair- Extension (S1) 2+ Poor+ Abduction 4- Good- External Rotation 3+ Fair+ Knee Strength Knee Manual Muscle Testing L Flexion (S2) 4+ Good+ Extension (L3) 4+ Good+ R Flexion (S2) 4+ Good+ Extension (L3) 4+ Good+ Ankle/Foot Strength Ankle and Foot Manual Muscle Testing L Dorsiflexion (L4) 5 Normal Plantarflexion (S1) 4 Good R Dorsiflexion (L4) 5 Normal Plantarflexion (S1) 4 Good PT-OP-Q Treatments Start: 11/14/24 07:54 Freq: Status: Active Protocol: Document 11/20/24 13:09 BLENDING SUPERVISOR (Rec: 11/20/24 13:49 BLENDING SUPERVISOR Laptop) Therapeutic Exercises Supine Exercises PPT Supine Exercise Name 1. PPT with 10s hold 2. PPT with hooklying marching Side bilateral Reps/Minutes 10x2 Comments Hands under low back for self cueing Standing Exercises Hip Ext Side bilateral Equipment Used support surface Reps/Minutes x10 Comments light BUE support Hip Abd Side bilateral Equipment Used support surface Reps/Minutes x10 Comments light BUE support Marching Side bilateral Equipment Used support surface Reps/Minutes x10 Comments light 1 hand support Neuro Re-Education Treatment Balance Activities Stand on Foam Details 1. Static stance 2. Narrow stance 3. Narrow stance eyes closed Surface foam Equipment HRs of stairs as needed Reps/Duration 45s each Comments 1. no sway 2. min sway 3. significant sway but without LOB PT-OP-T Assessment and Plan Start: 11/14/24 07:54 Freq: Status: Active Protocol: Document 11/20/24 13:09 BLENDING SUPERVISOR (Rec: 11/20/24 13:49 BLENDING SUPERVISOR Laptop) Physical Therapy Assessment Impairments Impairments Activity Tolerance,Balance, Functional Activities, Functional Mobility,Pain, Posture,ROM,Sensation,Soft Tissue Mobility,Strength Goals 3 Short Term Goal (STG) Pt will demonstrate improved strength of B hip flexion and B hip ext by 1 point for improved function STG Duration 6 weeks Strategic Account Manager Goal (LTG) Pt will demonstrate improved strength of B hip flexion and B hip ext by 2 points for improved function LTG Duration 12 weeks 2 Short Term Goal (STG) Pt will perform squats to low 14 chair x10 consecutive to progress towards goal of working in garden STG Duration 6 weeks Strategic Account Manager Goal (LTG) Pt will report improved sitting tolerance in unsupported sitting to 20 mins in order to work in garden LTG Duration 12 weeks 1 Short Term Goal (STG) Pt will improve oswestry low back score from 28% to 25% to improve function STG Duration 6 weeks Strategic Account Manager Goal (LTG) Pt will improve oswestry low back score from 28% to 20% to improve function LTG Duration 12 weeks Progress Towards Goals Progress Towards Goals Progressing Toward Goals Assessment Summary Assessment No manual therapy or HS/ gastroc stretching performed this session d/t pain after last session. Pt demonstrated improvement in breathing during PPT hold and added PPT hold with hooklying marching to HEP. Pt also tolerated standing hip exercises and static standing balance training well with significant sway with eyes closed. Physical Therapy Plan Frequency and Duration Frequency of Treatment 2-3x/wk Duration of treatment (weeks) 12 Plan of Care Start Date 11/13/24 Plan of Care End Date 02/05/25 Therapeutic Interventions Therapeutic Interventions Balance Training,Gait Training ,Home Exercise Program,Manual Therapy,Neuromuscular Re- education,Patient/Caregiver Education,Sensory Integration, Soft Tissue Mobilization, Taping,Therapeutic Activities, Therapeutic Exercises Modalities Cold Pack/Ice Massage,Electric Stimulation,Hot Packs, Traction- Mechanical, Ultrasound Next Visit Focus/Plan Next Note Type Treatment Note Next Visit Plan B hip strengthening/standing hip flex/abd/ext exercises, B adductor stretching, standing balance training
--- NOTE | 2024-11-22 17:44 | PT.OTN ---
Current Diagnoses Other chronic pain (11/22/24) Spondylosis without myelopathy or radiculopathy, lumbar region (11/22/24) Radiculopathy, lumbar region (11/22/24) Radiculopathy, lumbosacral region (11/22/24) Sciatica, right side (11/22/24) Lumbago with sciatica, right side (11/22/24) Physical Therapy Treatment Note PT-OP-A Visit Information Start: 11/14/24 07:54 Freq: Status: Active Protocol: Document 11/22/24 12:21 LINING CUTTER (Rec: 11/22/24 17:44 LINING CUTTER Laptop) Out-Patient Physical Therapy Visit Information Visit Information Visit Type Treatment Note Visit Start Time 13:50 Visit Stop Time 14:32 Visit Number 4 Number of CONVENTIONS RESERVATIONIST Visits 0 Evaluation Information Evaluation Date 11/13/24 Precautions Precautions N/A PT-OP-B Current Condition Start: 11/14/24 07:54 Freq: Status: Active Protocol: Document 11/13/24 17:00 LINING CUTTER (Rec: 11/14/24 09:10 LINING CUTTER Laptop) Current Condition History of Current Condition Onset Date Jun 2024 Current Complaints R lumbar pain radiating down RLE to foot History of Current Condition chronic back pain, getting injections for pain control Prior Treatments and Tests sees chiropractor, feels like last session 1 day ago made pain worse PT-OP-C Subjective Start: 11/14/24 07:54 Freq: Status: Active Protocol: Document 11/22/24 12:21 LINING CUTTER (Rec: 11/22/24 17:44 LINING CUTTER Laptop) OP-PT Subjective Patient Comments Patient Comments Pt reports increased pain after last session continued into today with pain when walking on RLE 8/10 radiating down just under butt cheek. 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 PT-OP-J Posture/Palpation/Skin Start: 11/14/24 09:11 Freq: Status: Active Protocol: Document 11/13/24 17:00 LINING CUTTER (Rec: 11/14/24 09:15 LINING CUTTER Laptop) Posture Evaluation Comments Posture Comments Sitting: increased cervical lordosis/forward head posture, L shoulder elevated Standing: Pelvic tilt to R with slight R knee flex, RLE slight out toeing PT-OP-K Range of Motion Start: 11/14/24 07:54 Freq: Status: Active Protocol: Document 11/13/24 17:00 LINING CUTTER (Rec: 11/14/24 09:10 LINING CUTTER Laptop) Hip Goniometric Range of Motion Hip B Comments Supine R hip flex active 115 without onset of pain, L hip flex active 110 active Supine B hip abd WNL Prone active quad length R 80 degrees, 90 degrees both limited by muscle tightness Prone active B hip ext mild muscle length limitation R>L PT-OP-L Special Tests Start: 11/14/24 07:54 Freq: Status: Active Protocol: Document 11/13/24 17:00 LINING CUTTER (Rec: 11/14/24 09:10 LINING CUTTER Laptop) Special Tests Neural Special Tests- Lower Body SLR Test Results Negative Comments Negative but with mild quad lag B PT-OP-M Strength Start: 11/14/24 07:54 Freq: Status: Active Protocol: Document 11/13/24 17:00 LINING CUTTER (Rec: 11/14/24 09:10 LINING CUTTER Laptop) Hip Strength Hip Manual Muscle Testing L Flexion (L2) 3+ Fair+ Extension (S1) 3- Fair- Abduction 4 Good External Rotation 3- Fair- R Flexion (L2) 3- Fair- Extension (S1) 2+ Poor+ Abduction 4- Good- External Rotation 3+ Fair+ Knee Strength Knee Manual Muscle Testing L Flexion (S2) 4+ Good+ Extension (L3) 4+ Good+ R Flexion (S2) 4+ Good+ Extension (L3) 4+ Good+ Ankle/Foot Strength Ankle and Foot Manual Muscle Testing L Dorsiflexion (L4) 5 Normal Plantarflexion (S1) 4 Good R Dorsiflexion (L4) 5 Normal Plantarflexion (S1) 4 Good PT-OP-Q Treatments Start: 11/14/24 07:54 Freq: Status: Active Protocol: Document 11/22/24 12:21 LINING CUTTER (Rec: 11/22/24 17:44 LINING CUTTER Laptop) Manual Therapy Treatment Consent Patient gave verbal consent for manual Yes treatment Soft Tissue Mobilization TFL/ITB Body Location R Mobilization Type Myofascial Release,Rolling Intensity/Depth Superficial Body Position Sidelying Comments origin towards insertion, very light pressure d/t pain from tightness Glute med Body Location R Mobilization Type Myofascial Release,Rolling Intensity/Depth Superficial Body Position Sidelying Comments light to mod pressure d/t pain from tightness and trigger points Piriformis Body Location R Mobilization Type Myofascial Release,Rolling, Strain/Counterstrain Intensity/Depth Superficial Body Position Sidelying Comments Light to mod pressure d/t pain from tightness and trigger points, SCS performed in prone PT-OP-T Assessment and Plan Start: 11/14/24 07:54 Freq: Status: Active Protocol: Document 11/22/24 12:21 LINING CUTTER (Rec: 11/22/24 17:44 LINING CUTTER Laptop) Physical Therapy Assessment Impairments Impairments Activity Tolerance,Balance, Functional Activities, Functional Mobility,Pain, Posture,ROM,Sensation,Soft Tissue Mobility,Strength Goals 3 Short Term Goal (STG) Pt will demonstrate improved strength of B hip flexion and B hip ext by 1 point for improved function STG Duration 6 weeks Interactive Digital Media Specialist Goal (LTG) Pt will demonstrate improved strength of B hip flexion and B hip ext by 2 points for improved function LTG Duration 12 weeks 2 Short Term Goal (STG) Pt will perform squats to low 14 chair x10 consecutive to progress towards goal of working in garden STG Duration 6 weeks Interactive Digital Media Specialist Goal (LTG) Pt will report improved sitting tolerance in unsupported sitting to 20 mins in order to work in garden LTG Duration 12 weeks 1 Short Term Goal (STG) Pt will improve oswestry low back score from 28% to 25% to improve function STG Duration 6 weeks Interactive Digital Media Specialist Goal (LTG) Pt will improve oswestry low back score from 28% to 20% to improve function LTG Duration 12 weeks Progress Towards Goals Progress Towards Goals Slow Progress - Other Progress Comments d/t increased pain Assessment Summary Assessment Light manual therapy only without exercises d/t increased pain to R glute/ lumbar with radiation down to under gluteal fold and focus on session is to reduce pain. Pt tolerated manual therapy with significant trigger points found in R piriformis and tolerated SCS method well. Pt reports pain at end of session is same as when walking in, however observed slight increased stance time on RLE. Physical Therapy Plan Frequency and Duration Frequency of Treatment 2-3x/wk Duration of treatment (weeks) 12 Plan of Care Start Date 11/13/24 Plan of Care End Date 02/05/25 Therapeutic Interventions Therapeutic Interventions Balance Training,Gait Training ,Home Exercise Program,Manual Therapy,Neuromuscular Re- education,Patient/Caregiver Education,Sensory Integration, Soft Tissue Mobilization, Taping,Therapeutic Activities, Therapeutic Exercises Modalities Cold Pack/Ice Massage,Electric Stimulation,Hot Packs, Traction- Mechanical, Ultrasound Next Visit Focus/Plan Next Note Type Treatment Note Next Visit Plan R standing ITB stretch, strain -counterstrain to R piriformis , gentle hip strengthening as tolerated
--- NOTE | 2024-11-27 11:45 | PT.OTN ---
Current Diagnoses Other chronic pain (11/27/24) Spondylosis without myelopathy or radiculopathy, lumbar region (11/27/24) Radiculopathy, lumbar region (11/27/24) Radiculopathy, lumbosacral region (11/27/24) Sciatica, right side (11/27/24) Lumbago with sciatica, right side (11/27/24) Physical Therapy Treatment Note PT-OP-A Visit Information Start: 11/14/24 07:54 Freq: Status: Active Protocol: Document 11/22/24 12:21 WARE CARRIER (Rec: 11/22/24 17:44 WARE CARRIER Laptop) Out-Patient Physical Therapy Visit Information Visit Information Visit Type Treatment Note Visit Start Time 13:50 Visit Stop Time 14:32 Visit Number 4 Number of CORE WINDER MACHINE OPERATOR Visits 0 Evaluation Information Evaluation Date 11/13/24 Precautions Precautions N/A PT-OP-B Current Condition Start: 11/14/24 07:54 Freq: Status: Active Protocol: Document 11/13/24 17:00 WARE CARRIER (Rec: 11/14/24 09:10 WARE CARRIER Laptop) Current Condition History of Current Condition Onset Date Jun 2024 Current Complaints R lumbar pain radiating down RLE to foot History of Current chronic back pain, getting injections for pain control Condition Prior Treatments and sees chiropractor, feels like last session 1 day ago Tests made pain worse PT-OP-C Subjective Start: 11/14/24 07:54 Freq: Status: Active Protocol: Document 11/22/24 12:21 WARE CARRIER (Rec: 11/22/24 17:44 WARE CARRIER Laptop) OP-PT Subjective Patient Comments Patient Comments Pt reports increased pain after last session continued into today with pain when walking on RLE 8/10 radiating down just under butt cheek. 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 PT-OP-J Posture/Palpation/Skin Start: 11/14/24 09:11 Freq: Status: Active Protocol: Document 11/13/24 17:00 WARE CARRIER (Rec: 11/14/24 09:15 WARE CARRIER Laptop) Posture Evaluation Comments Posture Comments Sitting: increased cervical lordosis/forward head posture, L shoulder elevated Standing: Pelvic tilt to R with slight R knee flex, RLE slight out toeing PT-OP-K Range of Motion Start: 11/14/24 07:54 Freq: Status: Active Protocol: Document 11/13/24 17:00 WARE CARRIER (Rec: 11/14/24 09:10 WARE CARRIER Laptop) Hip Goniometric Range of Motion Hip B Comments Supine R hip flex active 115 without onset of pain, L hip flex active 110 active Supine B hip abd WNL Prone active quad length R 80 degrees, 90 degrees both limited by muscle tightness Prone active B hip ext mild muscle length limitation R> L PT-OP-L Special Tests Start: 11/14/24 07:54 Freq: Status: Active Protocol: Document 11/13/24 17:00 WARE CARRIER (Rec: 11/14/24 09:10 WARE CARRIER Laptop) Special Tests Neural Special Tests- Lower Body SLR Test Results Negative Comments Negative but with mild quad lag B PT-OP-M Strength Start: 11/14/24 07:54 Freq: Status: Active Protocol: Document 11/13/24 17:00 WARE CARRIER (Rec: 11/14/24 09:10 WARE CARRIER Laptop) Hip Strength Hip Manual Muscle Testing L Flexion (L2) 3+ Fair+ Extension (S1) 3- Fair- Abduction 4 Good External Rotation 3- Fair- R Flexion (L2) 3- Fair- Extension (S1) 2+ Poor+ Abduction 4- Good- External Rotation 3+ Fair+ Knee Strength Knee Manual Muscle Testing L Flexion (S2) 4+ Good+ Extension (L3) 4+ Good+ R Flexion (S2) 4+ Good+ Extension (L3) 4+ Good+ Ankle/Foot Strength Ankle and Foot Manual Muscle Testing L Dorsiflexion (L4) 5 Normal Plantarflexion (S1) 4 Good R Dorsiflexion (L4) 5 Normal Plantarflexion (S1) 4 Good PT-OP-Q Treatments Start: 11/14/24 07:54 Freq: Status: Active Protocol: Document 11/22/24 12:21 WARE CARRIER (Rec: 11/22/24 17:44 WARE CARRIER Laptop) Manual Therapy Treatment Consent Patient gave verbal Yes consent for manual treatment Soft Tissue Mobilization TFL/ITB Body Location R Mobilization Type Myofascial Release,Rolling Intensity/Depth Superficial Body Position Sidelying Comments origin towards insertion, very light pressure d/t pain from tightness Glute med Body Location R Mobilization Type Myofascial Release,Rolling Intensity/Depth Superficial Body Position Sidelying Comments light to mod pressure d/t pain from tightness and trigger points Piriformis Body Location R Mobilization Type Myofascial Release,Rolling,Strain/Counterstrain Intensity/Depth Superficial Body Position Sidelying Comments Light to mod pressure d/t pain from tightness and trigger points, SCS performed in prone PT-OP-T Assessment and Plan Start: 11/14/24 07:54 Freq: Status: Active Protocol: Document 11/22/24 12:21 WARE CARRIER (Rec: 11/22/24 17:44 WARE CARRIER Laptop) Physical Therapy Assessment Impairments Impairments Activity Tolerance,Balance,Functional Activities, Functional Mobility,Pain,Posture,ROM,Sensation,Soft Tissue Mobility,Strength Goals 3 Short Term Goal (STG Pt will demonstrate improved strength of B hip flexion ) and B hip ext by 1 point for improved function STG Duration 6 weeks Weatherization And Housing Inspector Goal (LTG) Pt will demonstrate improved strength of B hip flexion and B hip ext by 2 points for improved function LTG Duration 12 weeks 2 Short Term Goal (STG Pt will perform squats to low 14 chair x10 consecutive ) to progress towards goal of working in garden STG Duration 6 weeks Intermediate Goal (LTG) Pt will report improved sitting tolerance in unsupported sitting to 20 mins in order to work in garden LTG Duration 12 weeks 1 Short Term Goal (STG Pt will improve oswestry low back score from 28% to 25% ) to improve function STG Duration 6 weeks Intermediate Goal (LTG) Pt will improve oswestry low back score from 28% to 20% to improve function LTG Duration 12 weeks Progress Towards Goals Progress Towards Slow Progress - Other Goals Progress Comments d/t increased pain Assessment Summary Assessment Light manual therapy only without exercises d/t increased pain to R glute/lumbar with radiation down to under gluteal fold and focus on session is to reduce pain. Pt tolerated manual therapy with significant trigger points found in R piriformis and tolerated SCS method well. Pt reports pain at end of session is same as when walking in, however observed slight increased stance time on RLE. Physical Therapy Plan Frequency and Duration Frequency of 2-3x/wk Treatment Duration of 12 treatment (weeks) Plan of Care Start 11/13/24 Date Plan of Care End 02/05/25 Date Therapeutic Interventions Therapeutic Balance Training,Gait Training,Home Exercise Program, Interventions Manual Therapy,Neuromuscular Re-education,Patient/ Caregiver Education,Sensory Integration,Soft Tissue Mobilization,Taping,Therapeutic Activities,Therapeutic Exercises Modalities Cold Pack/Ice Massage,Electric Stimulation,Hot Packs, Traction- Mechanical,Ultrasound Next Visit Focus/Plan Next Note Type Treatment Note Next Visit Plan R standing ITB stretch, strain-counterstrain to R piriformis, gentle hip strengthening as tolerated
--- NOTE | 2024-11-27 11:46 | PT.OTN ---
Current Diagnoses Other chronic pain (11/27/24) Spondylosis without myelopathy or radiculopathy, lumbar region (11/27/24) Radiculopathy, lumbar region (11/27/24) Radiculopathy, lumbosacral region (11/27/24) Sciatica, right side (11/27/24) Lumbago with sciatica, right side (11/27/24) Physical Therapy Treatment Note PT-OP-A Visit Information Start: 11/14/24 07:54 Freq: Status: Active Protocol: Document 11/27/24 10:49 AB (Rec: 11/27/24 11:46 AB Laptop) Out-Patient Physical Therapy Visit Information Visit Information Visit Type Treatment Note Visit Start Time 10:50 Visit Stop Time 11:34 Visit Number 5 (PN due by 12/13/2024 ) Number of SPINNING MULE TENDER Visits 1 Evaluation Information Evaluation Date 11/13/24 Precautions Precautions N/A PT-OP-B Current Condition Start: 11/14/24 07:54 Freq: Status: Active Protocol: Document 11/13/24 17:00 COLOR LABORATORY TECHNICIAN (Rec: 11/14/24 09:10 COLOR LABORATORY TECHNICIAN Laptop) Current Condition History of Current Condition Onset Date Jun 2024 Current Complaints R lumbar pain radiating down RLE to foot History of Current chronic back pain, getting injections for pain control Condition Prior Treatments and sees chiropractor, feels like last session 1 day ago Tests made pain worse PT-OP-C Subjective Start: 11/14/24 07:54 Freq: Status: Active Protocol: Document 11/27/24 10:49 AB (Rec: 11/27/24 11:46 AB Laptop) OP-PT Subjective Patient Comments Patient Comments Patient reports she was better by Monday (was more sore on Monday, had to use a cane) Patient reports today she is about the same as when she started, also that she did a lot of work outside yesterday. Patient rates R glute to prox post LE 510 ambulating into session without device. PT-OP-F Manual Assessment Start: 11/14/24 07:54 Freq: Status: Active Protocol: Document 11/13/24 17:00 COLOR LABORATORY TECHNICIAN (Rec: 11/14/24 09:10 COLOR LABORATORY TECHNICIAN Laptop) Manual Assessments Soft Tissue Assessment Soft Tissue Mobility Decreased soft tissue mobility to R paraspinals at L2-4 Assessment , decreased soft tissue mobility and TTP to B piriformis with R impairment>L PT-OP-H Neuro Start: 11/14/24 09:11 Freq: Status: Active Protocol: Document 11/13/24 17:00 COLOR LABORATORY TECHNICIAN (Rec: 11/14/24 09:15 COLOR LABORATORY TECHNICIAN Laptop) Sensation Evaluation Comments Summary Comments 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 PT-OP-J Posture/Palpation/Skin Start: 11/14/24 09:11 Freq: Status: Active Protocol: Document 11/13/24 17:00 COLOR LABORATORY TECHNICIAN (Rec: 11/14/24 09:15 COLOR LABORATORY TECHNICIAN Laptop) Posture Evaluation Comments Posture Comments Sitting: increased cervical lordosis/forward head posture, L shoulder elevated Standing: Pelvic tilt to R with slight R knee flex, RLE slight out toeing PT-OP-K Range of Motion Start: 11/14/24 07:54 Freq: Status: Active Protocol: Document 11/13/24 17:00 COLOR LABORATORY TECHNICIAN (Rec: 11/14/24 09:10 COLOR LABORATORY TECHNICIAN Laptop) Hip Goniometric Range of Motion Hip B Comments Supine R hip flex active 115 without onset of pain, L hip flex active 110 active Supine B hip abd WNL Prone active quad length R 80 degrees, 90 degrees both limited by muscle tightness Prone active B hip ext mild muscle length limitation R> L PT-OP-L Special Tests Start: 11/14/24 07:54 Freq: Status: Active Protocol: Document 11/13/24 17:00 COLOR LABORATORY TECHNICIAN (Rec: 11/14/24 09:10 COLOR LABORATORY TECHNICIAN Laptop) Special Tests Neural Special Tests- Lower Body SLR Test Results Negative Comments Negative but with mild quad lag B PT-OP-M Strength Start: 11/14/24 07:54 Freq: Status: Active Protocol: Document 11/13/24 17:00 COLOR LABORATORY TECHNICIAN (Rec: 11/14/24 09:10 COLOR LABORATORY TECHNICIAN Laptop) Hip Strength Hip Manual Muscle Testing L Flexion (L2) 3+ Fair+ Extension (S1) 3- Fair- Abduction 4 Good External Rotation 3- Fair- R Flexion (L2) 3- Fair- Extension (S1) 2+ Poor+ Abduction 4- Good- External Rotation 3+ Fair+ Knee Strength Knee Manual Muscle Testing L Flexion (S2) 4+ Good+ Extension (L3) 4+ Good+ R Flexion (S2) 4+ Good+ Extension (L3) 4+ Good+ Ankle/Foot Strength Ankle and Foot Manual Muscle Testing L Dorsiflexion (L4) 5 Normal Plantarflexion (S1) 4 Good R Dorsiflexion (L4) 5 Normal Plantarflexion (S1) 4 Good PT-OP-Q Treatments Start: 11/14/24 07:54 Freq: Status: Active Protocol: Document 11/27/24 10:49 AB (Rec: 11/27/24 11:46 AB Laptop) Therapeutic Exercises Supine Exercises Clamshells Side right Reps/Minutes X 4 Comments Patient initiated post commenting she did not want to perform these Stretch Supine Exercise Name Single knee to opposite shoulder Side bilateral Reps/Minutes 30sx3 each B Sidelying Exercises Reverse clamshell Sidelying Exercise AROM HEP Name Reps/Minutes X 15 X 2 each side Comments verbal and tactile cues Clamshells Side right Resistance gravity Reps/Minutes X 4 Comments Patient initiated post commenting she did not want to do this ex, remindePt Therapeutic Activity Therapeutic Activity Log roll Comments verbal cues and visual cues Gait Training Gait Activity ambulation without device Distance/Duration one-2 min Comments Patient made aware of R LE position IE positioned in ER with ambulation and stands in ER R>L when stopped and standing still. verbal cues to walk with heel toe pattern Manual Therapy Treatment Consent Patient gave verbal Yes consent for manual treatment Soft Tissue Mobilization Glute med Body Location R Mobilization Type Cross-Friction,Myofascial Release,Rolling Intensity/Depth Moderate Body Position Sidelying Comments and superficial Piriformis Body Location R Mobilization Type Cross-Friction,Manual Lymphatic Drainage,Myofascial Release,Rolling Intensity/Depth Moderate Body Position Sidelying Comments and superficial PT-OP-T Assessment and Plan Start: 11/14/24 07:54 Freq: Status: Active Protocol: Document 11/27/24 10:49 AB (Rec: 11/27/24 11:46 AB Laptop) Physical Therapy Plan Frequency and Duration Frequency of 2-3x/wk Treatment Duration of 12 treatment (weeks) Plan of Care Start 11/13/24 Plan of Care End 02/05/25 Date Therapeutic Interventions Therapeutic Balance Training,Gait Training,Home Exercise Program, Interventions Manual Therapy,Neuromuscular Re-education,Patient/ Caregiver Education,Sensory Integration,Soft Tissue Mobilization,Taping,Therapeutic Activities,Therapeutic Exercises Modalities Cold Pack/Ice Massage,Electric Stimulation,Hot Packs, Traction- Mechanical,Ultrasound Next Visit Focus/Plan Next Note Type Treatment Note Next Visit Plan R standing ITB stretch, strain-counterstrain to R piriformis, gentle hip strengthening as tolerated
--- NOTE | 2024-11-29 12:46 | PT.OTN ---
Current Diagnoses Other chronic pain (11/29/24) Spondylosis without myelopathy or radiculopathy, lumbar region (11/29/24) Radiculopathy, lumbar region (11/29/24) Radiculopathy, lumbosacral region (11/29/24) Sciatica, right side (11/29/24) Lumbago with sciatica, right side (11/29/24) Physical Therapy Treatment Note PT-OP-A Visit Information Start: 11/14/24 07:54 Freq: Status: Active Protocol: Document 11/29/24 11:32 EXHIBIT BUILDER (Rec: 11/29/24 12:46 EXHIBIT BUILDER Laptop) Out-Patient Physical Therapy Visit Information Visit Information Visit Type Treatment Note Visit Start Time 11:30 Visit Stop Time 12:19 Visit Number 6 Number of SATELLITE DISH INSTALLER Visits 0 Evaluation Information Evaluation Date 11/13/24 Precautions Precautions N/A PT-OP-B Current Condition Start: 11/14/24 07:54 Freq: Status: Active Protocol: Document 11/13/24 17:00 EXHIBIT BUILDER (Rec: 11/14/24 09:10 EXHIBIT BUILDER Laptop) Current Condition History of Current Condition Onset Date Jun 2024 Current Complaints R lumbar pain radiating down RLE to foot History of Current chronic back pain, getting injections for pain control Condition Prior Treatments and sees chiropractor, feels like last session 1 day ago Tests made pain worse PT-OP-C Subjective Start: 11/14/24 07:54 Freq: Status: Active Protocol: Document 11/29/24 11:32 EXHIBIT BUILDER (Rec: 11/29/24 12:46 EXHIBIT BUILDER Laptop) OP-PT Subjective Patient Comments Patient Comments Pt reports increased pain after working in garden with bending over and had a lot of increased pain last night and this morning but at this time it feels better after taking alieve and at a 5/10 pain in back. 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 PT-OP-J Posture/Palpation/Skin Start: 11/14/24 09:11 Freq: Status: Active Protocol: Document 11/13/24 17:00 EXHIBIT BUILDER (Rec: 11/14/24 09:15 EXHIBIT BUILDER Laptop) Posture Evaluation Comments Posture Comments Sitting: increased cervical lordosis/forward head posture, L shoulder elevated Standing: Pelvic tilt to R with slight R knee flex, RLE slight out toeing PT-OP-K Range of Motion Start: 11/14/24 07:54 Freq: Status: Active Protocol: Document 11/13/24 17:00 EXHIBIT BUILDER (Rec: 11/14/24 09:10 EXHIBIT BUILDER Laptop) Hip Goniometric Range of Motion Hip B Comments Supine R hip flex active 115 without onset of pain, L hip flex active 110 active Supine B hip abd WNL Prone active quad length R 80 degrees, 90 degrees both limited by muscle tightness Prone active B hip ext mild muscle length limitation R> L PT-OP-L Special Tests Start: 11/14/24 07:54 Freq: Status: Active Protocol: Document 11/13/24 17:00 EXHIBIT BUILDER (Rec: 11/14/24 09:10 EXHIBIT BUILDER Laptop) Special Tests Neural Special Tests- Lower Body SLR Test Results Negative Comments Negative but with mild quad lag B PT-OP-M Strength Start: 11/14/24 07:54 Freq: Status: Active Protocol: Document 11/13/24 17:00 EXHIBIT BUILDER (Rec: 11/14/24 09:10 EXHIBIT BUILDER Laptop) Hip Strength Hip Manual Muscle Testing L Flexion (L2) 3+ Fair+ Extension (S1) 3- Fair- Abduction 4 Good External Rotation 3- Fair- R Flexion (L2) 3- Fair- Extension (S1) 2+ Poor+ Abduction 4- Good- External Rotation 3+ Fair+ Knee Strength Knee Manual Muscle Testing L Flexion (S2) 4+ Good+ Extension (L3) 4+ Good+ R Flexion (S2) 4+ Good+ Extension (L3) 4+ Good+ Ankle/Foot Strength Ankle and Foot Manual Muscle Testing L Dorsiflexion (L4) 5 Normal Plantarflexion (S1) 4 Good R Dorsiflexion (L4) 5 Normal Plantarflexion (S1) 4 Good PT-OP-Q Treatments Start: 11/14/24 07:54 Freq: Status: Active Protocol: Document 11/29/24 11:32 EXHIBIT BUILDER (Rec: 11/29/24 12:46 EXHIBIT BUILDER Laptop) Therapeutic Exercises Supine Exercises Stretch Supine Exercise Name Single knee to opposite shoulder Reps/Minutes x30s B Comments pt reports this may be making back pain feel worse PPT Side bilateral Reps/Minutes x10 Comments 10s hold Sitting Exercises Nerve Flossing Side right Reps/Minutes x10 Comments Seated with ext knee and ankle pumps, added to HEP Pelvis Mobility Sitting Exercise 1. Ant-post tilts 2. R-L tilts 3. Clock face Name Equipment Used air disk for feedback Reps/Minutes 10x3 each direction Comments Added to HEP Manual Therapy Treatment Consent Patient gave verbal Yes consent for manual treatment Soft Tissue Mobilization HS Body Location R Mobilization Type Myofascial Release,Rolling Intensity/Depth Moderate Body Position L sidelying Comments Focus on proximal HS PT-OP-T Assessment and Plan Start: 11/14/24 07:54 Freq: Status: Active Protocol: Document 11/29/24 11:32 EXHIBIT BUILDER (Rec: 11/29/24 12:46 EXHIBIT BUILDER Laptop) Physical Therapy Assessment Progress Towards Goals Progress Towards Slow Progress - Other Goals Assessment Summary Assessment Focus this session was on pelvis/lumbar mobility, posture for bending, and R HS mobility and nerve flossing. New HEP given and instructed to avoid knee to chest stretches, walking for activity, and bending forward without bending knees (aggravating factors) over the weekend. Physical Therapy Plan Next Visit Focus/Plan Next Note Type Treatment Note Next Visit Plan Review HEP, R sciatic nerve flossing adding head nods, MT to R prox HS, spinal mobility, mini squats
--- NOTE | 2024-12-04 10:47 | PT.OTN ---
Current Diagnoses Other chronic pain (12/04/24) Spondylosis without myelopathy or radiculopathy, lumbar region (12/04/24) Radiculopathy, lumbar region (12/04/24) Radiculopathy, lumbosacral region (12/04/24) Sciatica, right side (12/04/24) Lumbago with sciatica, right side (12/04/24) Physical Therapy Treatment Note PT-OP-A Visit Information Start: 11/14/24 07:54 Freq: Status: Active Protocol: Document 12/04/24 10:00 FIRE PATROL (Rec: 12/04/24 10:47 FIRE PATROL Laptop) Out-Patient Physical Therapy Visit Information Visit Information Visit Type Treatment Note Visit Start Time 09:55 Visit Stop Time 10:33 Visit Number 7 Number of LUGGAGE ATTENDANT Visits 0 Evaluation Information Evaluation Date 11/13/24 Precautions Precautions N/A PT-OP-B Current Condition Start: 11/14/24 07:54 Freq: Status: Active Protocol: Document 11/13/24 17:00 FIRE PATROL (Rec: 11/14/24 09:10 FIRE PATROL Laptop) Current Condition History of Current Condition Onset Date Jun 2024 Current Complaints R lumbar pain radiating down RLE to foot History of Current chronic back pain, getting injections for pain control Condition Prior Treatments and sees chiropractor, feels like last session 1 day ago Tests made pain worse PT-OP-C Subjective Start: 11/14/24 07:54 Freq: Status: Active Protocol: Document 12/04/24 10:00 FIRE PATROL (Rec: 12/04/24 10:47 FIRE PATROL Laptop) OP-PT Subjective Patient Comments Patient Comments Pt reports increased pain in R low back after assisting spouse with moving a plant involving bending and light lifting, she rested and it felt better. She reports this morning she felt really good but pain returned after walking around. Pain currently at 4-5/10 pain to R lumbar. 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 PT-OP-J Posture/Palpation/Skin Start: 11/14/24 09:11 Freq: Status: Active Protocol: Document 11/13/24 17:00 FIRE PATROL (Rec: 11/14/24 09:15 FIRE PATROL Laptop) Posture Evaluation Comments Posture Comments Sitting: increased cervical lordosis/forward head posture, L shoulder elevated Standing: Pelvic tilt to R with slight R knee flex, RLE slight out toeing PT-OP-K Range of Motion Start: 11/14/24 07:54 Freq: Status: Active Protocol: Document 11/13/24 17:00 FIRE PATROL (Rec: 11/14/24 09:10 FIRE PATROL Laptop) Hip Goniometric Range of Motion Hip B Comments Supine R hip flex active 115 without onset of pain, L hip flex active 110 active Supine B hip abd WNL Prone active quad length R 80 degrees, 90 degrees both limited by muscle tightness Prone active B hip ext mild muscle length limitation R> L PT-OP-L Special Tests Start: 11/14/24 07:54 Freq: Status: Active Protocol: Document 11/13/24 17:00 FIRE PATROL (Rec: 11/14/24 09:10 FIRE PATROL Laptop) Special Tests Neural Special Tests- Lower Body SLR Test Results Negative Comments Negative but with mild quad lag B PT-OP-M Strength Start: 11/14/24 07:54 Freq: Status: Active Protocol: Document 11/13/24 17:00 FIRE PATROL (Rec: 11/14/24 09:10 FIRE PATROL Laptop) Hip Strength Hip Manual Muscle Testing L Flexion (L2) 3+ Fair+ Extension (S1) 3- Fair- Abduction 4 Good External Rotation 3- Fair- R Flexion (L2) 3- Fair- Extension (S1) 2+ Poor+ Abduction 4- Good- External Rotation 3+ Fair+ Knee Strength Knee Manual Muscle Testing L Flexion (S2) 4+ Good+ Extension (L3) 4+ Good+ R Flexion (S2) 4+ Good+ Extension (L3) 4+ Good+ Ankle/Foot Strength Ankle and Foot Manual Muscle Testing L Dorsiflexion (L4) 5 Normal Plantarflexion (S1) 4 Good R Dorsiflexion (L4) 5 Normal Plantarflexion (S1) 4 Good PT-OP-Q Treatments Start: 11/14/24 07:54 Freq: Status: Active Protocol: Document 12/04/24 10:00 FIRE PATROL (Rec: 12/04/24 10:47 FIRE PATROL Laptop) Therapeutic Exercises Prone Exercises Cat Cow Reps/Minutes x10 with 5s hold Comments Added to HEP Sidelying Exercises Hip Ext Sidelying Exercise AROM assist Name Side right Reps/Minutes 10x2 Comments from hip flex to slight past neutral Reverse clamshell Side bilateral Reps/Minutes x10 each side Comments HEP review Sitting Exercises Nerve Flossing Side right Reps/Minutes x10 Comments Seated with ext knee and ankle pumps, added head nods to HEP Manual Therapy Treatment Consent Patient gave verbal Yes consent for manual treatment Soft Tissue Mobilization TFL/ITB Body Location R Mobilization Type Myofascial Release,Rolling Intensity/Depth Superficial Body Position L Sidelying Comments origin towards insertion, very light pressure d/t pain from tightness Glute med Body Location R Mobilization Type Cross-Friction,Myofascial Release,Rolling Intensity/Depth Moderate Body Position L Sidelying PT-OP-T Assessment and Plan Start: 11/14/24 07:54 Freq: Status: Active Protocol: Document 12/04/24 10:00 FIRE PATROL (Rec: 12/04/24 10:47 FIRE PATROL Laptop) Physical Therapy Plan Next Visit Focus/Plan Next Note Type Treatment Note Next Visit Plan Review HEP, added components to R sciatic nerve flossing as tolerated, STM to R prox HS, mini squats
--- NOTE | 2024-12-11 19:16 | PT.OTN ---
Current Diagnoses Other chronic pain (12/11/24) Spondylosis without myelopathy or radiculopathy, lumbar region (12/11/24) Radiculopathy, lumbar region (12/11/24) Radiculopathy, lumbosacral region (12/11/24) Sciatica, right side (12/11/24) Lumbago with sciatica, right side (12/11/24) Physical Therapy Treatment Note PT-OP-A Visit Information Start: 11/14/24 07:54 Freq: Status: Active Protocol: Document 12/11/24 10:51 [employer] (Rec: 12/11/24 11:34 [employer] Laptop) Out-Patient Physical Therapy Visit Information Visit Information Visit Type Treatment Note Visit Start Time 10:50 Visit Stop Time 11:33 Visit Number 8 Number of SAP TREASURY CONSULTANT Visits 0 Evaluation Information Evaluation Date 11/13/24 Precautions Precautions N/A PT-OP-B Current Condition Start: 11/14/24 07:54 Freq: Status: Active Protocol: Document 11/13/24 17:00 [employer] (Rec: 11/14/24 09:10 [employer] Laptop) Current Condition History of Current Condition Onset Date Jun 2024 Current Complaints R lumbar pain radiating down RLE to foot History of Current chronic back pain, getting injections for pain control Condition Prior Treatments and sees chiropractor, feels like last session 1 day ago Tests made pain worse PT-OP-C Subjective Start: 11/14/24 07:54 Freq: Status: Active Protocol: Document 12/11/24 10:51 [employer] (Rec: 12/11/24 11:34 [employer] Laptop) OP-PT Subjective Patient Comments Patient Comments Pt reports her pain has increased after each therapy session and has not done her HEP d/t increase of pain. She presents a log of pain levels and activity since last session. She had a doctor's visit to discuss this and planning for alt treatment. PT-OP-F Manual Assessment Start: 11/14/24 07:54 Freq: Status: Active Protocol: Document 11/13/24 17:00 [employer] (Rec: 11/14/24 09:10 [employer] Laptop) Manual Assessments Soft Tissue Assessment Soft Tissue Mobility Decreased soft tissue mobility to R paraspinals at L2-4 Assessment , decreased soft tissue mobility and TTP to B piriformis with R impairment>L PT-OP-H Neuro Start: 11/14/24 09:11 Freq: Status: Active Protocol: Document 11/13/24 17:00 [employer] (Rec: 11/14/24 09:15 [employer] Laptop) Sensation Evaluation Comments Summary Comments 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 PT-OP-J Posture/Palpation/Skin Start: 11/14/24 09:11 Freq: Status: Active Protocol: Document 11/13/24 17:00 [employer] (Rec: 11/14/24 09:15 [employer] Laptop) Posture Evaluation Comments Posture Comments Sitting: increased cervical lordosis/forward head posture, L shoulder elevated Standing: Pelvic tilt to R with slight R knee flex, RLE slight out toeing PT-OP-K Range of Motion Start: 11/14/24 07:54 Freq: Status: Active Protocol: Document 11/13/24 17:00 [employer] (Rec: 11/14/24 09:10 [employer] Laptop) Hip Goniometric Range of Motion Hip B Comments Supine R hip flex active 115 without onset of pain, L hip flex active 110 active Supine B hip abd WNL Prone active quad length R 80 degrees, 90 degrees both limited by muscle tightness Prone active B hip ext mild muscle length limitation R> L PT-OP-L Special Tests Start: 11/14/24 07:54 Freq: Status: Active Protocol: Document 11/13/24 17:00 [employer] (Rec: 11/14/24 09:10 [employer] Laptop) Special Tests Neural Special Tests- Lower Body SLR Test Results Negative Comments Negative but with mild quad lag B PT-OP-M Strength Start: 11/14/24 07:54 Freq: Status: Active Protocol: Document 11/13/24 17:00 [employer] (Rec: 11/14/24 09:10 [employer] Laptop) Hip Strength Hip Manual Muscle Testing L Flexion (L2) 3+ Fair+ Extension (S1) 3- Fair- Abduction 4 Good External Rotation 3- Fair- R Flexion (L2) 3- Fair- Extension (S1) 2+ Poor+ Abduction 4- Good- External Rotation 3+ Fair+ Knee Strength Knee Manual Muscle Testing L Flexion (S2) 4+ Good+ Extension (L3) 4+ Good+ R Flexion (S2) 4+ Good+ Extension (L3) 4+ Good+ Ankle/Foot Strength Ankle and Foot Manual Muscle Testing L Dorsiflexion (L4) 5 Normal Plantarflexion (S1) 4 Good R Dorsiflexion (L4) 5 Normal Plantarflexion (S1) 4 Good PT-OP-Q Treatments Start: 11/14/24 07:54 Freq: Status: Active Protocol: Document 12/11/24 10:51 [employer] (Rec: 12/11/24 11:34 [employer] Laptop) Cardio Equipment Recumbent Elliptical (Biodex) Duration (Minutes) 6 Resistance L4 Seat Position 10 Other BUEs and BLEs for warm up Therapeutic Exercises Supine Exercises DKTC Side bilateral Reps/Minutes [id number] Comments HEP handout given Manual Therapy Treatment Consent Patient gave verbal Yes consent for manual treatment Soft Tissue Mobilization TFL/ITB Body Location R Mobilization Type Myofascial Release Intensity/Depth Superficial Body Position L sidelying Comments after hot moist pack, origin towards insertion, very light pressure d/t pain from tightness Glute med Body Location R glute med and piriformis Mobilization Type Myofascial Release Intensity/Depth Superficial Body Position L Sidelying and prone with pillows under hips Comments After hot pack PT-OP-T Assessment and Plan Start: 11/14/24 07:54 Freq: Status: Active Protocol: Document 12/11/24 10:51 [employer] (Rec: 12/11/24 11:34 [employer] Laptop) Physical Therapy Assessment Goals 3 Short Term Goal (STG Pt will demonstrate improved strength of B hip flexion ) and B hip ext by 1 point for improved function STG Duration 6 weeks Chcf Goal (LTG) Pt will demonstrate improved strength of B hip flexion and B hip ext by 2 points for improved function LTG Duration 12 weeks 2 Short Term Goal (STG Pt will perform squats to low 14 chair x10 consecutive ) to progress towards goal of working in garden STG Duration 6 weeks Body Make Up Artist Goal (LTG) Pt will report improved sitting tolerance in unsupported sitting to 20 mins in order to work in garden LTG Duration 12 weeks 1 Short Term Goal (STG Pt will improve oswestry low back score from 28% to 25% ) to improve function STG Duration 6 weeks Body Make Up Artist Goal (LTG) Pt will improve oswestry low back score from 28% to 20% to improve function LTG Duration 12 weeks Progress Towards Goals Progress Towards Slow Progress - Other Goals Assessment Summary Assessment Focus this session on decreasing pain, maintaining lumbar flexion positioning and movement. Pt continues to have tightness to R piriformis and ITB but is very intolerant to pressure with STM, slightly improved after moist hot pack applied to muscles prior to STM. Pt tolerated double knee to chest movement and instructed to pause other HEP and only perform DKTC 2x/ day and in times of high pain to assess for success in pain management. Physical Therapy Plan Next Visit Focus/Plan Next Note Type Treatment Note Next Visit Plan flexion based movement, supine L lateral flex for opening of R lumbar facets, strengthening of core in neutral spine, shuttle recovery light weight
--- NOTE | 2024-12-13 17:53 | PT.OTN ---
Current Diagnoses Other chronic pain (12/13/24) Spondylosis without myelopathy or radiculopathy, lumbar region (12/13/24) Radiculopathy, lumbar region (12/13/24) Radiculopathy, lumbosacral region (12/13/24) Sciatica, right side (12/13/24) Lumbago with sciatica, right side (12/13/24) Physical Therapy Treatment Note PT-OP-A Visit Information Start: 11/14/24 07:54 Freq: Status: Active Protocol: Document 12/13/24 11:55 HUMAN RESOURCES CLERK (Rec: 12/13/24 13:02 HUMAN RESOURCES CLERK Laptop) Out-Patient Physical Therapy Visit Information Visit Information Visit Type Progress Note Visit Start Time 11:33 Visit Stop Time 12:26 Visit Number 9 Number of NEON TUBE PUMPER Visits 0 Evaluation Information Evaluation Date 11/13/24 Precautions Precautions N/A PT-OP-B Current Condition Start: 11/14/24 07:54 Freq: Status: Active Protocol: Document 11/13/24 17:00 HUMAN RESOURCES CLERK (Rec: 11/14/24 09:10 HUMAN RESOURCES CLERK Laptop) Current Condition History of Current Condition Onset Date Jun 2024 Current Complaints R lumbar pain radiating down RLE to foot History of Current chronic back pain, getting injections for pain control Condition Prior Treatments and sees chiropractor, feels like last session 1 day ago Tests made pain worse PT-OP-C Subjective Start: 11/14/24 07:54 Freq: Status: Active Protocol: Document 12/13/24 11:55 HUMAN RESOURCES CLERK (Rec: 12/13/24 13:02 HUMAN RESOURCES CLERK Laptop) OP-PT Subjective Patient Comments Patient Comments Pt reports her pain has been much better since pausing from other exercises and just doing DKTC when in pain. Currently at 4/10 centralized to R low back without radiation. Patient Reported Improving Progress Patient Questionnaires Oswestry Low Back Index Oswestry Score 16% PT-OP-F Manual Assessment Start: 11/14/24 07:54 Freq: Status: Active Protocol: Document 11/13/24 17:00 HUMAN RESOURCES CLERK (Rec: 11/14/24 09:10 HUMAN RESOURCES CLERK Laptop) Manual Assessments Soft Tissue Assessment Soft Tissue Mobility Decreased soft tissue mobility to R paraspinals at L2-4 Assessment , decreased soft tissue mobility and TTP to B piriformis with R impairment>L PT-OP-H Neuro Start: 11/14/24 09:11 Freq: Status: Active Protocol: Document 11/13/24 17:00 HUMAN RESOURCES CLERK (Rec: 11/14/24 09:15 HUMAN RESOURCES CLERK Laptop) Sensation Evaluation Comments Summary Comments 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 PT-OP-J Posture/Palpation/Skin Start: 11/14/24 09:11 Freq: Status: Active Protocol: Document 11/13/24 17:00 HUMAN RESOURCES CLERK (Rec: 11/14/24 09:15 HUMAN RESOURCES CLERK Laptop) Posture Evaluation Comments Posture Comments Sitting: increased cervical lordosis/forward head posture, L shoulder elevated Standing: Pelvic tilt to R with slight R knee flex, RLE slight out toeing PT-OP-K Range of Motion Start: 11/14/24 07:54 Freq: Status: Active Protocol: Document 11/13/24 17:00 HUMAN RESOURCES CLERK (Rec: 11/14/24 09:10 HUMAN RESOURCES CLERK Laptop) Hip Goniometric Range of Motion Hip B Comments Supine R hip flex active 115 without onset of pain, L hip flex active 110 active Supine B hip abd WNL Prone active quad length R 80 degrees, 90 degrees both limited by muscle tightness Prone active B hip ext mild muscle length limitation R> L PT-OP-L Special Tests Start: 11/14/24 07:54 Freq: Status: Active Protocol: Document 11/13/24 17:00 HUMAN RESOURCES CLERK (Rec: 11/14/24 09:10 HUMAN RESOURCES CLERK Laptop) Special Tests Neural Special Tests- Lower Body SLR Test Results Negative Comments Negative but with mild quad lag B PT-OP-M Strength Start: 11/14/24 07:54 Freq: Status: Active Protocol: Document 12/13/24 11:55 HUMAN RESOURCES CLERK (Rec: 12/13/24 13:02 HUMAN RESOURCES CLERK Laptop) Hip Strength Hip Manual Muscle Testing L Flexion (L2) 4 Good Extension (S1) 3 Fair Abduction 4+ Good+ External Rotation 3- Fair- R Flexion (L2) 4 Good Extension (S1) 3+ Fair+ Abduction 4 Good External Rotation 3+ Fair+ Knee Strength Knee Manual Muscle Testing L Flexion (S2) 4+ Good+ Extension (L3) 4+ Good+ R Flexion (S2) 4+ Good+ Extension (L3) 4+ Good+ Ankle/Foot Strength Ankle and Foot Manual Muscle Testing L Dorsiflexion (L4) 5 Normal Plantarflexion (S1) 4 Good R Dorsiflexion (L4) 5 Normal Plantarflexion (S1) 4 Good PT-OP-Q Treatments Start: 11/14/24 07:54 Freq: Status: Active Protocol: Document 12/13/24 11:55 HUMAN RESOURCES CLERK (Rec: 12/13/24 17:36 HUMAN RESOURCES CLERK Laptop) Cardio Equipment Recumbent Elliptical (Biodex) Duration (Minutes) 5 Resistance L5 Other BLEs for warm up, increased radiation down RLE Therapeutic Exercises Supine Exercises DKTC Supine Exercise Name DKTC and introduced SKTC Side bilateral Reps/Minutes 30sx5 Comments performed throughout session to reduce pain PPT Supine Exercise Name on moist heat pack at end of session to reduce pain Side bilateral Reps/Minutes x10 PT-OP-T Assessment and Plan Start: 11/14/24 07:54 Freq: Status: Active Protocol: Document 12/13/24 11:55 HUMAN RESOURCES CLERK (Rec: 12/13/24 13:02 HUMAN RESOURCES CLERK Laptop) Physical Therapy Assessment Impairments Impairments Activity Tolerance,Balance,Functional Activities, Functional Mobility,Pain,Posture,ROM,Sensation,Soft Tissue Mobility,Strength Goals 3 Short Term Goal (STG Pt will demonstrate improved strength of B hip flexion ) and B hip ext by 1 point for improved function Status: MET STG Duration 6 weeks Chcf Goal (LTG) Pt will demonstrate improved strength of B hip flexion and B hip ext by 2 points for improved function LTG Duration 12 weeks 2 Short Term Goal (STG Pt will perform squats to low 14 chair x10 consecutive ) to progress towards goal of working in garden STG Duration 6 weeks Chcf Goal (LTG) Pt will report improved sitting tolerance in unsupported sitting to 20 mins in order to work in garden LTG Duration 12 weeks 1 Short Term Goal (STG Pt will improve oswestry low back score from 28% to 25% ) to improve function Status: MET STG Duration 6 weeks Belt Loop Cutter Goal (LTG) Pt will improve oswestry low back score from 28% to 20% to improve function Status: MET Updated Goal 12/13: Pt will improve oswestry low back score from 16% to <5% to improve function LTG Duration 12 weeks Progress Towards Goals Progress Towards Progressing Toward Goals Goals Progress Comments met 2 STGs and 1 LTG, LTG updated Assessment Summary Assessment Pt still has high pain levels in R low back with radiation down leg, however demonstrates progress in BLE strength despite strength testing exacerbating pain , especially in BLE hip ext. Pt also has demonstrated functional progress as seen with oswestry low back score from 28% on eval to 16% today. Pt educated on performing double knee to chest and single knee to chest stretches throughout day for pain control, especially in morning, post pelvic tilts for core strengthening and pain control, use of heat at low back , and performing activities only in pain free range. Pt is demonstrating progress towards goals despite slow progress and will benefit from continued skilled PT to continue progressing towards goals. Pt would like to reduce PT down to 1x/wk starting next week. Pain at 4/ 10 at beginning of session, increased to 6/10 after strength testing, and reduced back down to 4/10 after moist heat at low back with DKTC and PPTs. Physical Therapy Plan Frequency and Duration Frequency of 2-3x/wk Treatment Duration of 12 treatment (weeks) Plan of Care Start 11/13/24 Date Plan of Care End 02/05/25 Date Therapeutic Interventions Therapeutic Balance Training,Gait Training,Home Exercise Program, Interventions Manual Therapy,Neuromuscular Re-education,Patient/ Caregiver Education,Sensory Integration,Soft Tissue Mobilization,Taping,Therapeutic Activities,Therapeutic Exercises Modalities Cold Pack/Ice Massage,Electric Stimulation,Hot Packs, Traction- Mechanical,Ultrasound Next Visit Focus/Plan Next Note Type Treatment Note Next Visit Plan flexion based movement, supine L lateral flex for opening of R lumbar facets, strengthening of core in neutral spine, shuttle recovery light weight
--- NOTE | 2024-12-20 16:26 | PT-OP ANOTE ---
Pt cancelled remaining appts since last seen. TIME BROKER called pt and Christina commented she is still having pain and exercises are helping pain reduction. She did see an orthopedic and was suggested if PT not helping then can cancel remaining appts. In discussion with primary PT Lynda, received an email from family coach reasoning of cancelled appts and please complete DC. PT will complete DC. TIME BROKER appoligized she didn't get relief from PT and stated if needs any further support to please contact physician and get new script for PT. Pt verbalized understanding.
--- NOTE | 2025-01-21 08:07 | PT.OPDS ---
Current Diagnoses Other chronic pain (12/13/24) Spondylosis without myelopathy or radiculopathy, lumbar region (12/13/24) Radiculopathy, lumbar region (12/13/24) Radiculopathy, lumbosacral region (12/13/24) Sciatica, right side (12/13/24) Lumbago with sciatica, right side (12/13/24) Visit Care Team Role Provider Type Kristyn Prado DO Attending Provider Physician Family Provider Primary Care Provider Referring Provider Specialty: Medical Address: [address] [place] [address], [address], [place], [address] Email: [email or web address] Visit Number Visit Number 9 Discharge Summary PT-OP-B Current Condition Start: 11/14/24 07:54 Freq: Status: Active Protocol: Document 11/13/24 17:00 STAINED GLASS ARTIST (Rec: 11/14/24 09:10 STAINED GLASS ARTIST Laptop) Current Condition History of Current Condition Onset Date Jun 2024 Current Complaints R lumbar pain radiating down RLE to foot History of Current chronic back pain, getting injections for pain control Condition Prior Treatments and sees chiropractor, feels like last session 1 day ago Tests made pain worse PT-OP-C Subjective Start: 11/14/24 07:54 Freq: Status: Active Protocol: Document 12/13/24 11:55 STAINED GLASS ARTIST (Rec: 12/13/24 13:02 STAINED GLASS ARTIST Laptop) OP-PT Subjective Patient Comments Patient Comments Pt reports her pain has been much better since pausing from other exercises and just doing DKTC when in pain. Currently at 4/10 centralized to R low back without radiation. Patient Reported Improving Progress Patient Questionnaires Oswestry Low Back Index Oswestry Score 16% PT-OP-F Manual Assessment Start: 11/14/24 07:54 Freq: Status: Active Protocol: Document 11/13/24 17:00 STAINED GLASS ARTIST (Rec: 11/14/24 09:10 STAINED GLASS ARTIST Laptop) Manual Assessments Soft Tissue Assessment Soft Tissue Mobility Decreased soft tissue mobility to R paraspinals at L2-4 Assessment , decreased soft tissue mobility and TTP to B piriformis with R impairment>L PT-OP-H Neuro Start: 11/14/24 09:11 Freq: Status: Active Protocol: Document 11/13/24 17:00 STAINED GLASS ARTIST (Rec: 11/14/24 09:15 STAINED GLASS ARTIST Laptop) Sensation Evaluation Comments Summary Comments 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 PT-OP-J Posture/Palpation/Skin Start: 11/14/24 09:11 Freq: Status: Active Protocol: Document 11/13/24 17:00 STAINED GLASS ARTIST (Rec: 11/14/24 09:15 STAINED GLASS ARTIST Laptop) Posture Evaluation Comments Posture Comments Sitting: increased cervical lordosis/forward head posture, L shoulder elevated Standing: Pelvic tilt to R with slight R knee flex, RLE slight out toeing PT-OP-K Range of Motion Start: 11/14/24 07:54 Freq: Status: Active Protocol: Document 11/13/24 17:00 STAINED GLASS ARTIST (Rec: 11/14/24 09:10 STAINED GLASS ARTIST Laptop) Hip Goniometric Range of Motion Hip B Comments Supine R hip flex active 115 without onset of pain, L hip flex active 110 active Supine B hip abd WNL Prone active quad length R 80 degrees, 90 degrees both limited by muscle tightness Prone active B hip ext mild muscle length limitation R> L PT-OP-L Special Tests Start: 11/14/24 07:54 Freq: Status: Active Protocol: Document 11/13/24 17:00 STAINED GLASS ARTIST (Rec: 11/14/24 09:10 STAINED GLASS ARTIST Laptop) Special Tests Neural Special Tests- Lower Body SLR Test Results Negative Comments Negative but with mild quad lag B PT-OP-M Strength Start: 11/14/24 07:54 Freq: Status: Active Protocol: Document 12/13/24 11:55 STAINED GLASS ARTIST (Rec: 12/13/24 13:02 STAINED GLASS ARTIST Laptop) Hip Strength Hip Manual Muscle Testing L Flexion (L2) 4 Good Extension (S1) 3 Fair Abduction 4+ Good+ External Rotation 3- Fair- R Flexion (L2) 4 Good Extension (S1) 3+ Fair+ Abduction 4 Good External Rotation 3+ Fair+ Knee Strength Knee Manual Muscle Testing L Flexion (S2) 4+ Good+ Extension (L3) 4+ Good+ R Flexion (S2) 4+ Good+ Extension (L3) 4+ Good+ Ankle/Foot Strength Ankle and Foot Manual Muscle Testing L Dorsiflexion (L4) 5 Normal Plantarflexion (S1) 4 Good R Dorsiflexion (L4) 5 Normal Plantarflexion (S1) 4 Good PT-OP-T Assessment and Plan Start: 11/14/24 07:54 Freq: Status: Active Protocol: Document 01/21/25 08:05 STAINED GLASS ARTIST (Rec: 01/21/25 08:07 STAINED GLASS ARTIST Laptop) Physical Therapy Assessment Assessment Summary Assessment Pt was making slow but steady progress with PT, however called on 12/20 to cancel all PT appointments. Physical Therapy Plan Discharge Physical Therapy Discharge Reasons No Longer Attending PT Discharge Comments Pt called to cancel all PT appointments, will need new referral to return to PT. D/C from PT
== END 2025-01-23 08:59 | disposition home or self-care (01) ==
LOC: PHYS 11:30
PROVIDERS: Family Provider Family Medicine; PCP Family Medicine; Referring Provider Family Medicine; Visit Provider Family Medicine
DX: M54.41 Lumbago with sciatica, right side (principal); M54.16 Radiculopathy, lumbar region; M47.816 Spondylosis without myelopathy or radiculopathy, lumbar region; M54.17 Radiculopathy, lumbosacral region; G89.29 Other chronic pain
CPT/HCPCS: 97110; 97112; 97140; 97162; 97530

== ENCOUNTER → 2024-12-26 12:44 | Outpatient (CLI) | payer MEDICARE, OTHER, SELFPAY ==
--- NOTE | 2024-12-26 12:46 | DI.RAD.S_ITS ---
PROCEDURE: XR CHEST 2V INDICATIONS: 2 wk cough, CP w/ coughing TECHNIQUE: 2 views of the chest were acquired. COMPARISON: [facility], CR, XR CHEST 1V, 12/28/2023, 11:30. FINDINGS: Surgical changes and devices: None. Lungs and pleura: Lungs are clear. No pleural effusions or pneumothorax. Mediastinum: Mediastinal contours are normal. Heart size is normal. Bones and chest wall: No suspicious bony abnormalities. Soft tissues appear unremarkable. IMPRESSION: No acute pulmonary process. Dictated by: Anju Mendez M.D. on 12/26/2024 at 13:06 Approved by: Anju Mendez M.D. on 12/26/2024 at 13:07
== END ==
LOC: RAD 12:45
PROVIDERS: PCP Family Medicine; Referring Provider Student in an Organized Health Care Education/Training Program; Visit Provider Student in an Organized Health Care Education/Training Program
DX: R05.8 Other specified cough (principal); R52 Pain, unspecified
CPT/HCPCS: 71046

== ENCOUNTER → 2025-03-04 09:22 | Outpatient (CLI) | payer MEDICARE, OTHER, SELFPAY ==
[2025-03-04 10:40] LABS: Appearance Urine UA CLEAR; Bilirubin Urine UA NEGATIVE (NEGATIVE); Color Urine UA YELLOW; Glucose Urine UA NEGATIVE (Negative); Ketones Urine UA NEGATIVE (NEGATIVE); Leukocyte Esterase Urine UA TRACE (NEGATIVE); Nitrite Urine UA NEGATIVE (Negative); Occult Blood Urine UA NEGATIVE (Negative); Protein Urine UA NEGATIVE (Negative); Specific Gravity Urine UA <=1.005 (1.000-1.035); Urobilinogen Urine UA 0.2 E.U./dL (0.2)
[2025-03-04 10:45] LABS: pH Urine UA 6.5 (4.5-8.0)
[2025-03-04 10:46] LABS: Culture Indicated Urine Specimen Cultured
== END ==
PROVIDERS: PCP Family Medicine; Referring Provider Family Medicine; Visit Provider Family Medicine
DX: N39.0 Urinary tract infection, site not specified (principal)
CPT/HCPCS: 81001; 87086

== ENCOUNTER → 2025-03-20 | Outpatient (CLI) | payer MEDICARE, OTHER, SELFPAY ==
--- NOTE | 2025-03-20 16:43 | DI.RAD.S_ITS ---
PROCEDURE: XR KNEE STANDING BI INDICATIONS: Bilateral Knee pain TECHNIQUE: Frontal weight-bearing view of both knees COMPARISON: [facility], CR, XR KNEE RT 3V, 12/22/2022, 12:30. FINDINGS: Bones: No acute fractures or dislocations. Patellar alignment is normal on the sunrise view. No suspicious bony lesions. Joint spaces appear normal with weightbearing. Moderate diffuse osteopenia Soft tissues: No knee joint effusions. No suspicious soft tissue calcification. IMPRESSION: No significant arthropathy on this single view Dictated by: Sim Arias M.D. on 03/22/2025 at 17:50 Approved by: Sim Arias M.D. on 03/22/2025 at 17:51
== END ==
LOC: RAD 16:42
PROVIDERS: PCP Family Medicine; Referring Provider Family Medicine; Visit Provider Family Medicine
DX: M25.561 Pain in right knee (principal); M25.562 Pain in left knee; G89.29 Other chronic pain
CPT/HCPCS: 73565

== ENCOUNTER → 2025-03-26 09:17 | Outpatient (CLI) | payer MEDICARE, OTHER, SELFPAY ==
[2025-03-26 10:40] LABS: Hemoglobin A1C% w Est Avg Glu 5.5 % (4.0-6.0)
[2025-03-26 10:50] LABS: Albumin 4.5 g/dL (3.5-5.0); Blood Urea Nitrogen 11 mg/dL (7-17); Calcium 9.2 mg/dL (8.4-10.2); Carbon Dioxide 27 mmol/L (22-32); Chloride 96 mmol/L (98-107); Estimated Glomerular Filt Rate > 60 mL/min (>60); Glucose 90 mg/dL (70-99); HEMOLYSIS < 15 (0-50); Potassium 4.7 mmol/L (3.4-5.1); Sodium 131 mmol/L (137-145)
[2025-03-26 10:55] LABS: Add Manual Diff / Slide Review NO; Hematocrit 33.1 % (36-46); Hemoglobin 11.4 g/dL (12.0-16.0); Lymphocytes Absolute Auto 1300 /uL (1100-4500); Mean Corpuscular HGB Conc 34.4 % (30-36); Mean Corpuscular Hemoglobin 31.9 PG (26-34); Mean Corpuscular Volume 92.8 fL (80-100); Platelet Count 457 X10^3/uL (150-400)
[2025-03-26 10:58] LABS: Prealbumin 30.8 mg/dL (17.6-36.0)
[2025-03-26 11:07] LABS: Vitamin D 25 Hydroxy (D3) 46.6 ng/mL (30.0-100.0)
== END ==
PROVIDERS: PCP Family Medicine; Referring Provider Orthopaedic Surgery Adult Reconstructive Orthopaedic Surgery; Visit Provider Orthopaedic Surgery Adult Reconstructive Orthopaedic Surgery
DX: Z01.818 Encounter for other preprocedural examination (principal); R73.09 Other abnormal glucose; E55.9 Vitamin D deficiency, unspecified
CPT/HCPCS: 36415; 80048; 82040; 82306; 83036; 84134; 85025

== ENCOUNTER → 2025-03-27 10:40 | Outpatient (CLI) | payer MEDICARE, OTHER, SELFPAY ==
--- NOTE | 2025-03-27 10:42 | DI.RAD.S_ITS ---
PROCEDURE: XR DEXA AXIAL SKELETON INDICATIONS: menopausal osteopenia COMPARISON: [facility], YANDEL, XR DEXA AXIAL SKELETON, 07/20/2022, 10:43. FINDINGS: Lumbar Spine: Bone mineral density is 0.836 g/cm2, T score -1.9, -2.2%, denotes dissimilar scan types or analysis methods. Left Femoral Neck: Bone mineral density is 0.631 g/cm2, T score -2.0. Left Total Hip: Bone mineral density is 0.619 g/cm2, T score -2.7, -7.9%, denotes dissimilar scan types or analysis methods. Fracture Risk Calculation (when applicable): 10-year fracture risk of a major osteoporotic fracture is 24 percent and of a hip fracture 6.7 percent. Fracture probability calculated for nontreated patient. Fracture probability maybe lower if the patient has received treatment. (T score greater or equal to -1.0 to: NORMAL) (T score from -1.1 to -2.4: OSTEOPENIA) (T score less than or equal to -2.5: OSTEOPOROSIS) IMPRESSION: Osteopenia in the lumbar spine. Osteoporosis in the left total hip. See below for follow-up guidelines. Follow-up guidelines as follows: Osteoporosis: Consider a repeat DEXA and Vertebral Fracture Assessment (VFA) exam in 2 years or sooner if medically necessary, to reassess this patient's status. Osteopenia: Consider a repeat DEXA in 2-3 years to reassess this patient's status, or if there is a new clinical indication. Normal: Consider a repeat DEXA in 5 years or sooner, or if there is a new clinical indication. All treatment decisions require clinical judgment and consideration of individual patient factors, including patient preferences, comorbidities, previous drug use, risk factors not captured in the FRAX model (e.g., frailty, falls, vitamin D deficiency, increased bone turnover, interval significant decline in bone density ) and possible under- or over-estimation of fracture risk by FRAX. In addition, the NOF Guide recommends that FDA-approved medical therapies be considered in postmenopausal women and men age >= 50 years with a: * Hip or vertebral (clinical or morphometric) fracture * T-score of <=-2.5 at the spine or hip * Ten-year fracture probability by FRAX of >= 3% for hip fracture or >=20% for major osteoporotic fracture. Dictated by: Leann Oconnor RR Interpreted: Hilario Bruks MD on 03/27/2025 at 14:02 Transcribed by: MEENA on 03/27/2025 at 14:03 Approved by: Hilario Burks M.D. on 03/28/2025 at 8:53
== END ==
PROVIDERS: PCP Family Medicine; Referring Provider Family Medicine; Visit Provider Family Medicine
DX: M81.0 Age-related osteoporosis without current pathological fracture (principal); Z78.0 Asymptomatic menopausal state
CPT/HCPCS: 77080

== ENCOUNTER 2025-03-27 13:58 | Outpatient (CLI) | payer MEDICARE, OTHER, SELFPAY ==
[2025-03-27] VITALS (9 sets, daily range): BP systolic 157–199; BP diastolic 71–88; PULSE 72–85; RESP 8–16; TEMP 36.7; O2SAT 96–100
[2025-03-27] MEDS: MIDAZOLAM 2 MG/2 ML VIAL IV (15:18)
[2025-03-27] MEDS: LIDOCAINE 2% INJ MDV 20ML 5 ML INJ (15:32)
[2025-03-27] MEDS: LIDOCAINE 1% 20 ML 5 ML INJ (15:33)
--- NOTE | 2025-03-27 15:40 | P.PCN_ITS ---
Date/Time/Diagnoses Date of procedure: 03/27/25 Time of procedure: 15:40 Pre-procedure diagnosis: 1. FACET ARTHROPATHY Post-procedure diagnosis: same Procedure Notes Procedure: 1. BILATERAL- L4, L5 and S1 DIAGNOSTIC MB BLOCKS with SA Anesthetic Indications: Christina is referred by Dr. Prado for treatment of Bilateral Axial LBP. Physician: Hilario Burciaga Total Fluoroscopy time (seconds): 12 Total sedation minutes: 14 Complications: none Procedure in detail & Post-procedure care: DESCRIPTION OF PROCEDURE Fluoroscopically guided, contrast-controlled bilateral L4, L5 and S1 medial branch blocks with 0.5cc of 2% Lidocaine. Following review of allergy and review of potential side effects and complications, including, but not necessarily limited to, infection, allergic reaction, local tissue breakdown, nerve injury, paralysis, stroke and possible , the patient indicated that the patient understood and agreed to proceed. An informed consent document was signed by the patient, witnessed by a nurse, and placed in the patient's chart. After review of previous anaesthesic history and IV conscious sedation the patient was deemed safe to proceed with today's procedure with IV conscious sedation as ASA class II designation. Safety time-out was performed to confirm patient ID, procedure to be performed and site of procedure. IV sedation was accomplished with a combination of 2mg of Versed was administered by the RN after DO order, titrated to patient comfort during the course of the procedure while the patient remained responsive to all verbal commands In the prone position, following sterile prep and drape of the lumbar region, the right L4, L5 and S1 anatomical location of the medial branch of the dorsal ramus was identified fluoroscopically. Subsequently an anesthetic skin wheal u sing 1% lidocaine solution was initiated at each of the anatomical spots. Subsequently then a 22-gauge 3.5-inch spinal needle was atraumatically introduced and advanced under fluoroscopic guidance at each of the corresponding sites at the right L4, L5 and S1 MB. After negative aspiration, 0.2cc of Isovue 200 was injected, confirming placement without vascular or intrathecal uptake. Subsequently then 0.5cc of 2% Lidocaine solution was injected at each of the corresponding sites at the right L4, L5 and S1 medial branch locations. The identical procedure was replicated on the left. The patient tolerated the procedure well without signs or symptoms of complications prior to transfer to the recovery area continued monitoring without incident. Post-procedure, the patient was monitored initiating provocative activities to measure the amount of relief from block of the facetogenic pain. The patient reported a VAS of 7 prior to the procedure and a post-procedure VAS of 1. It has been a pleasure to assist in the diagnostic and therapeutic care of your patient. POST OP INSTRUCTIONS The patient was provided with a Pain Log to complete over the next several hours and subsequent days prior to the patient's follow up with the ordering physician. If the patient has package wrapper relief to the solution applied, then they may be a candidate for medial branch rhizotomy. The patient is aware, was provided, once again, with a Pain Log and will follow up with the referring physician for review and clinical correlation
== END 2025-03-27 16:07 | disposition home or self-care (01) ==
LOC: RAD 13:59
PROVIDERS: PCP Family Medicine; Referring Provider Physical Medicine & Rehabilitation; Visit Provider Physical Medicine & Rehabilitation
DX: M47.816 Spondylosis without myelopathy or radiculopathy, lumbar region (principal); M47.817 Spondylosis without myelopathy or radiculopathy, lumbosacral region; M81.0 Age-related osteoporosis without current pathological fracture; Z78.0 Asymptomatic menopausal state
CPT/HCPCS: 64493; 64494; 77080; 99152; J2250

== ENCOUNTER → 2025-04-01 12:28 | Outpatient (CLI) | payer MEDICARE, OTHER, SELFPAY ==
--- NOTE | 2025-04-01 12:31 | EKG_ITS ---
[address] [address] Test Date: 2025-04-01 Pat Name: Christina Jacobo Department: [facility] Room: Gender: Female Construction Equipment Technician: JOSSE : [id number] Requested By: Order Number: [id number] Reading MD: Edis Enriquez Measurements Intervals [place] Rate: 74 P: 70 RI: 158 QRS: -1 QRSD: 78 T: 60 QT: 378 QTc: 419 Interpretive Statements Normal sinus rhythm Electronically Signed On 04-02-2025 10:29:21 PDT by Edis Enriquez
== END ==
PROVIDERS: PCP Family Medicine; Referring Provider Family Medicine; Visit Provider Family Medicine
DX: Z01.818 Encounter for other preprocedural examination (principal)
CPT/HCPCS: 93005

== ENCOUNTER 2025-05-12 08:32 | Day surgery (SDC) | payer MEDICARE, OTHER, SELFPAY ==
[2025-04-29 08:14] VITALS: BMI 20.8
[2025-05-12] VITALS (13 sets, daily range): BP systolic 122–178; BP diastolic 51–80; PULSE 71–86; RESP 11–18; TEMP 35.6–37.1; O2SAT 94–99; BMI 20.3
[2025-05-12] MEDS: ACETAMINOPHEN 325 MG TABLET 975 MG PO (09:21)
[2025-05-12] MEDS: LACTATED RINGERS 1,000 ML 42 ML IV ×2 (09:21→12:05)
[2025-05-12] MEDS: FAMOTIDINE 20 MG/2 ML VIAL IV (09:21)
[2025-05-12] MEDS: MELOXICAM 7.5 MG TABLET 15 MG PO (09:42)
--- NOTE | 2025-05-12 10:09 | PM.PREOP ---
Pre-operative Note Interval Note History & Physical reviewed/Exam performed by Physician: Yes Changes to H&P: No
[2025-05-12 10:30] LABS: Add Manual Diff / Slide Review NO; Hematocrit 30.6 % (36-46); Hemoglobin 10.5 g/dL (12.0-16.0); Lymphocytes Absolute Auto 500 /uL (1100-4500); Mean Corpuscular HGB Conc 34.3 % (30-36); Mean Corpuscular Hemoglobin 31.8 PG (26-34); Mean Corpuscular Volume 92.8 fL (80-100); Platelet Count 342 X10^3/uL (150-400)
[2025-05-12] MEDS: APREPITANT 40 MG CAPSULE PO (10:32)
[2025-05-12] MEDS: TRANEXAMIC ACID 1,000 MG VIAL 1000 MG INJ ×2 (11:32→13:00)
[2025-05-12] MEDS: KETOROLAC 30 MG/ML VIAL 15 MG INJ (11:58)
--- NOTE | 2025-05-12 12:00 | SUR.OPER ---
Supine on padded OR bed. Pillow under head, arms secured on padded armboards <90 degree abduction. Safety belt across torso. Non-operative leg secured with tape over blanket over lower leg. Operative leg secured in DeMayo/Vargas/Nathe positioner. Foam padded brace at thigh of operative leg. PA in room at time of positioning to assist, all pressure points padded and protected.
--- NOTE | 2025-05-12 12:12 | DI.RAD.S_ITS ---
PROCEDURE: XR KNEE RT 1TO2V INDICATIONS: post operative imaging TECHNIQUE: 2 view(s) of the knee acquired. COMPARISON: [facility], CR, XR KNEE STANDING BI, 03/20/2025, 15:50. FINDINGS: Bones: Patient is status post knee joint arthroplasty. Hardware components are in expected positions. Visualized bony structures are intact. Soft tissues: Overlying postoperative changes are noted. IMPRESSION: Expected post-operative appearance of a knee arthroplasty. Dictated by: Zeferino Tinajero M.D. on 05/12/2025 at 14:31 Approved by: Zeferino Tinajero M.D. on 05/12/2025 at 14:32
--- NOTE | 2025-05-12 13:10 | P.OP_ITS ---
Operative Date/Time/Diagnoses Date of procedure: 05/12/25 Time of procedure: 12:00 Pre-op diagnosis: Right knee osteoarthritis Post-op diagnosis: same Procedure & Clinicians Procedure: Right total knee arthroplasty Same procedure(s) as scheduled: Yes Surgeon: Rosalio Wynne Assisted?: Yes Vice President Global Digital Marketing: Olga Mendez Anesthesia Type: General, Peripheral nerve block and Local Operative Notes Findings: Severe valgus right knee arthritis Closure Type: primary Applied: implant(s) Estimated Blood Loss (mL): 50 Procedure in detail: Right Gap-Balanced Cee Persona Medial-Congruent Primary Total Knee Arthroplasty Implants: * Size 10 narrow Cruciate Retaining Femoral Component * Size E Tibial Component * Size 11 Medial Congruent Polyethylene Insert * Unresurfaced Patella Procedure Summary: This 75-year-old female patient had valgus arthritis. Following mechanical axis cuts in the proximal tibia and distal femur there was slight lateral tightness so I performed a limited lateral release which did not incorporate any of the IT band fibers. This resulted in a balanced extension gap. Her rotation on the femoral side was 4? of internal rotation and this was verified after placement of the 4 in 1 block to appropriately balanced the flexion gap. Patellar tracking was excellent with an unresurfaced patella and a lateral facetectomy, with the patella tracking appropriately in the trochlear groove with no closure of the arthrotomy with the internally rotated femur. Bone quality was very poor as anticipated based on her preoperative DEXA scan so cemented fixation was utilized Procedure in Detail: This patient was seen preoperatively and evaluated for knee pain which was refractory to numerous nonoperative treatment modalities. Their pain correlated with radiographic changes demonstrating significant degeneration in the knee joint. The risks and benefits of continued nonoperative management versus operative management were discussed at length and all of the patient?s questions were answered. Additional educational materials providing further details beyond our discussion in clinic were provided via a publicly available patient education video which included the incidence of medical complications associated with total knee arthroplasty, reasons for revision following total knee arthroplasty, and patient satisfaction rates following total knee arthroplasty. With this understanding of the risks inherent to the procedure, the patient elected to move forward with operative management. Following preoperative optimization, the patient was scheduled for surgery. The patient was met in the preoperative holding area the day of the procedure and all questions were answered. The patient?s nares were swabbed in order to decolonize them from MRSA. Informed consent was signed and the right limb was marked with indelible ink.? The patient was brought back to the operating room where anesthesia was induced. The patient was transferred to the operating table and all bony prominences were padded. The operative site was prepped and draped in the usual sterile fashion. A second prep stick was utilized following drape placement. The incision was marked corresponding to the medial aspect of the tibial tubercle and the patella. Ioban was wrapped circumferentially around the knee. Prior to incision, tranexamic acid and cefazolin were administered. Templating images were displayed. A timeout procedure was performed verifying the patient?s identity, medical comorbidities, allergies, relevant medications, anesthesia type and the surgical plan. All present were in agreement. The assistance of a physician orthopaedic physician assistant was required for positioning, room setup, soft tissue retraction and wound closure. Without this assistance, the procedure would have been significantly more challenging and time consuming.?? The tourniquet was inflated prior to incision. I made an anterior incision over the knee, dissected through the subcutaneous tissues and identified the lateral border of the VMO. Medial and lateral soft tissue flaps were developed. A mid- vastus arthrotomy was performed ensuring that adequate capsular tissue would remain for closure at the conclusion of the procedure. The knee was brought into extension and the medial soft tissues were released off the joint line of the tibia. Tissue overlying the distal anterior femur was released to allow for later assessment for anterior notching but left in place. A portion of the retropatellar fat pad was excised while protecting the patellar tendon. The patella was everted. The patella was not resurfaced. Osteophytes were excised and a lateral facetectomy was performed. The patella was released from its everted position.?? I flexed the knee to 90 degrees and placed retractors to allow access to the notch. An opening reamer was used to gain access to the femoral canal and an intramedullary deb was introduced into the canal. Diaphyseal fit was obtained in order to plan a distal femoral resection at 5 degrees relative to the anatomic axis. A +0 resection was planned and assessed using an gerber wing. I then made the cut using a sagittal saw. This provided additional access to the femoral notch. The ACL and PCL were excised. Retractors were placed on the lateral and medial tibia. I hyperflexed the knee while externally rotating it to sublux the tibia anteriorly. I placed a Steff retractor posteriorly and used this to prov henna additional anterior subluxation. The remainder of the PCL root was released. An extramedullary guide was positioned for a resection perpendicular to the anatomic and mechanical axes of the tibia, thereby aiming to achieve mechanical alignment of the eventual implant. A +2 resection off the medial tibia after removal of a small amount of remaining cartilage was planned and the tibial cutting jig was pinned in place. I evaluated the depth, varus-valgus alignment and slope of the planned tibial resection prior to making the cut. I cut the tibia with a sagittal saw while using retractors to protect the MCL, patellar tendon, and posterolateral structures.? The knee was repositioned in extension and the Fuzion soft tissue balancing gauge was introduced. This demonstrated that there was excess tension laterally. I came to extension and used a lamina racing car driver to open up the knee joint and used a tonsil to expose the posterolateral capsule and protect the popliteus. I released this sharply. This resolved the asymmetry when I re-evaluated using the gap drawbridge operator. When 50 pounds of force was applied to the Fuzion device, the extension gap opened to 10 mm. I moved the knee into 90 degrees of flexion, and the Fuzion device was recalibrated by removing a 9 mm eve to allow assessment of the flexion gap. The Fuzion block was placed perpendicular to the resected surface of the tibia and the resected surface of the distal femur. Fifty pounds of traction was applied to match the tension of the extension gap. This internally rotated the femur to for degrees. Pins were placed in the 10 mm holes. Appropriate sizing was determined and a 4-in-1 block was placed. This was double checked using the Fuzion device to ensure that it would open to an equal distance as the extension gap when the same amount of force was applied. The Fuzion block was also used to assess flexion gap symmetry. An gerber wing was used to ensure there would be no anterior notching. Retractors were placed to p rotect the soft tissues during resection. Captured cuts were performed with a sagittal saw for the anterior and posterior femur as well as the corresponding chamfers.?A laminar racing car driver and retractors were used to expose the posterior knee and the menisci and posterior osteophytes were removed. Trial components were placed and the construct was assessed. Range of motion was assessed by ensuring the knee could achieve full extension and assessing maximum passive knee flexion by elevating the femur and allowing the heel to passively fall towards the buttock. Gap symmetry was assessed by stressing the medial and lateral compartments in both extension and flexion. Laxity was assessed in both extension and flexion and the polyethylene trial was adjusted with shims as necessary. Patellar tracking was assessed with knee flexion. Once satisfied with the construct, I moved forward with implant insertion. Lug holes were drilled in the femur and the tibia was prepped ensuring appropriate sizing and rotation relative to the tibial tubercle.?? The bony ends were irrigated and cement was prepared. Portions of the anterior chamfer cut were utilized as a cement restrictor in the femur. Cement was placed on the entirety of the undersurface of both the tibial and femoral components. Cement was placed onto the dry tibia and pressurized into the cancellous bone. I impacted the tibial component into place. Cement was removed. The tibia was reduced underneath the femur and placed cement onto the dry surface of the resected femur. I placed the femoral component as well as the intended polyeth ylene trial. Cement was removed from around the femur. I brought the knee into extension and manually pressurized the construct by pushing on the heel while the cement dried. The knee was bathed in a dilute mixture of betadine and peroxide. A mixture of Ropivacaine, Epinephrine and Toradol was infiltrated throughout the soft tissues into structures including the VMO, patellar tendon, quadriceps tendon, MCL and femoral periosteum. The knee was copiously irrigated with pulse lavage. Once cement had been allowed to dry the knee was again trialed. Range of motion was assessed by ensuring the knee could achieve full extension and assessing maximum passive knee flexion by elevating the femur and allowing the heel to passively fall towards the buttock. Gap symmetry was assessed by stressing the medial and lateral compartments in both extension and flexion. Laxity was assessed in both extension and flexion and the polyethylene trial was adjusted with shims as necessary. Patellar tracking was assessed with knee flexion. The tourniquet was let down and the polyethylene trial was removed. I inspected the knee inspected for excess cement and any residual bleeding. Once hemostasis was achieved I inserted the final polyethylene and ensured appropriate engagement of the dovetail locking mechanism.?? The arthrotomy was closed with non-absorbable interrupted suture ensuring that this extended to the top of the arthrotomy. This was backed up with running barbed suture throughout the arthrotomy. The skin was closed with 2-0 and 3-0 sutures. Surgical glue was applied and a soft dressing was placed.?The sponge, instrument and needle counts were reported as being correct at the end of the case. The patient was transferred from the operating table back to a stretcher. The patient emerged from anesthesia without difficulty and was taken to the PACU in a stable condition.? Plan for aftercare: * Weightbearing as tolerated * Aspirin 81 twice per day for DVT prophylaxis * Restart Jakafi 48 hours postoperatively per her alley worker Dr. Arellano * Multimodal pain regimen with no IV opioids ordered * Anticipate discharge home later today or tomorrow depending on her recovery this afternoon * Follow up at [facility] in 2 weeks for wound check Complications: none Post-operative Condition: stable Disposition: observation
[2025-05-12] MEDS: ONDANSETRON 4 MG/2 ML INJ IV (14:12)
--- NOTE | 2025-05-12 15:12 | SUR.PHASEI ---
Pt transferred to room 210 in bed by this RN with 2 hospital belongings bags. SBAR report to Suzi LANG
[2025-05-12] MEDS: ACETAMINOPHEN 325 MG TABLET 650 MG PO ×2 (15:27→21:37)
[2025-05-12] MEDS: LACTATED RINGERS 1,000 ML 100 ML IV (15:28)
--- NOTE | 2025-05-12 16:22 | PT.IIE ---
Current Diagnoses Unilateral primary osteoarthritis, right knee (05/12/25) Surgery Performed Operation Date: 05/12/25 11:15 Actual Procedures p Total Knee Arthroplasty(Right) - Rosalio Wynne MD Surgical History (Last Reviewed 04/24/25 @ 15:42 by Crow Rojo DO) Anesthesia complication History of hysterectomy (06/26/86) History of orthopedic surgery (2007) Status post hysterectomy (1986) Medical History (Last Updated 04/29/25 @ 13:35 by Bettina Justice RN) Allergic rhinitis Bilateral primary osteoarthritis of knee Cataract (2013) Cervical stenosis of spine Chicken pox Concussion COVID Diverticulosis Facet arthropathy, lumbar Finger fracture, left (2007) Foot pain (2009) Hayfever Hearing loss (2012) Hypertension Hyponatremia Measles Meniere's disease (12/16/14) Meniere's disease (1993) Osteoarthritis of thumbs, bilateral Sciatica Thrombocytosis (06/26/18) Tinnitus (1993) Tubular adenoma of colon Vertigo (1993) Physical Therapy Inpatient Evaluation/Re-Eval M1 PT IP Prior Functional Status Start: 05/12/25 16:14 Freq: NEEDED Status: Active Protocol: Document 05/12/25 16:14 KJ (Rec: 05/12/25 16:22 KJ [id number]) Medical Review Prior Functional Status Medical History Yes Reviewed Mobility and Gait Indep w/out AD Activities of Daily Indep Living and IADL's Social History Household Members spouse Living Arrangements House Home Equipment Front Wheel Walker,Quad Cane Additional Social Lives w/ History Comment M2 PT-IP Current Condition Start: 05/12/25 16:14 Freq: NEEDED Status: Active Protocol: Document 05/12/25 16:14 KJ (Rec: 05/12/25 16:22 KJ [id number]) Physical Therapy Current Condition Current Condition Evaluation Date 05/11/25 Treatment Diagnosis Impaired mobility Onset Date 05/11/25 M3 PT-IP Subjective Start: 05/12/25 16:14 Freq: NEEDED Status: Active Protocol: Document 05/12/25 16:14 KJ (Rec: 05/12/25 16:22 KJ [id number]) Subjective Physical Therapy Visit Type Type Initial Evaluation Visit Start Time 14:32 Visit Stop Time 16:14 Physical Therapy Visit Comments Patient Comments feels dizzy. leg feels numb. Patient Goals to feel better Therapy Pain Assessment Pain When Pain Assessed At Rest Pain Present Pain Present Pain Reported Location right knee Description Aching Pain Management Re-positioning Techniques M4 PT-IP Mobility and Gait Start: 05/12/25 16:14 Freq: NEEDED Status: Active Protocol: Document 05/12/25 16:14 KJ (Rec: 05/12/25 16:22 KJ [id number]) PT-Bed Mobility Assessment Rolling Type of Rolling Roll to Left Level of Assist Contact Guard Assistance Supine to Sit Supine to Sit Minimal Assistance Sit to Supine Sit to Supine Minimal Assistance Scooting Scooting to Edge of Contact Guard Assistance Bed PT-Transfer Assessment Sit to and From Stand Sit to and from Minimal Assistance Stand Equipment Transfer Assistive Gait Belt,Front Wheeled Walker Device Transfers Transfer Destination Bedside Commode Transfer Technique Stand Step Pivot Transfer Ability Level of Assist Minimal Assistance Comments Mobility Comments Pt lost balance in backward direction x3 requiring assistance to remain upright Gait Assessment Comments Gait Comments Due to dizziness gait training was deferred to tomorrow PT-Balance Assessment Sitting Balance and Reactions Static Sitting Normal Balance Ability Dynamic Sitting Good Balance Ability Standing Balance and Reactions Static Standing Fair Balance Ability Dynamic Standing Poor Balance Ability M5 PT-IP Objective Assessments Start: 05/12/25 16:14 Freq: NEEDED Status: Active Protocol: Document 05/12/25 16:14 KJ (Rec: 05/12/25 16:22 KJ [id number]) Orientation Orientation/Cognition Level of Alertness Lethargic Orientation Name,Age,Birthday,Month,Date,Year,Day of Week,Place, Situation Gross Range of Motion Upper Extremity ROM Assessment Within Functional Limits Lower Extremity ROM Assessment Left Impaired Impairments knee Strength Upper Extremity Strength Assessment Within Functional Limits Lower Extremity Strength Assessment Left Impaired Knee pt is able to perform a quad set. M6 PT-IP Treatment Start: 05/12/25 16:14 Freq: NEEDED Status: Active Protocol: Document 05/12/25 16:14 KJ (Rec: 05/12/25 16:22 KJ [id number]) Physical Therapy Treatment Exercises Exercises Ankle Pumps,Gluteal Sets,Quad Sets Education Education Provided Weight Bearing Status,Safety Other Treatments Other Treatment encouraged pt to keep L knee extended when in bed and Performed flexed when sitting M7 PT-IP Assessment and Plan Start: 05/12/25 16:14 Freq: NEEDED Status: Active Protocol: Document 05/12/25 16:14 KJ (Rec: 05/12/25 16:22 KJ [id number]) PT Summary Assessment and Plan Potential Rehabilitation Excellent Potential Status of Condition Evolving at Evaluation Summary Impairments Pain,ROM,Strength,Balance,Transfers,Gait Assessment Summary Pt seen day of surgery, still recovering from anesthesia causing balance deficits Goals Bed Mobility Goal Independent Transfer Goal Standby Assistance Gait Goal Standby Assistance Gait Distance 50 Days to Meet Goals 3 Frequency of Treatment Frequency Of Twice a Day Treatment Treatment Plan Physical Therapy Bed Mobility Training,Transfer Training,Gait Training, Treatment Plan Therapeutic Exercise Other Progress to ambulation in preparation for discharge Recommendations and home Next Treatment Focus Weight Bearing Status Weight Bearing Weight Bear as Tolerated Status Recommendations To Nursing Amount of Assist 1 Person Assist Needed Discharge Recommendations PT Discharge Home with 16/01 Assist Available Recommendations Transportation Needs Private Vehicle at Discharge
--- NOTE | 2025-05-12 18:10 | PM.PN.IH.1 ---
Subjective Subjective Interval history: I came by to check on Christina postoperatively. She was resting comfortably. She was working on getting her dinner sorted out. She is going to remain in the hospital overnight. We are going to utilize her baseline regimen for her nighttime medications and attempts to control her nighttime muscle spasms with this. She will restart on her Jakafi at 48 hours postoperatively. We will plan to discharge her tomorrow Exam Vital Signs (past 8 hours): - 05/12/25 13:46 05/12/25 13:50 05/12/25 13:55 Temperature 98.3 F Pulse Rate 86 82 80 Respiratory Rate 12 14 18 Blood Pressure 142/66 H 131/63 132/59 L Pulse Oximetry 96 96 96 Oxygen Delivery Method Room Air Room Air Room Air Oxygen Flow Rate 05/12/25 14:00 05/12/25 14:15 05/12/25 14:30 Temperature 97.8 F Pulse Rate 75 73 72 Respiratory Rate 18 11 L 13 Blood Pressure 127/59 L 126/57 L 125/56 L Pulse Oximetry 98 94 94 Oxygen Delivery Method Room Air Room Air Room Air Oxygen Flow Rate 05/12/25 14:45 05/12/25 16:40 Temperature 97.4 F L 96.6 F L Pulse Rate 76 74 Respiratory Rate 14 16 Blood Pressure 137/64 132/51 L Pulse Oximetry 96 97 Oxygen Delivery Method Room Air Oxygen Flow Rate 0 Oxygen Delivery Method Room Air Oxygen Flow Rate 0 Objective Labs 05/12/25 10:24 Labs: Laboratory Results - last 24 hr 05/12/25 05/12/25 09:15 10:24 WBC 4.5 RBC 3.30 L Hgb 10.5 L Hct 30.6 L MCV 92.8 MCH 31.8 MCHC 34.3 RDW 13.5 Plt Count 342 Neut % (Auto) 78.1 H Lymph % (Auto) 12.0 L [place] % (Auto) 8.0 Eos % (Auto) 1.5 L Baso % (Auto) 0.4 Neut # (Auto) 3500 Lymph # (Auto) 500 L [place] # (Auto) 400 Eos # (Auto) 100 Baso # (Auto) 0 POC Whole Bld Glucose 105 H [facility] Medical History (Updated 05/07/25 @ 16:24 by Michaelle Vann PA-C) Sciatica Facet arthropathy, lumbar Tubular adenoma of colon Hyponatremia Osteoarthritis of thumbs, bilateral Meniere's disease (12/16/14) Thrombocytosis (06/26/18) Bilateral primary osteoarthritis of knee Cervical stenosis of spine COVID Hypertension Diverticulosis Meniere's disease (1993) Finger fracture, left (2007) Cataract (2013) Hearing loss (2012) Tinnitus (1993) Vertigo (1993) Chicken pox Foot pain (2009) Measles Hayfever Allergic rhinitis Concussion Surgical History History of hysterectomy (06/26/86) Anesthesia complication History of orthopedic surgery (2007) Status post hysterectomy (1986) Family History Father Colon cancer Brain tumor Pneumonia Mother Hypertension Stroke Sister Breast cancer Brother Alcoholism Alcoholic liver disease Social History marital status: number of children: 2 household members: spouse lives independently: Yes caregiver/support person: No pets and animals: No current occupational exposures/hazards: No derrick/cheondoism: Non mandaen special derrick needs: No travel history: other sexual history: impotent. Due to medications for enlarged prostate leisure activities: exercise and reading seatbelt use: always helmet use: Yes working smoke detector in home: Yes fire extinguisher in home: Yes carbon monox detector in home: Yes do you feel safe at home: Yes Smoking Status: Never smoker second hand exposure: No alcohol intake: never substance use type: does not use during the past year weight has: remained stable well-balanced diet: daily or most days daily servings fruits/ve-4 caffeine: Yes eating out: rarely or never Type(s) of exercise: walking Assessment & Plan Time-Based Coding :: [TOTAL MINUTES] spent with patient and on the chart (including review of chart, obtaining history, exam, reviewing outside data, placing orders, documenting exam and treatment plan, and counseling patient) on [DATE]. Quality VTE Deep Vein Thrombosis/Pulmonary Embolism Present on Admission: No IH PROFEE Dress Cap Maker Document charge(s): No
[2025-05-12] MEDS: IBUPROFEN 600 MG TABLET PO (19:15)
[2025-05-12] MEDS: DOCUSATE 100 MG CAPSULE PO (20:37)
[2025-05-12] MEDS: GABAPENTIN 600 MG TABLET 1200 MG PO (20:37)
[2025-05-12] MEDS: ASPIRIN EC 81 MG TABLET PO (20:37)
[2025-05-13] VITALS: BP 132/53; PULSE 83; RESP 16; TEMP 36.2; O2SAT 95
[2025-05-13] MEDS: LACTATED RINGERS 1,000 ML 100 ML IV (01:45)
[2025-05-13] MEDS: ACETAMINOPHEN 325 MG TABLET 650 MG PO ×2 (02:45→08:32)
[2025-05-13 04:00] VITALS: BP 138/56; PULSE 84; RESP 12; TEMP 36.2; O2SAT 94
[2025-05-13] MEDS: IBUPROFEN 600 MG TABLET PO ×2 (05:09)
[2025-05-13 06:48] LABS: Add Manual Diff / Slide Review NO; Hematocrit 26.0 % (36-46); Hemoglobin 8.9 g/dL (12.0-16.0); Lymphocytes Absolute Auto 400 /uL (1100-4500); Mean Corpuscular HGB Conc 34.3 % (30-36); Mean Corpuscular Hemoglobin 31.7 PG (26-34); Mean Corpuscular Volume 92.4 fL (80-100); Platelet Count 343 X10^3/uL (150-400)
--- NOTE | 2025-05-13 07:02 | PM.DS.IH.1 ---
History of Present Illness History of Present Illness Chief complaint: Right Total Knee Arthroplasty Narrative: 75 year old female with a past medical history of hypertension, Meniere's disease, GERD and essential thrombocytosis under the care of Dr. Arellano ([facility])?presented to [facility] on 05/12/25 for planned right total knee arthroplasty by Dr. Wynne. ?This elective procedure was indicated by chronic right arthritis limiting her normal activities of enjoyment and living such as gardening and walking. On the date of surgery there were no changes of the medical history, medications or allergies. ?Consent had been obtained and the patient was in agreement to proceed with planned surgery. This morning the patient reports she is doing very well with mild pain after surgery. Pain has been controlled with oral medications including ibuprofen and tylenol. She used oxycodone on one occasion overnight. The patient has worked with physical therapy who recommend discharge home with assistance available. The patient denies chest pain, dyspnea, nausea, emesis, fever and chills. Patient denies new numbness and tingling in the operative leg. She is making urine spontaneously. The patient has all of their post operative medications at home and feels ready to discharge home today.? Discharge Providers Provider Discharge Date: 05/13/25 Primary care physician: Kristyn Prado DO Consults: 05/12/25 06:00 Consult to Anesthesiology Routine Comment: Consulting Provider: Anesthesiologist Reason for consultation: Regional block for post-operative pain control 05/12/25 14:45 Consult to Physical Therapy Evaluate & Treat Comment: post op TKA Physician Instructions: Evaluate and Treat Discharge provider: SONJA Connelly Dr Summary Hospital Course Hospital Course: On 05/12/25 the patient was brought to the operating room for planned right total knee arthroplasty by Dr Wynne.? There were no known intraoperative complications.? The patient was transferred to the postoperative recovery area and monitored appropriately.? Later the patient was transferred to the acute care unit [facility] for monitoring overnight and physical therapy.? There were no acute events overnight.? On postoperative day 1, the patient's vital signs were stable and she was making urine spontaneously.? The patient denied chest pain, dyspnea, fever, chills, nausea and emesis on postoperative day 1.? Physical therapy recommended discharge home. Pain was well-controlled on oral analgesics and the patient was in agreement with preoperative plan to discharge home on postoperative day 1. Her friend is planning on picking her up around 11am. She did not take any hydroxyzine overnight and she tolerated her normal muscle cramps. Per her overnight nurse, her ability to sleep was limited and she took zolpidem last night for this reason. Hemoglobin 10.5 this morning (11.4 preoperatively) Platelets 342 this morning (457 pre operatively) Exam Vital Signs (past 8 hours): - 05/13/25 00:00 05/13/25 04:00 Temperature 97.2 F L 97.2 F L Pulse Rate 83 84 Respiratory Rate 16 12 Blood Pressure 132/53 L 138/56 L Pulse Oximetry 95 94 Oxygen Flow Rate 0 0 Oxygen Delivery Method Room Air Oxygen Flow Rate 0 Narrative Exam Narrative: Well developed, well nourished 75 year old female Normal respiratory effort on room air Patient is resting comfortably in bed Aquacell dressing is dry and intact to right knee without drainage, erythema, warmth or ecchymosis 4/5 strength in dorsiflexion, plantarflexion, knee extension and extensor hallucis longus Calves are soft and non tender to operative extremity, SCDs in place Palpable dorsalis pedis pulse, sensation grossly in tact to light touch about right foot Objective Labs 05/13/25 06:09 Labs: Laboratory Results - last 24 hr 05/12/25 05/12/25 05/13/25 09:15 10:24 06:09 WBC 4.5 9.6 D RBC 3.30 L 2.81 L Hgb 10.5 L 8.9 L Hct 30.6 L 26.0 L MCV 92.8 92.4 MCH 31.8 31.7 MCHC 34.3 34.3 RDW 13.5 13.8 Plt Count 342 343 Neut % (Auto) 78.1 H 88.7 H Lymph % (Auto) 12.0 L 4.1 L Vilas % (Auto) 8.0 7.0 Eos % (Auto) 1.5 L 0.0 L Baso % (Auto) 0.4 0.2 Neut # (Auto) 3500 8500 H Lymph # (Auto) 500 L 400 L Vilas # (Auto) 400 700 Eos # (Auto) 100 0 Baso # (Auto) 0 0 POC Whole Bld Glucose 105 H [facility] Medical History (Updated 05/07/25 @ 16:24 by Michaelle Vann PA-C) Sciatica Facet arthropathy, lumbar Tubular adenoma of colon Hyponatremia Osteoarthritis of thumbs, bilateral Meniere's disease (12/16/14) Thrombocytosis (06/26/18) Bilateral primary osteoarthritis of knee Cervical stenosis of spine COVID Hypertension Diverticulosis Meniere's disease (1993) Finger fracture, left (2007) Cataract (2013) Hearing loss (2012) Tinnitus (1993) Vertigo (1993) Chicken pox Foot pain (2009) Measles Hayfever Allergic rhinitis Concussion Surgical History History of hysterectomy (06/26/86) Anesthesia complication History of orthopedic surgery (2007) Status post hysterectomy (1986) Family History Father Colon cancer Brain tumor Pneumonia Mother Hypertension Stroke Sister Breast cancer Brother Alcoholism Alcoholic liver disease Social History marital status: number of children: 2 household members: spouse lives independently: Yes caregiver/support person: No pets and animals: No current occupational exposures/hazards: No derrick/adventist: Non advent special derrick needs: No travel history: other sexual history: impotent. Due to medications for enlarged prostate leisure activities: exercise and reading seatbelt use: always helmet use: Yes working smoke detector in home: Yes fire extinguisher in home: Yes carbon monox detector in home: Yes do you feel safe at home: Yes Smoking Status: Never smoker second hand exposure: No alcohol intake: never substance use type: does not use during the past year weight has: remained stable well-balanced diet: daily or most days daily servings fruits/ve-4 caffeine: Yes eating out: rarely or never Type(s) of exercise: walking Discharge Assessment & Plan Assessment and Plan Assessment: 75 year old female with a past medical history of hypertension, Meniere's disease, GERD and essential thrombocytosis under the care of Dr. Arellano ([facility])?post operative day 1 from a right total knee arthroplasty by Dr. Wynne at [facility] on 05/12/25. The patient is recovering well with appropriate pain control on oral analgesics and stable vital signs. The patient is comfortable with planned discharge home today on post operative day one. Plan:? - Weightbearing as tolerated to right lower extremity with front wheeled walker? ? - DVT prophylaxis with 81 mg of aspirin twice daily for 6 weeks - Continue multimodal analgesia with Tylenol, meloxicam and oxycodone. Hydroxyzine as needed for muscle spasms?? - Bowel regimen as needed? ? - Physical therapy recommends discharge home - Follow up with orthopedics 2 weeks post operatively? ? - All post operative medications ordered at pre operative visit? ? - Resume home Jakafi 48 hours after surgery - Ice to surgical site as needed? All patient questions were answered and they verbalized agreement with the above plan. Call [facility] with any questions or concerns.? This document was generated in part using voice recognition software.? Although every effort is made to edit the content, forestry support specialist errors may occur. Discharge Plan Discharge Plan Patient Disposition: Home Provider Discharge Comment: SURGICAL PROCEDURE: Right Total Knee Arthroplasty SURGEON: Dr. Wynne at [facility] DATE: 05/12/25 ACTIVITY INSTRUCTIONS - You are weight bearing as tolerated to the right lower extremity with a front wheeled walker at all times. We encourage active movement of the toes and ankle every hour while awake to prevent stiffness. - Do not drive while taking narcotic medications and recovering from your surgery. - We want you to follow a quiet knee protocol for the first two weeks after surgery. This means: Do not stand for more than 20 minutes at a time Ambulate less than 1,000 steps per day Bend the knee as far as you can with your own muscles and straighten it all the way out by resting your heel on a flat surface and letting your knee hang down Avoid anyone pushing your knee to bend it or straighten it - After two weeks we will want you to get more aggressive in your work with physical therapy, but we need to let your body heal first DRESSING CARE - You have an aquacell dressing on top of your incision. This is a waterproof dressing and so you may shower with the dressing so long as the dressing remains clean and dry to the surgical site. Leave the dressing in place until your follow up in the orthopedic clinic. If the dressing becomes saturated or is disrupted call our office for further guidance. - Your dressing is covered with a soft cotton dressing and sarah wrap for compression. You may remove these dressings when you return home but should leave the waterproof dressing in place. POST-OPERATIVE INSTRUCTIONS - If you notice fever, chills, night sweats, redness, excessive drainage or bleeding, a sharp increase in pain that persists after taking pain medication, pain in your calf muscles, chest pain or trouble breathing please unwrap the dressing and investigate. Then call the office with findings for further guidance. If it is after regular clinic hours, please seek care in the emergency department. - In the rare case of any severe chest pain and trouble breathing, seek immediate care, do not delay for a call to the clinic. - Use ice to the affected extremity for 15-30 minutes increments as much as possible. Use your ice machine as discussed in your pre-operative visit. - Keep extremity elevated to the level of the heart to reduce swelling. You can use ice on top of the dressing to reduce pain and swelling of the extremity. - You should consume a low sodium diet after surgery to limit swelling. You can gradually resume your normal diet if you have no nausea or vomiting - Physical therapy should begin about 7-10 days after surgery. Your first evaluation should already be scheduled. Call our office if you cannot schedule your therapy in the expected time frame. - Your follow up is already scheduled for 2 weeks after your surgery at the Orthopedic clinic. - You should have no dental procedures for 6 months following your total joint replacement. - Please refer to Dr. Wynne?s educational videos on Tvoopube for a reference on your post operative care. [email or web address] - Call [facility] at [phone] with any questions or concerns. MEDICATIONS - Please refer to the ?Orthopedic Medication Instructions? sheet provided at your pre-operative visit. Written instructions are provided below as a reminder. - Take two pills of 500 mg Tylenol (acetaminophen) every 8 hours regardless of pain in a scheduled manner. Do not exceed 3000 mg of Tylenol (from ALL sources, including over the counter combination products) in a 24-hour period due to risk of liver injury. - Take two pills of naproxen every 12 hours. This is NSAID (anti-inflammatory) medication to reduce swelling and pain. - Take one pill of 5 mg oxycodone by mouth every 4-6 hours as needed for break through pain after taking your regular Tylenol and anti-inflammatory - Oxycodone and Tramadol are opioids, which means they are similar to morphine, heroin or fentanyl. Our goal is for you to take as little of this as possible because the side effects from it can be very severe. If you are able to get through your recovery process taking 10 pills or less, please share your story with other patients by logging onto [email or web address] and sharing what strategies you used to avoid these dangerous medications. You can also read other patients? stories on that website to get strategies that go above and beyond what we have discussed to help you manage this pain while avoiding opioids. - Take 200 mg of Colace by mouth every 12 hours for constipation. Narcotic medications such as oxycodone and tramadol as well as anesthesia may increase your risk of constipation after surgery. - Take 4 mg of Zofran by mouth every 6 hours as needed for uncontrolled nausea or vomiting. If you have persistent nausea and vomiting call our office or seek care in the emergency department. - Take one pill of 81 mg of aspirin two times daily 12 hours apart for 6 weeks for blood clot prevention. Take this medication regardless of pain. - Take three pills of 650 mg tranexamic acid once daily for 3 days following surgery. This is to reduce bleeding and swelling in your knee. - Take a proton pump inhibitor such as Pantoprazole or Omeprazole if you have a history of acid reflux or are noticing stomach irritation. NSAIDs and aspirin can both cause stomach irritation and that medication can help avoid stomach issues. - If you stopped taking a ?biologic? medication that you normally take for an issue such as rheumatoid arthritis or psoriasis prior to surgery, do not restart it until we have seen you back in clinic and confirmed that your wound is healed. - RESUME YOUR JAKAFI 48 HOURS AFTER SURGERY. This means you should take your first dose on Monday05/14/25. - Resume all of your normal home medications tomorrow morning unless specified otherwise by your surgeon. Discharge orders & Medications Discharge Orders: Discharge (Order); Ordered 05/13/25 Ordered By: Michaelle Vann Prescriptions: Continued cetirizine 10 MG tablet 10 mg PO PRN PRN (Reason: Allergy Symptoms) Qty: 0 estradiol 0.01 % (0.1 mg/gram) cream 1 g vaginal 2XW Qty: 42.5 6RF liquid zolpidem PO cholecalciferol (vitamin D3) 50 mcg (2,000 unit) capsule 50 mcg PO DAILY Jakafi 10 mg tablet 10 mg PO BID atorvastatin 20 mg tablet 20 mg PO BEDTIME Qty: 90 3RF gabapentin 600 mg tablet 1,200 mg PO ONCE PM Qty: 180 3RF multivitamin Tablet 1 tab PO DAILY meclizine 50 mg tablet 100 mg PO DAILY PRN (Reason: dizziness) pantoprazole 40 mg tablet,delayed release (DR/EC) 40 mg PO DAILY Qty: 30 0RF Rx Instructions: Take 1 tablet by mouth daily while taking the meloxicam oxycodone 5 mg capsule 5 mg PO Q6H PRN (Reason: pain (scale score 7-10)) Qty: 20 0RF Rx Instructions: Take 1 tablet of 5 mg oxycodone by mouth every 6 hours as needed for pain control. Do not take with zolpidem docusate sodium [Colace] 100 mg capsule 100 mg PO BID Qty: 14 0RF Rx Instructions: Take 1 tablet of colace every 12 hours as needed for constipation while taking the narcotic medication aspirin 81 mg tablet 81 mg PO BID 28 Days Qty: 56 0RF Rx Instructions: Take 1 tablet of 81 mg every 12 hours for DVT prophylaxis for 4 weeks ondansetron 4 mg tablet,disintegrating 4 mg PO Q8H PRN (Reason: nausea and vomiting) Qty: 12 0RF Rx Instructions: Place 1 tablet of 4 mg ondansetron under your tongue as needed for nausea or vomiting acetaminophen 500 mg capsule 1,000 mg PO QID PRN (Reason: pain) 14 Days Qty: 90 0RF hydroxyzine pamoate 25 mg capsule 25 mg PO BEDTIME Qty: 10 0RF Rx Instructions: Take before bed only for muscle spasms trazodone 50 mg tablet 50 mg PO BEDTIME PRN (Reason: sleep) losartan-hydrochlorothiazide 50-12.5 mg tablet 0.5 tab PO BID Discontinued zolpidem 5 mg tablet 5 mg PO BEDTIME PRN (Reason: insomnia) Qty: 20 3RF aspirin 81 mg Capsule 81 mg PO DAILY mupirocin 2 % ointment 1 applic topical BID Qty: 22 0RF Rx Instructions: Apply to your nares every 12 hours for 5 days prior to surgery Follow up/Referrals: Kristyn Prado DO [Primary Care Provider, Medical] Visit Report/Discharge Packet Instructions: DI for Knee Replacement, DI for Prescription Opioid Use Stand Alone Forms: Patient Portal/API Print Language: Lithuanian Discharge Data Primary Care Provider: Kristyn Prado Attending Provider: Rosalio Wynne VTE Deep Vein Thrombosis/Pulmonary Embolism Present on Admission: No IH PROFEE Charge Codes Discharge inpatient/observation: [id number]
[2025-05-13 07:08] VITALS: BP 154/62; PULSE 76; RESP 16; TEMP 36.3; O2SAT 99
[2025-05-13] MEDS: TRANEXAMIC ACID 650 MG TABLET 1950 MG PO (08:32)
[2025-05-13] MEDS: ASPIRIN EC 81 MG TABLET PO (08:32)
--- NOTE | 2025-05-13 09:18 | CM.DANOTE ---
DCP Assessment Note: Pt is a 75yo female, resident [facility], is admitted s/p R TKA. Pt lives in a house with her , Rosalio. Pt's Primary Care Provider is Dr. Kristyn Prado and insurance is Medicare and [employer]. Reviewed chart and discussed with multidisciplinary team pt's medical status and initial discharge needs. Per Ortho Surgeon, pt cleared for discharge home and will have follow up in clinic. Pending PT evaluation for clearance. Plan: Anticipating discharge home with spouse, Rosalio, to transport when medically cleared. CM team will follow closely for coordination of discharge plans. SHERIDAN Chatterjee Discharge Planning/Care Management CM Discharge Assessment Start: 05/12/25 14:45 Freq: Status: Active Protocol: Document 05/13/25 09:13 MW (Rec: 05/13/25 09:18 MW [id number]) Discharge Planning Assessment Assigned Discharge BELLA Wahl Clinical Data Programmer Provider Dr. Kristyn Prado Insurance Medicare,[facility] DPOA/Assigned Rosalio Donnell, Spouse Designee Name Contact Information [phone] Advance Directives? Yes Advance Directives No on File History Provided By Medical Record Has Patient been No admitted in last 30 days? Prior Living House Arrangements Household Members spouse Type of Drives own vehicle transporation used prior to admit Independent with ADL Yes 's Is patient alert and Yes oriented? Caregiver for No Another Discharge Plan Home Referrals Initiated None needed Review Status In Process Please Provide Date 05/13/25 Initial DC Assessment Was Performed Next Review Type Continued Stay Review
--- NOTE | 2025-05-13 09:50 | PT.IPTN ---
Current Diagnoses Unilateral primary osteoarthritis, right knee (05/12/25) Surgery Performed Operation Date: 05/12/25 11:15 Actual Procedures p Total Knee Arthroplasty(Right) - Rosalio Wynne MD Physical Therapy Treatment Note M2 PT-IP Current Condition Start: 05/12/25 16:14 Freq: NEEDED Status: Active Protocol: Document 05/13/25 08:43 AB (Rec: 05/13/25 09:43 AB Laptop) Physical Therapy Current Condition Current Condition Evaluation Date 05/11/25 Treatment Diagnosis Impaired mobility Onset Date 05/11/25 M3 PT-IP Subjective Start: 05/12/25 16:14 Freq: NEEDED Status: Active Protocol: Document 05/13/25 08:43 AB (Rec: 05/13/25 09:43 AB Laptop) Subjective Physical Therapy Visit Type Type Treatment Note Visit Start Time 08:47 Visit Stop Time 09:27 Number of FUNERAL DRIVER Visits 1 Physical Therapy Visit Comments Patient Comments Patient rates pain 9/10 R knee, start of session, reports feeling a little light headed and patient attributes to pain medication. Christina ins agreeable to participate in physical therapy. Therapy Pain Assessment Pain When Pain Assessed At Rest Pain Present Pain Present Denied Pain M4 PT-IP Mobility and Gait Start: 05/12/25 16:14 Freq: NEEDED Status: Active Protocol: Document 05/13/25 08:43 AB (Rec: 05/13/25 09:43 AB Laptop) PT-Bed Mobility Assessment Rolling Type of Rolling Roll to Left Level of Assist Independent Supine to Sit Supine to Sit Independent Scooting Scooting to Edge of Independent Bed PT-Transfer Assessment Sit to and From Stand Sit to and from Independent,Standby Assistance Stand Equipment Transfer Assistive Gait Belt,Front Wheeled Walker Device Transfers Transfer Destination Bed Transfer Technique Stand Step Pivot Transfer Ability Level of Assist Contact Guard Assistance Comments Mobility Comments Patient CGA ambulating 6 feet chair to bed with FWW WBAT RLE. Patient reports ambulating to bathroom, then chair with nursing this am prior to physical therapy. VC to avoid stepping too close to front of FWW. Patient questions height of FWW and patient made aware height is correct. Independent for sit to stand by end of session. Gait Assessment Gait Gait Assistance Standby Assistance Required: Distance (Feet) 65 Assistive Devices Assistive Device Gait Belt,Front Wheeled Walker Comments Gait Comments Patient ambulates 65 feet with FWW with supervision WBAT R LE. ( VC for FWW position and pt ed WBAT status during 6 feet amb to chair ) Patient has met goals for physical therapy. Patient left in bed, alarm on, call light in place. PT-Balance Assessment Sitting Balance and Reactions Static Sitting Normal Balance Ability Dynamic Sitting Normal Balance Ability Standing Balance and Reactions Static Standing Fair Balance Ability Dynamic Standing Fair Balance Ability M5 PT-IP Objective Assessments Start: 05/12/25 16:14 Freq: NEEDED Status: Active Protocol: Document 05/12/25 16:14 KJ (Rec: 05/12/25 16:22 KJ [id number]) Orientation Orientation/Cognition Level of Alertness Lethargic Orientation Name,Age,Birthday,Month,Date,Year,Day of Week,Place, Situation Gross Range of Motion Upper Extremity ROM Assessment Within Functional Limits Lower Extremity ROM Assessment Left Impaired Impairments knee Strength Upper Extremity Strength Assessment Within Functional Limits Lower Extremity Strength Assessment Left Impaired Knee pt is able to perform a quad set. M6 PT-IP Treatment Start: 05/12/25 16:14 Freq: NEEDED Status: Active Protocol: Document 05/13/25 08:43 AB (Rec: 05/13/25 09:43 AB Laptop) Physical Therapy Treatment Exercises Exercises Ankle Pumps,Quad Sets,Heel Slides Knee ROM Measurement Seated knee ext stretch, LAQ, and trial of SLR but unab Education Education Provided Weight Bearing Status,Safety M7 PT-IP Assessment and Plan Start: 05/12/25 16:14 Freq: NEEDED Status: Active Protocol: Document 05/13/25 08:43 AB (Rec: 05/13/25 09:43 AB Laptop) PT Summary Assessment and Plan Potential Rehabilitation Excellent Potential Status of Condition Stable at Evaluation Summary Impairments Pain,ROM,Strength,Balance Assessment Summary Patient has met goals for physical therapy Goals Bed Mobility Goal Independent Transfer Goal Standby Assistance Gait Goal Standby Assistance Gait Distance 50 Days to Meet Goals 0 Frequency of Treatment Frequency Of Twice a Day Treatment Treatment Plan Physical Therapy Bed Mobility Training,Transfer Training,Gait Training, Treatment Plan Therapeutic Exercise Other Progress to ambulation in preparation for discharge Recommendations and home Next Treatment Focus Weight Bearing Status Weight Bearing Weight Bear as Tolerated Status Recommendations To Nursing Amount of Assist 1 Person Assist Needed Discharge Recommendations PT Discharge Home with / Assist Available Recommendations Transportation Needs Private Vehicle at Discharge
== END 2025-05-13 11:10 | disposition home or self-care (01) ==
LOC: OR 08:33 → AC 14:30
PROVIDERS: Nurse Anesthetist, Certified Registered; Physician Assistant Surgical; PCP Family Medicine; Referring Provider Orthopaedic Surgery Adult Reconstructive Orthopaedic Surgery; Visit Provider Orthopaedic Surgery Adult Reconstructive Orthopaedic Surgery
PROC: 0SRC0JZ Replacement of Right Knee Joint with Synthetic Substitute, Open Approach (ICD-10-PCS; CPT 27447; principal; 2025-05-12 11:15)
DX: M17.11 Unilateral primary osteoarthritis, right knee (principal); I10 Essential (primary) hypertension; K21.9 Gastro-esophageal reflux disease without esophagitis; D47.3 Essential (hemorrhagic) thrombocythemia
CPT/HCPCS: 27447; 36415; 73560; 82962; 85025; 97110; 97161; 97530; C1776; C1713; J0689; J1100; J1171; J1885; J2405; J2704; J3010; J3475; J3490; J7120; J8501

== ENCOUNTER → 2025-06-10 10:43 | Outpatient (CLI) | payer MEDICARE, OTHER, SELFPAY ==
[2025-05-12 15:43] VITALS: BMI 20.3
--- NOTE | 2025-06-10 12:35 | ST.SWALLOW ---
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 Prado. Pt has a PMH that includes GERD and Esophageal Dysmotility. Pt reported that food and pills get stuck (pointing to sternal notch). Pt described her swallow as very slow. Her GERD was described in the records obtained as 2024: severe despite daily PPI H2 Bl. Pt reported eating small bites, chewing well and drinking liquids throughout her meals. Pt had an EGD performed on 11/23/22. The results were reported to be normal with biopsies taken for further evaluation. Pt reported the results found no problems. She denied neurological diagnoses, head/neck injury/ surgery and coughing/choking during meals. Subjective Pt was brought to the flouroscopy suite in a wheel Observations chair as she recently had knee surgery. Pt appeared to be uncomfortable, adding that her sciatic nerve was also painful. She was seated in the flouroscopy chair with directions and procedures explained for her. She indicated she understood and agreed to proceed. Patient Positioning Position View Lat-A/P Imaging Lateral View Textures Administered Trials Presented Thin Liquid via Spoon (IDDSI 0),Thin Liquid via Cup ( IDDSI 0),Extremely Thick Liquid via Spoon (IDDSI 4), Regular (IDDSI 7) Barium Tablet Yes The IDDSI Framework Protocol: IDDSI.1 Oral Impairment Source: The Modified Barium Swallow Impairment Profile (MBSImP??) Lip Closure No labial escape Tongue Control Cohesive bolus between tongue to palatal seal During Bolus Hold Bolus Preparation/ Timely & efficient chewing & mashing Mastication Bolus Transport/ Brisk tongue motion Lingual Motion Oral Residue Complete oral clearance Initiation of Bolus head at posterior angle of ramus (first hyoid Pharyngeal Swallow excursion) Additional Oral *OME and DKS were observed to be WNL. Impairment *Dentition natural and in good hygiene Observations *Mastication observed with rotary chew pattern. *Good bolus formation, control and AP transition. *Velopharyngeal closure was WNL. Oral phase of swallow observed to be WNL Pharyngeal Impairment Source: The Modified Barium Swallow Impairment Profile (MBSImP??) Soft Palate No bolus between soft palate & pharyngeal wall Elevation Laryngeal Elevation Part.sup.move.thyroid cart/part.approx.arytenoids to epiglot.petiole Anterior Hyoid Complete anterior movement Excursion Epiglottic Movement Complete inversion Laryngeal Vestibular Complete; no air/contrast in laryngeal vestibule Closure Pharyngeal Stripping Present - complete Wave Pharyngoesophageal Complete distention & complete duration; no obstruction Segment Opening of flow Tongue Base No contrast between tongue base & posterior pharyngeal Retraction wall Pharyngeal Residue Trace residue within/on pharyngeal structures Additional *Hyoid/laryngeal elevation and epiglottic inversion Pharyngeal were judged to be good Impairment *Tongue base retraction was good. Observations *Pharyngeal stripping wave and cricopharyngeal opening appeared adequate and did not appear to impede bolus flow. *Post-swallow residue was minimal. Pt did sensate to residue and independently cleared with dry swallow. *No laryngeal penetration or aspiration was observed. *Pharyngeal phase WNL. *Flash penetration observed above the folds with no visible laryngeal residue (PAS2). Immediate reflexive cough observed following trial. Pharyngeal phase of swallow observed to be WNL A/P View Textures Administered Trials Presented Thin Liquid via Cup (IDDSI 0) The IDDSI Framework Protocol: IDDSI.1 A/P View Observations Esophageal Clearance Esophageal retention Upright Position Vocal Fold Function Good Esophageal Function Slowed Clearing,Poor Motility,Stasis Additional A-P Water, thin barium and calibrated barium tablet were Observations presented for AP trials *AP and lateral esophageal scans indicated esophageal retention from area of the clavicles to the LES. Several water swallows were observed to clear most of esophageal contents to the stomach. *Barium liquid was observed to clear to the stomach in a timely manner *Barium table was observed to stop at the aortic arch requiring additional water to pass to the level of the LES. Additional water was needed to pass the tablet into the stomach Pharyngeal phase of swallow observed to be WNL Clinical Impressions Dysphagia Type Esophageal Findings Oral and pharyngeal swallow phases observed to be WNL. Esophageal phase demonstrated retention with no retroflow in upper esophagus consistent with pt's report of globus sensation. Pt presented with esophageal esophageal dysphagia. Recommend GI referral for further evaluation and mangement of esophageal dysphagia. Patient Appropriate No: Esophageal dysphagia for Therapy Recommendations Treatment Plan Recommended GI Consult Referrals
== END ==
LOC: RAD 10:44
PROVIDERS: PCP Family Medicine; Referring Provider Family Medicine; Visit Provider Family Medicine
DX: R13.10 Dysphagia, unspecified (principal)
CPT/HCPCS: 74230; 92611